=== PATIENT | female | born 1960 | race Caucasian/White ===

== ENCOUNTER 2021-11-26 11:50 | Outpatient (REF) | payer MEDICARE, SELFPAY ==
[2021-11-26 14:13] LABS: MANUAL DIFF FLAG NO
[2021-11-26 14:17] LABS: Basophils Absolute Auto 0.1 X10*3/uL (0.0-0.2); Basophils Percent Auto 0.9 % (0-2); Eosinophils Absolute Auto 0.2 X10*3/uL (0.0-0.4); Hematocrit 42.3 % (37.0-47.0); Hemoglobin 14.3 g/dl (12.0-16.0); Imm Gran Abs Auto 0.03 X10*3/uL (0.00-0.03); Imm Gran Pct Auto 0.3 % (0.0-0.4); Lymphocytes Absolute Auto 3.9 X10*3/uL (1.2-4.9); Lymphocytes Percent Auto 41.9 % (20-40); Mean Corpuscular HGB Conc 33.8 g/dl (31.0-35.0); Mean Corpuscular Hemoglobin 31.7 pg (27.0-33.0); Mean Corpuscular Volume 93.8 fL (80.0-98.0); Mean Platelet Volume 10.5 fL (9.4-12.3); Monocytes Absolute Auto 0.5 X10*3/uL (0.1-1.2); Monocytes Percent Auto 5.1 % (2-11); Neutrophils Absolute Auto 4.7 x10*3/uL (2.0-8.3); Neutrophils Percent Auto 49.8 % (45-73); Platelet Count 262 X10*3/uL (160-400); Red Blood Count 4.51 X10*6/uL (4.20-5.50); Red Cell Distribution Width 13.1 % (11.0-16.0); White Blood Count 9.4 X10*3/uL (4.8-10.8)
[2021-11-26 14:29] LABS: Alanine Aminotransferase 10 U/L (0-31); Albumin Level 4.3 g/dL (3.5-5.0); Alkaline Phosphatase 81 U/L (39-117); Anion Gap 13 (12-20); Aspartate Amino Transferase 16 U/L (5-31); Bilirubin Total 0.4 mg/dL (0.0-1.0); Blood Urea Nitrogen 10 mg/dL (9-16); Calcium 9.8 mg/dL (8.4-10.2); Carbon Dioxide 27 mmol/L (22-29); Chloride 104 mmol/L (96-108); Cholesterol 198 mg/dL; Estimated Glomerular Filt Rate > 60; Glucose Fasting 87 mg/dL (60-99); HDL Cholesterol 52 mg/dL; LDL Cholesterol Calculated 132 mg/dl; Potassium 4.8 mmol/L (3.3-5.1); Sodium 139 mmol/L (135-145); Total Protein 7.2 g/dL (6.5-8.0); Triglycerides 73 mg/dL
[2021-11-26 14:49] LABS: TSH reflex Free T4 0.39 uIU/mL (0.32-4.0)
[2021-11-26 14:58] LABS: Appearance Urine CLEAR; Color Urine YELLOW; Glucose Urine UA NEG (NEG); Leukocyte Esterase Urine NEG (NEG); Nitrite Urine NEG (NEG); PH 7.5 (5.0-8.0); Specific Gravity - Urine <= 1.005 (1.005-1.025); Urine Blood NEG (NEG); Urine Ketones NEG (NEG); Urine Protein NEG (NEG-TRACE)
== END 2021-11-26 11:51 | disposition home or self-care (01) ==
LOC: HO.WFDLDS 11:50
PROVIDERS: Hospitalist; Visit Provider Family Medicine
DX: Z00.00 Encounter for general adult medical examination without abnormal findings (principal)
CPT/HCPCS: 36415; 80053; 80061; 81003; 84443; 85025; 85027

== ENCOUNTER → 2022-02-01 09:44 | Outpatient (REF) | payer MEDICARE, MEDICAID, SELFPAY ==
--- NOTE | 2022-02-01 09:48 | CA_ITS ---
Transthoracic Echocardiogram Patient (Last, First, Middle): Naomy Cervantes, Gender: Female Date of : 1960 Age: 61 Procedure Date: 02/01/2022 Procedure Type: Transthoracic Echocardiogram Location: OP Height: 165.1 cm Weight: 57.61 kg BSA: 1.63 m2 Heart Rate: bpm BP: 130 / 82 mmHg Wood Scrap Handler: TO Referring MD: Ramesh Ventura MD Symptoms: R01.1 - Cardiac murmur, unspecified Study Quality: Fair Conclusions: - Normal left ventricular size and systolic function. There is mildly increased left ventricular wall thickness. The visually estimated ejection fraction is between 60-65%. - Normal right ventricular cavity size and systolic function. - The left atrium is moderately dilated. - There is mild dilatation of the ascending aorta measuring 3.60 cm. Findings Left Ventricle Normal left ventricular size and systolic function. There is mildly increased left ventricular wall thickness. The visually estimated ejection fraction is between 60-65%. There is no evidence of regional wall motion abnormalities. Abnormal diastolic function is noted. Spectral Doppler is indicative of an impaired relaxation filling pattern. E/E prime ratio is between 8 and 15 consistent with indeterminate filling pressures. Right Ventricle Normal right ventricular cavity size and systolic function. Atria The left atrium is moderately dilated. Aortic Valve There is a normal trileaflet aortic valve. There is mild calcification of the aortic valve. There is no aortic valve stenosis. There is no aortic valve regurgitation. Mitral Valve The mitral valve appears normal. There is trace mitral valve regurgitation. There is no mitral valve stenosis. Pulmonic Valve Normal pulmonic valve structure and function. There is no pulmonic valve regurgitation. Tricuspid Valve Normal tricuspid valve structure and function. There is no tricuspid valve regurgitation. Tricuspid regurgitation envelope is inadequate for calculation of right ventricular systolic pressure. Normal right atrial pressure. Great Vessels There is mild dilatation of the ascending aorta measuring 3.60 cm. The visualized portions of the pulmonary artery and branches are normal. Venous The inferior vena cava is normal in size and collapses greater than 50% with inspiration. Pericardium/Pleural There is no evidence of pericardial effusion. Prior Study Comparison No prior study available for comparison. Measurements 2D Linear Measurements IVSd: 1.10 0.6-0.9/0.6-1.0 cm LVIDd: 4.89 3.9-5.3/4.2-5.9 cm LVIDd Index: 3.00 2.4-3.2/2.2-3.1 cm/m2 LVIDs: 3.47 2.0-3.6 cm LVPWd: 0.97 0.7-1.1 cm LA Diam: 3.90 2.7-3.8/3.0-4.0 cm LAIDs Index: 2.39 1.5-2.3 cm/m2 LV Mass: 228.58 67-162/88-224 g LV Mass Index: 140.23 43-95/49-115 g/m2 LVOT Diam: 2.10 3.0+(-)1.3 cm 2D Systolic Function EF 4C: 54.50 >55% EF 2C: 57.00 >55% EF BiP: 55.70 >55% Mitral Valve MV Pk E: 0.65 MV PK A: 0.80 MV Decel Time: 229.00 E/A: 0.80 E'Lateral: 6.74 E'Medial: 6.20 E/E' Med: 10.40 E/E' Lat: 9.60 PHT: 67.00 MVA PHT: 3.28 Decel Barry: 2.83 Aortic Valve AoV Pk Tiago: 1.68 AoV Mn Tiago: 1.07 AoV VTI: 0.35 AoV Pk Grad: 11.00 Aov Mn Grad: 5.00 ERVIN Cont.VTI: 2.15 LVOT LVOT Pk Tiago: 0.99 LVOT Mn Tiago: 0.60 LVOT VTI: 0.22 LVOT Pk Grad: 4.00 LVOT Mn Grad: 2.00 LVOT Diam: 2.10 LVOT Area: 3.46 Diastolic Function MV Pk E: 0.65 MV Pk A: 0.80 E/A: 0.80 E'Medial: 6.20 E/E' Med: 10.40 E' Laterial: 6.74 E/E' Lat: 9.60 Right Ventricle TAPSE (mm): 20.70 TVS' Tiago: 12.10 Tricuspid Valve RA Press: 3.00 Great Vessels Aorta Sinus of Valsalva: 3.51 2.0-3.5 cm Ao Asc: 3.60 2.1-3.4 cm Updated in Other Vendor System with Status of Final Carlitos Torres MD electronically signed on 02/04/2022 11:05:21 PM with status of Final
== END ==
LOC: HO.CARD 09:44
PROVIDERS: PCP Family Medicine; Visit Provider Family Medicine
DX: R01.1 Cardiac murmur, unspecified (principal)
CPT/HCPCS: 93306

== ENCOUNTER 2022-07-29 10:59 | Outpatient (REF) | payer MEDICARE, MEDICAID, SELFPAY ==
--- NOTE | ~2022-07-29 | XR_ITS ---
EXAMINATION: XR LUMBOSACRAL SPINE CLINICAL INFORMATION: Sciatica COMPARISON: None TECHNIQUE: Three views of the lumbosacral spine. FINDINGS: No acute fracture or traumatic malalignment. Vertebral body heights maintained. Mild loss of disc space height at L2-L3 and L4-L5. Facet arthropathy throughout the lumbar spine. Mild bilateral sacroiliac arthrosis. A darcy pin projects over the right pelvis, presumably external to the patient. Clinical correlation recommended. XR/XR lumbar spine 2-3V IMPRESSION: No acute findings. Lumbar spondylosis as described.
--- NOTE | ~2022-07-29 | XR_ITS ---
EXAMINATION: XR HIP, LEFT CLINICAL INFORMATION: Sciatica COMPARISON: None TECHNIQUE: Two views of the left hip. FINDINGS: Crescentic sclerosis within the superior femoral head reflective of avascular necrosis. Femoral head remains spherical without evidence of subchondral bone plate collapse. Mild hip joint space narrowing. Soft tissues unremarkable. XR/XR hip LT min 2V IMPRESSION: Left femoral head avascular necrosis, without collapse of the subchondral bone plate at this time.
--- NOTE | ~2022-07-29 | XR_ITS ---
EXAMINATION: XR WRIST, RIGHT CLINICAL INFORMATION: Pain COMPARISON: None TECHNIQUE: PA, lateral, and oblique views of the right wrist. FINDINGS: No acute fracture or dislocation. Mild radiocarpal joint space narrowing. Joint spaces otherwise maintained. Small marginal ossified is along the first CMC joint. No erosive changes. Soft tissues unremarkable. XR/XR wrist RT 2V IMPRESSION: * No acute findings. * Mild degenerative changes as described.
[2022-07-29 11:48] LABS: MANUAL DIFF FLAG NO
[2022-07-29 12:04] LABS: Basophils Absolute Auto 0.1 X10*3/uL (0.0-0.2); Basophils Percent Auto 0.7 % (0-2); Eosinophils Absolute Auto 0.2 X10*3/uL (0.0-0.4); Eosinophils Percent Auto 1.5 % (0-4); Hematocrit 42.5 % (37.0-47.0); Imm Gran Abs Auto 0.06 X10*3/uL (0.00-0.03); Imm Gran Pct Auto 0.5 % (0.0-0.4); Lymphocytes Absolute Auto 4.2 X10*3/uL (1.2-4.9); Lymphocytes Percent Auto 37.2 % (20-40); Mean Corpuscular HGB Conc 32.9 g/dl (31.0-35.0); Mean Corpuscular Hemoglobin 31.2 pg (27.0-33.0); Mean Corpuscular Volume 94.7 fL (80.0-98.0); Mean Platelet Volume 9.8 fL (9.4-12.3); Monocytes Absolute Auto 0.5 X10*3/uL (0.1-1.2); Monocytes Percent Auto 4.3 % (2-11); Neutrophils Absolute Auto 6.3 x10*3/uL (2.0-8.3); Neutrophils Percent Auto 55.8 % (45-73); Platelet Count 310 X10*3/uL (160-400); Red Blood Count 4.49 X10*6/uL (4.20-5.50); Red Cell Distribution Width 13.2 % (11.0-16.0); White Blood Count 11.3 X10*3/uL (4.8-10.8)
[2022-07-29 12:38] LABS: Appearance Urine Clear; Color Urine Yellow; Glucose Urine UA Negative (Negative); Leukocyte Esterase Urine Small (1+) (Negative); Nitrite Urine Negative (Negative); UMIC TRIGGER UA YES; Urine Blood Negative (Negative); Urine Ketones Negative (Negative); Urine Protein Negative (Neg-Trace)
[2022-07-29 12:58] LABS: Bacteria Urine None Seen (None Seen); Hyaline Casts Urine 0-2 /LPF (0-2); RBC Urine 0-2 /HPF (0-2); WBC Urine 0-5 /HPF (0-5)
[2022-07-29 13:03] LABS: Creatinine Urine 70.98 mg/dL; Microalbum/Creatinine Ratio Ur 42.2 ug/mg cr
[2022-07-29 13:08] LABS: TSH reflex Free T4 0.59 uIU/mL (0.32-4.0)
[2022-07-29 13:38] LABS: Anion Gap 15 (12-20); Blood Urea Nitrogen 17 mg/dL (9-16); Carbon Dioxide 24 mmol/L (22-29); Chloride 108 mmol/L (96-108); Potassium 4.9 mmol/L (3.3-5.1); Sodium 142 mmol/L (135-145)
[2022-07-29 13:39] LABS: Alanine Aminotransferase 13 U/L (0-31); Albumin Level 4.3 g/dL (3.5-5.0); Alkaline Phosphatase 65 U/L (39-117); Aspartate Amino Transferase 18 U/L (5-31); Bilirubin Total 0.4 mg/dL (0.0-1.0); Calcium 9.9 mg/dL (8.4-10.2); Cholesterol 195 mg/dL; Estimated Glomerular Filt Rate > 60; Glucose Fasting 85 mg/dL (60-99); HDL Cholesterol 45 mg/dL; LDL Cholesterol Calculated 129 mg/dl; Total Protein 7.1 g/dL (6.5-8.0); Triglycerides 109 mg/dL
== END 2022-07-29 11:00 | disposition home or self-care (01) ==
LOC: HO.XRAY 10:59
PROVIDERS: PCP Family Medicine; Referring Provider Family Medicine; Visit Provider Family Medicine
DX: Z00.00 Encounter for general adult medical examination without abnormal findings (principal); I77.810 Thoracic aortic ectasia; I10 Essential (primary) hypertension; M54.32 Sciatica, left side; M25.531 Pain in right wrist
CPT/HCPCS: 36415; 72100; 73100; 73502; 80053; 80061; 81001; 82043; 84443; 85025; 99202

== ENCOUNTER → 2022-08-19 10:39 | Outpatient (BNVA) | payer MEDICARE, MEDICAID, SELFPAY | PROVIDERS: PCP Family Medicine; Visit Provider Orthopaedic Surgery | DX: M87.052 Idiopathic aseptic necrosis of left femur (principal); M54.16 Radiculopathy, lumbar region | CPT/HCPCS: 99202 ==

== ENCOUNTER 2022-09-04 09:02 | Outpatient (REF) | payer MEDICARE, MEDICAID, SELFPAY ==
--- NOTE | ~2022-09-04 | US_ITS ---
EXAMINATION: US RETROPERITONEAL LIMITED (AORTA) CLINICAL INFORMATION: Abdominal aortic aneurysm, without rupture, unspecified. COMPARISON: None available. TECHNIQUE: Choe-scale, color Doppler and spectral Doppler evaluation of the abdominal aorta. FINDINGS: Scattered atherosclerotic disease. The measurements of the aorta in maximum AP and transverse dimensions respectively are as follows: Proximal: 2.8 x 2.7 cm. Mid: 2.3 x 2.1 cm. Distal: 1.9 x 2.1 cm. PSV: 95 cm/s. The measurements of the common iliac arteries in maximum AP and TRV dimensions are as follows: Right Common Iliac Artery: 1.2 x 1.1 cm. Left Common Iliac Artery: 0.9 x 1.0 cm. US/US abdominal aortic aneurysm IMPRESSION: Normal caliber abdominal aorta by sonographic evaluation.
== END 2022-09-04 09:03 | disposition home or self-care (01) ==
LOC: HO.US 09:02
PROVIDERS: PCP Family Medicine; Visit Provider Internal Medicine
DX: I71.40 Abdominal aortic aneurysm, without rupture, unspecified (principal)
CPT/HCPCS: 76706

== ENCOUNTER → 2022-10-14 10:54 | Outpatient (BNVA) | payer MEDICARE, MEDICAID, SELFPAY | PROVIDERS: PCP Family Medicine; Visit Provider Nurse Practitioner Family | DX: M87.052 Idiopathic aseptic necrosis of left femur (principal); M54.32 Sciatica, left side; M47.27 Other spondylosis with radiculopathy, lumbosacral region; M53.3 Sacrococcygeal disorders, not elsewhere classified; F17.200 Nicotine dependence, unspecified, uncomplicated; Z71.6 Tobacco abuse counseling | CPT/HCPCS: 99202 ==

== ENCOUNTER 2022-10-29 09:00 | Outpatient (REF) | payer MEDICARE, MEDICAID, SELFPAY ==
--- NOTE | ~2022-10-29 | MM_ITS ---
EXAMINATION: MM SCREENING DIGITAL BREAST TOMOSYNTHESIS, BILATERAL CLINICAL INFORMATION: Screening. Asymptomatic. The lifetime risk of breast cancer based on the Tyrer-Cuzick Model is 13%. COMPARISON: Outside mammography: 07/14/2020, 04/21/2020 ([facility], [place], [place]). TECHNIQUE: Digital breast tomosynthesis is performed in both the craniocaudal and mediolateral oblique views along with computer-aided detection (CAD). Synthesized 2D images are generated from the tomosynthesis. FINDINGS: The breasts are heterogeneously dense, which may obscure small masses (ACR BI-RADS breast composition Category c). Breast tissue composition borders on average fibroglandular. There is fibronodular parenchymal pattern central and anterior breasts similar to prior outside exam. No architectural abnormality. There is biopsy clip marker posterior lower inner quadrant right breast. There are scattered bilateral coarse and some punctate and vascular calcifications again seen. The axilla and skin contours are unremarkable. No significant changes. MM/MM tomosynthesis screening BI IMPRESSION: No mammographic evidence of malignancy. ASSESSMENT: BI-RADS 2: Benign RECOMMENDATION: Routine annual mammography screening. This patient's information was entered into a reminder system with a target due date for their next mammogram.
== END 2022-10-29 09:01 | disposition home or self-care (01) ==
LOC: HO.MAMMO 09:00
PROVIDERS: PCP Family Medicine; Visit Provider Family Medicine
DX: Z12.31 Encounter for screening mammogram for malignant neoplasm of breast (principal)
CPT/HCPCS: 77063; 77067

== ENCOUNTER 2022-11-27 18:51 | Outpatient (REF) | payer MEDICARE, MEDICAID, SELFPAY ==
--- NOTE | ~2022-11-27 | MR_ITS ---
EXAMINATION: MR LUMBAR SPINE WITHOUT CONTRAST CLINICAL INFORMATION: Radiculopathy COMPARISON: Lumbar spine radiographs 07/29/2022 TECHNIQUE: MRI of the lumbar spine was obtained using routine sequences without contrast. FINDINGS: Normal lumbar lordosis is preserved. Trace retrolisthesis at L4-L5. Vertebral body heights are maintained. Somewhat heterogeneous marrow signal without suspicious osseous lesion. Multilevel disc desiccation with up to moderate disc height loss at L4-L5, where there is degenerative endplate irregularity/Schmorl's node formation and mixed type I and to a lesser extent type II Modic endplate change. Multilevel anterior osteophytic spurring is seen.There are multilevel degenerative changes with level by level detail as follows: L1-L2: Trace annular disc bulge with superimposed broad-based left paracentral/subarticular disc protrusion and mild bilateral facet arthrosis with ligamentum flavum thickening. No spinal canal stenosis noting slight asymmetric left subarticular zone narrowing. No neural foraminal stenosis. L2-L3: Shallow annular disc bulge and mild bilateral facet arthrosis and ligamentum flavum thickening and minor subchondral cystic change/marrow edema on the right. Mild spinal canal narrowing. Suggestion of soft tissue within the proximal aspect of the right neural foramen (image 7, series 6), favored to reflect sequestered disc material, but without mass effect along the traversing or exiting nerve roots. Mild to moderate right and minimal left neural foraminal encroachment. L3-L4: Trace annular disc bulge with superimposed left greater than right foraminal disc protrusions and likely associated annular fissures. Mild bilateral facet arthrosis and ligamentum flavum thickening. Mild spinal canal narrowing and mild left greater than right neural foraminal stenosis with encroachment upon the exiting left L3 nerve root. L4-L5: Annular disc bulge with superimposed broad-based paracentral disc protrusion/inferiorly migrated disc extrusion with associated annular fissure and mild to moderate bilateral facet arthrosis with ligamentum flavum thickening. Mild to moderate spinal canal stenosis and severe bilateral subarticular zone narrowing with mass effect upon the traversing bilateral L5 nerve roots. Mild to moderate left and mild right neural foraminal stenosis with mass effect along the extraforaminal L4 nerve roots. L5-S1: Annular disc bulge with shallow central disc protrusion and right central annular fissure. Moderate bilateral facet arthrosis. No spinal canal stenosis. Mild right without left neural foraminal stenosis with mass effect along the extraforaminal right L5 nerve root. The conus medullaris terminates at the level of L2. The distal spinal cord is normal in appearance. . No epidural fluid collection, hematoma, or mass. There is mild fatty infiltration of the paraspinal musculature. Right renal cysts for which no further imaging follow-up is advised. The abdominal aorta is of normal contour and caliber. Incidental avascular necrosis of the superior weightbearing surface of the bilateral femoral heads (image 15, series 1) with corresponding serpiginous sclerotic margins on the left seen retrospectively on prior lumbar spine radiographs. MR/MR lumbar spine wo con IMPRESSION: 1. Multilevel lumbar spondylosis, worst at L4-L5 where a broad-based paracentral disc protrusion/inferiorly migrated disc extrusion with associated annular fissure contributes to mild to moderate spinal canal stenosis, severe bilateral subarticular zone narrowing with mass effect upon the traversing bilateral L5 nerve roots, mild to moderate left and mild right neural foraminal stenosis with mass effect along the extraforaminal L4 nerve roots. Additional level by level as above. 2. Avascular necrosis of the superior weightbearing surface of the bilateral femoral heads with corresponding serpiginous sclerotic margins on the left seen retrospectively on prior lumbar spine radiographs, which would be better evaluated on dedicated MRI of the hips.
== END 2022-11-27 18:52 | disposition home or self-care (01) ==
LOC: HO.MRI 18:51
PROVIDERS: PCP Family Medicine; Visit Provider Nurse Practitioner Family
DX: M47.817 Spondylosis without myelopathy or radiculopathy, lumbosacral region (principal); M54.32 Sciatica, left side; M87.052 Idiopathic aseptic necrosis of left femur; M54.16 Radiculopathy, lumbar region
CPT/HCPCS: 72148

== ENCOUNTER → 2022-12-05 15:25 | Outpatient (BNVA) | payer MEDICARE, MEDICAID, SELFPAY | PROVIDERS: PCP Family Medicine; Visit Provider Nurse Practitioner Family | DX: M48.061 Spinal stenosis, lumbar region without neurogenic claudication (principal); M47.817 Spondylosis without myelopathy or radiculopathy, lumbosacral region; M54.16 Radiculopathy, lumbar region; M87.052 Idiopathic aseptic necrosis of left femur; M47.812 Spondylosis without myelopathy or radiculopathy, cervical region; M62.838 Other muscle spasm; M53.3 Sacrococcygeal disorders, not elsewhere classified | CPT/HCPCS: 99212 ==

== ENCOUNTER 2023-01-08 13:20 | Outpatient (AMB) | payer MEDICARE, MEDICAID, SELFPAY ==
--- NOTE | 2023-01-08 13:41 | HO.SPINEOV ---
Intake Intake Visit Reasons: radiculopathy Intake Note: Ms. Cervantes is here today c/o low back pain. [place] [facility] [place] Forensic Economist Required: No Allergies No Known Allergies Allergy (Verified 12/12/22 08:40) Assessment & Plan Assessment & Plan (1) Lumbar disc herniation: Code(s): M51.26 - Other intervertebral disc displacement, lumbar region (2) Lumbar disc herniation with radiculopathy: Code(s): M51.16 - Intervertebral disc disorders with radiculopathy, lumbar region Plan Dear Colleague, Thank you for referring Naomy to our office today. She is a 62-year-old female with longstanding low back pain and radicular symptoms in an L5 dermatome distribution down her left leg. She also endorses some mild radicular symptoms in L5 distribution that come and go down her right leg. She states the pain in her left leg is much more significant and is the main cause of her discomfort and pain. She states that her pain has become worse the last few months but has been persistent for the last several years. She reports no inciting incident that she is aware of. She has tried [id number] medications, physical therapy, cortisone injections, and pain management, with minimal relief. PMH: Avascular necrosis of left femoral head, hypertension. Social hx: Smokes 1 pack per day, uses marijuana. No other substance use. Medications: Baclofen, diclofenac, fluticasone, lisinopril, nicotine patch, tramadol. Allergies: NKDA Physical exam: The patient presents as A&OX4, she is in no acute distress. She has grade 4/5 strength in her EHLs. Rest of lower extremities are grade 5/5. Sensation is decreased on lateral left leg, in a L5 distribution. (+) L sided straight leg raise. (-) Babinski Imaging review: 11/27/22 MRI: The patient appears to have a L4-L5 disc herniation, causing spinal nerve compression, greater on the left side than the right. Impression: The patient is a 62-year-old female with longstanding low back pain and radicular symptoms greater on the left than the right. Her radicular symptoms are an L5 distribution. She has tried conservative management with minimal symptom relief. Her imaging was reviewed with Dr. Cooley, who recommended a left-sided L4-5 microdiskectomy. The patient was agreeable to this plan, and scheduled a microdiskectomy with our office for March 30. Thank you for allowing us to care for your patient. The total time spent with this visit with this patient was 45 minutes reviewing history, physical exam, MRI imaging review, and implementation of treatment plan or further diagnostic testing Da Cooley MD,PhD [facility] Coding Level of Care Code New Pt Level 4 (73101) Diagnoses Lumbar disc herniation M51.26 Lumbar disc herniation with radiculopathy M51.16 Time Spent (min) 45
== END 2023-01-08 14:30 | disposition home or self-care (01) ==
PROVIDERS: PCP Family Medicine; Referring Provider Nurse Practitioner Family; Visit Provider Physician Assistant
DX: M51.26 Other intervertebral disc displacement, lumbar region (principal); M51.16 Intervertebral disc disorders with radiculopathy, lumbar region
CPT/HCPCS: 99204

== ENCOUNTER → 2023-01-08 13:20 | Outpatient (BNVA) | payer MEDICARE, MEDICAID, SELFPAY | PROVIDERS: PCP Family Medicine; Visit Provider Physician Assistant | DX: M51.26 Other intervertebral disc displacement, lumbar region (principal); M51.16 Intervertebral disc disorders with radiculopathy, lumbar region | CPT/HCPCS: 99202 ==

== ENCOUNTER 2023-02-25 08:26 | Outpatient (AMB) | payer MEDICARE, MEDICAID, SELFPAY ==
--- NOTE | 2023-02-25 08:32 | A.OFFVIS_ITS ---
Intake Vital Signs 02/25/23 08:34 Height 5 ft 6 in Weight 127 lb BMI 20.5 BP 116/66 Intake Visit Reasons: New patient Annual/DO NOT RS Intake Note: bumps on vagina area Vp Director Of Finance Required: No Information Interpreted: non-clinical & clinical Mirror Framer: Mirror Framer Present (Laura ESPINO) Accompanied by: Self / Same As Patient Allergies No Known Allergies Allergy (Verified 02/25/23 08:36) Post menopausal: Yes HPI HPI Comments History of Present Illness Details Presenting for annual exam. No complaints except for bumps on her labia. Last Pap/HPV was ? few years ago Last Mammogram was in 11/05 was BI-RADS 2 Last Colonoscopy was 8 years ago according the patient, no records available, the patient states that she will be due in 2 years for another screening colonoscopy PFSH Medical History High blood pressure Surgical History History of ankle surgery History of eye surgery Family History Mother Breast cancer Sister Breast cancer Father Diabetes Other Substance use disorder Social History Housing: Apartment Alcohol intake: never Patient Tobacco Use Status: Current everyday Tobacco user Tobacco use type: Cigarette Cigarette Packs Per Day: 1 e-Cigarette/Vaping Use: Never Used Second Hand Smoke Exposure: Yes Substance Use Type: Marijuana service: No Current occupational status: disabled 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 Current occupational exposures/hazards: No Sexually active: No Sexual orientation: Straight/Heterosexual Gender identity: Female Cognitive needs: No Hearing needs: No Vision needs: No Female Reproductive History Menstrual Menopause type: natural Total pregnancies: 4 Full term: 3 Number of Living Children: 3 Ab induced: 1 Date of Mammogram: 10/29/22 Review of Systems Const All systems reviewed & are unremarkable except as noted in HPI and below Card Reports as per HPI Resp Reports as per HPI GI Reports as per HPI and Reports no additional complaints Reports as per HPI Physical Exam Vital Signs: Last Vital Signs BP 116/66 02/25/23 08:34 BMI result Body Mass Index 20.5 Const General: cooperative, healthy appearing and comfortable Chest Chest palpation & inspection: normal inspection of the chest and normal palpation of entire chest wall Breast/axilla inspection: normal inspection of the breasts and normal inspection of the axillae Breast/axilla palpation: normal palpation of the breasts, normal palpation of the axillae and no axillary lymphadenopathy Resp Effort & Inspection: normal respiratory effort Auscultation: clear to auscultation bilaterally Percussion: percussion normal Cardio Palpation: normal PMI Rate: regular rate Rhythm: regular rhythm Heart sounds: no murmurs and no rubs Peripheral pulses: Peripheral pulses 2+ throughout GI Inspection: Yes normal to inspection Palpation (GI): Soft to palpation, nontender, no guarding, not rigid and No hepatosplenomegaly present Percussion: Yes normal to percussion Auscultation: normal bowel sounds Rectal Exam - Female: deferred General: Yes bladder normal to palpation External Female Exam: lesion (Left labia minora 2 lesions, left perirectal lesion) Speculum Exam - Vagina: normal appearance of the vagina, normal palpation, normal vaginal discharge and not erythematous Speculum Exam - Cervix: normal appearance of the cervix and normal palpation Bimanual exam- vagina & uterus: normal bimanual exam, normal palpation, uterine size normal, bladder normal to palpation, consistency normal and normal palpation Bimanual Exam- Adnexa, other: normal adnexae, no masses and no tenderness Assessment & Plan Assessment & Plan (1) Well woman exam: Code(s): Z01.419 - Encounter for gynecological examination (general) (routine) without ab normal findings Plan: Co testing done. Counseled the patient about the recommended dietary allowance of 1200 mg of Calcium & 600 IU of vitamin D. Instructions given to the patient to schedule next screening Mammogram in 11/06 . The patient was instructed to perform monthly self-breast exams and schedule annual exam in a year; all questions answered and the patient verbalized understanding. (2) Vulvar lesion: Comment: Left labia minora 2 lesions, left perirectal lesion Code(s): N90.89 - Other specified noninflammatory disorders of vulva and perineum Plan: Discussed with the patient the finding on pelvic exam showing Left labia minora 2 lesions, left perirectal lesion, recommended biopsies. Instructions given the patient to schedule an appointment for excision/biopsy of labial lesions. All questions answered, the patient verbalized understand Coding Level of Care Code New Pt Prev Care 40-64y(24804) Diagnoses Well woman exam Z01.419 Vulvar lesion N90.89
[2023-02-25 08:34] VITALS: BP 116/66; BMI 20.5
== END 2023-02-25 09:00 | disposition home or self-care (01) ==
PROVIDERS: Visit Provider Obstetrics & Gynecology
DX: Z01.419 Encounter for gynecological examination (general) (routine) without abnormal findings (principal); N90.89 Other specified noninflammatory disorders of vulva and perineum
CPT/HCPCS: 99386

== ENCOUNTER 2023-02-25 08:26 | Outpatient (REF) | payer MEDICARE, MEDICAID, SELFPAY ==
[2023-03-01 03:34] LABS: HPV mRNA E6/E7 rflx Not Detected (Not Detected)
== END 2023-02-25 08:27 | disposition home or self-care (01) ==
LOC: HO.LNP 08:26
PROVIDERS: Visit Provider Obstetrics & Gynecology
DX: Z01.419 Encounter for gynecological examination (general) (routine) without abnormal findings (principal); N90.89 Other specified noninflammatory disorders of vulva and perineum
CPT/HCPCS: 87624; 88142

== ENCOUNTER 2023-04-22 15:28 | Outpatient (AMB) | payer MEDICARE, MEDICAID, SELFPAY ==
--- NOTE | 2023-04-22 15:35 | A.OFFPC_ITS ---
Vital Signs 04/22/23 15:36 Height 5 ft 6 in Weight 138 lb BMI 22.3 BP 110/64 Blood Pressure Location Lt brachial Position Sitting Respiration 12 Pulse 75 Pulse Source Pulse Oximeter Temp 98.9 F Temp Source Oral Pulse Oximetry (%) 98 Oxygen Delivery Method Room Air Intake Visit Reasons: Spinal surgery-05/20 Intake Note: Patient is here for preop clearance for spinal surgery on 05/20/23. Patient reports she has an appointment on Friday04/28/23 for her EKG. Road Traffic Controller Required: No Accompanied by: Self / Same As Patient Allergies No Known Allergies Allergy (Verified 04/22/23 16:02) Medication List - Last Reconciled 04/22/23 by Carlie Cool CNP lisinopril 20 mg PO DAILY 90 days Tobacco use date assessed: 04/22/23 HPI HPI Comments History of Present Illness Details 62-year-old female presents for a preop exam. She is scheduled to have spinal surgery with [facility] on 05/20/2023. She has EKG schedule on 04/18/2023. She reports chronic generalized back pain with left sciatica which has been ongoing for several months. She notes that no pain regimen is effective. She had blood work done in February 2023 which were unrevealing. She has history of slightly elevated WBC which is equivocal. [facility] Medical History EtOH dependence Heart murmur High blood pressure Surgical History Hx of bilateral cataract extraction Hx of tonsillectomy History of ankle surgery History of eye surgery Family History Mother Breast cancer Sister Breast cancer Father Diabetes Other Substance use disorder Social History Housing: Apartment Are you a primary tree care foreman to a significant other at home: No Do you presently have visiting nurse or other home services: No Alcohol intake: never Patient Tobacco Use Status: Current everyday Tobacco user Tobacco use type: Cigarette Cigarette Packs Per Day: 1.0 Cigarettes Per Day: 20.0 Years Smoked: 10 e-Cigarette/Vaping Use: Never Used Second Hand Smoke Exposure: Yes Substance Use Type: Marijuana service: No Current occupational status: disabled 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 Royal George, Niki Huff, Donald Geller and colleagues, with an educational jeison from [employer]. Review of Systems Const Details: Const Denies chills, Denies fatigue, Denies fever(s), Denies headache(s) and Denies weakness ENT Denies dizziness and Denies headache(s) Card Denies chest pain, Denies lightheadedness, Denies dyspnea and Denies other (Palpitations) Resp Denies cough, Denies dyspnea, Denies wheezing and Denies other ( shortness of breath) GI Denies abdominal pain, Denies melena, Denies hematochezia, Denies change in bowel habits, Denies dyspepsia and Denies nausea Denies hematuria and Denies dysuria Musc Reports as per HPI Skin/Breast Denies rash, Denies unusual bruising and Denies wounds Neuro Denies abnormal gait, Denies dizziness, Denies headache(s), Denies memory loss, Denies numbness, Denies Sensory deficit (Neuro), Denies tingling and Denies weakness Psych Denies anxiety, Denies depression, Denies memory loss Endo Denies cold intolerance, Denies fatigue, Denies heat intolerance, Denies polydipsia and Denies polyuria Aller/Immun Denies wheezing Physical exam (Primary Care) Vital Signs: Last Vital Signs Temp 98.9 F 04/22/23 15:36 Pulse 75 04/22/23 15:36 Resp 12 04/22/23 15:36 BP 110/64 04/22/23 15:36 Pulse Ox 98 04/22/23 15:36 Oxygen Delivery Method Room Air 04/22/23 15:36 BMI result Body Mass Index 22.3 Tobacco/Smoking Status: Tobacco use Status Tobacco use date assessed 04/22/23 04/22/23 15:48 Patient Tobacco Use Status Current everyday Tobacco 04/22/23 15:36 Tobacco use type Cigarette 04/22/23 15:36 e-Cigarette/Vaping Use Never Used 04/22/23 15:36 Thrive Assessment: Date of Thrive Assessment Date Thrive assessed 07/24/22 04/22/23 15:36 Const Other: General: no acute distress and well developed Nutritional Appearance: well nourished Orientation/consciousness: patient oriented x3 HENMT Head: Yes normocephalic and Yes atraumatic Eyes General: appearance normal, both eyes and all related structures Pupils: Equal, round and reactive pupils present EOM: EOMs intact bilaterally Resp Effort & Inspection: normal respiratory effort Auscultation: clear to auscultation bilaterally Cardio Rate: regular rate Rhythm: regular rhythm Heart sounds: S1 normal heart sound present, S2 normal heart sound present, no gallops, no murmurs and no rubs GI Palpation (GI): No Abdominal aortic bruit present, Soft to palpation, nontender, No hepatosplenomegaly present and No Rebound tenderness present Auscultation: normal bowel sounds General: Yes no CVA tenderness Back/Spine/Pelvis Back: no CVA tenderness Cervical Spine: cervical ROM normal and Cervical spine tenderness Thoracic/Lumbar Spine: thoraco-lumbar ROM normal, No pain with thoraco-lumbar ROM, thoracic spinal tenderness and lumbar spinal tenderness Extrem General: Yes normal to inspection, No edema and No calf tenderness Skin General: warm and dry. Normal skin color. Normal skin turgor Neuro General: patient oriented x3, gait normal and no focal neuro deficit Cranial nerves: Yes Equal, round and reactive pupils present Cognition (Neuro): normal cognition Gait exam (Neuro): Normal gait present Sensory Exam: No Sensory deficit (Neuro) Psych Appearance: grossly normal Affect: normal affect Attitude: cooperative Thought process: Normal thought process present Assessment and Plan Assessment & Plan (1) Preop examination: Code(s): Z01.818 - Encounter for other preprocedural examination Plan: Cervical, thoracic, and lumbar spine tenderness to palpation. Physical exam is otherwise unremarkable Recent labs her unrevealing She appears medically stable at this time and has no contraindications for spinal surgery Advised to get EKG done as scheduled Follow-up with Neuro Spine and scheduled Follow-up with PCP as planned Verbalized understanding and agreed with treatment plan. Coding Level of Care Code Est Pt Level 2 (69102) Diagnoses Preop examination Z01.818
[2023-04-22 15:36] VITALS: BP 110/64; PULSE 75; RESP 12; TEMP 37.2; O2SAT 98; BMI 22.3
== END 2023-04-22 16:25 | disposition home or self-care (01) ==
PROVIDERS: PCP Family Medicine; Visit Provider Nurse Practitioner Family
DX: Z01.818 Encounter for other preprocedural examination (principal)
CPT/HCPCS: 99212

== ENCOUNTER 2023-04-28 08:50 | Outpatient (AMB) | payer MEDICARE, MEDICAID, SELFPAY ==
[2023-04-28 08:50] VITALS: BP 114/62; PULSE 73; BMI 20.6
--- NOTE | 2023-04-28 08:50 | MHC.OFFVIS ---
Intake Vital Signs 04/28/23 08:50 Height 5 ft 6 in Weight 127 lb 13.89 oz BMI 20.6 BP 114/62 Blood Pressure Location Lt brachial Position Sitting Pulse 73 Intake Visit Reasons: pre-op Allergies No Known Allergies Allergy (Verified 04/28/23 08:56) Medication List - Last Reconciled 04/28/23 by Danyell Pang NP-C lisinopril 20 mg PO DAILY 90 days PFSH Medical History EtOH dependence Heart murmur High blood pressure Surgical History Hx of bilateral cataract extraction Hx of tonsillectomy History of ankle surgery History of eye surgery Family History Mother Breast cancer Sister Breast cancer Father Diabetes Other Substance use disorder Social History Housing: Apartment Are you a primary career based intervention coordinator to a significant other at home: No Do you presently have visiting nurse or other home services: No Alcohol intake: never Patient Tobacco Use Status: Current everyday Tobacco user Tobacco use type: Cigarette Cigarette Packs Per Day: 1.0 Cigarettes Per Day: 20.0 Years Smoked: 10 e-Cigarette/Vaping Use: Never Used Second Hand Smoke Exposure: Yes Substance Use Type: Marijuana service: No Current occupational status: disabled Current occupation: [employer] Current occupational exposures/hazards: No Sexual orientation: Straight/Heterosexual Gender identity: Female Cognitive needs: No Hearing needs: No Vision needs: No Review of Systems Const All systems reviewed & are unremarkable except as noted in HPI and below ENT Denies dizziness Card Denies chest pain, Denies chest pain at rest, Denies chest pain with activity, Denies rapid heart rate, Denies pedal edema, Denies edema, Denies leg edema, Denies lightheadedness, Denies palpitations, Denies dyspnea, Denies dyspnea on exertion and Denies orthopnea Resp Denies cough, Denies dyspnea and Denies dyspnea on exertion GI Denies hematochezia and Denies change in stool character Musc Details: back discomfort/ hip discomfort Denies abnormal gait, Denies limited range of motion, Denies muscle cramps, Denies muscle weakness, Denies numbness, Denies radiating pain into limb, Denies stiffness and Denies tingling Neuro Denies abnormal gait, Denies dizziness, Denies numbness and Denies tingling Endo Denies palpitations Physical Exam Vital Signs: Last Vital Signs Pulse 73 04/28/23 08:50 BP 114/62 04/28/23 08:50 BMI result Body Mass Index 20.6 Const General: cooperative, healthy appearing, comfortable and no acute distress Orientation/consciousness: patient oriented x3 Neck Neck: Yes normal visual inspection Resp Effort & Inspection: normal respiratory effort Auscultation: clear to auscultation bilaterally, no crackles, no rales, no rhonchi and no wheezes Cardio Jugular venous distension: no JVD Rate: regular rate Rhythm: regular rhythm Heart sounds: S1 normal heart sound present, S2 normal heart sound present, no murmurs and no rubs GI Inspection: Yes normal to inspection Skin General skin exam: no rashes or lesions noted Neuro General: patient oriented x3 Extrem General: Yes normal to inspection, No no pedal edema and No calf tenderness Psych Appearance: grossly normal Mental Status: mental status grossly normal Speech and movement: Normal speech and movement present Office Procedures EKG Details: Today, read by me, sinus rhythm with PAC, left axis deviation, nonspecific T-wave abnormality, no significant change from prior, rate 73, QTC 405 milliseconds [id number], Complete Assessment & Plan Assessment & Plan (1) Ascending aorta dilatation: Code(s): I77.810 - Thoracic aortic ectasia Plan: History of dilated ascending aorta, mild. Last echocardiogram 02/01/2022 EF 60-65%, left atrium moderately dilated, mildly dilated ascending aorta 3.6 cm. Ultrasound of abdominal aorta done on 09/04/2022 showing normal caliber. Patient needs good blood pressure control. Currently on lisinopril and blood pressure in normal range. She continues to smoke. Benefits of complete smoking cessation reviewed with her. Continue activity as tolerated. Plan for repeat echo 2 years from last, due 01/2024. Cardiology follow-up 1 year, sooner if need (2) Hypertension: Code(s): I10 - Essential (primary) hypertension Qualifiers: Hypertension type: primary hypertension Qualified Code(s): I10 - Essential (primary) hypertension Plan: Well controlled at this time. No med changes made (3) Preop cardiovascular exam: Code(s): Z01.810 - Encounter for preprocedural cardiovascular examination Plan: Preop for back surgery with Dr. Cooley at [facility] under general anesthesia. Patient is low cardiac risk for this procedure. Continue lisinopril. Call/consult Cardiology if needed Orders: Orders CA echo transthoracic complete 10 Months I77.810 - Thoracic aortic ectasia Coding Level of Care Code Est Pt Level 3 (41998) Diagnoses Ascending aorta dilatation I77.810 Primary hypertension I10 Hypertension type: primary hypertension Preop cardiovascular exam Z01.810 CPT Codes EKG - CPT: [id number], Complete ([id number]) Time Spent (min) 24
== END 2023-04-28 09:09 | disposition home or self-care (01) ==
PROVIDERS: PCP Family Medicine; Visit Provider Nurse Practitioner Family
DX: I77.810 Thoracic aortic ectasia (principal); I10 Essential (primary) hypertension; Z01.810 Encounter for preprocedural cardiovascular examination
CPT/HCPCS: 93010; 99213

== ENCOUNTER → 2023-04-28 08:50 | Outpatient (BNVA) | payer MEDICARE, MEDICAID, SELFPAY | PROVIDERS: PCP Family Medicine; Visit Provider Nurse Practitioner Family | DX: Z01.810 Encounter for preprocedural cardiovascular examination (principal); I77.810 Thoracic aortic ectasia; I10 Essential (primary) hypertension | CPT/HCPCS: 93005; 99212 ==

== ENCOUNTER 2023-05-20 06:03 | Day surgery (SDC) | payer MEDICARE, OTHER, SELFPAY ==
--- NOTE | 2023-03-05 | ECG_ITS ---
Test Reason : preop Blood Pressure : / mmHG Vent. Rate : 063 BPM Atrial Rate : 063 BPM P-R Int : 160 ms QRS Dur : 080 ms QT Int : 362 ms P-R-T Axes : 074 -46 -46 degrees QTc Int : 370 ms Normal sinus rhythm Possible Left atrial enlargement Left axis deviation T wave abnormality, consider inferior ischemia Abnormal ECG No previous ECGs available Referred By: Mariajose Vilchis Electronically Signed By:TAMARA JAMA
[2023-03-05 13:12] VITALS: BP 169/81; PULSE 78; RESP 18; O2SAT 99; BMI 21.5
--- NOTE | 2023-03-05 13:22 | P.CONAN_ITS ---
HPI - Anesthesia Eval Consult details Narrative: Rescheduled to 05/15/23 62yo F for Left L4-5 Micro Lumbar discectomy BP up at PAT. Restarted lisinopril today after not taking for a little while . Instructed/educated on taking meds as rx'd. Pt verbalized understanding Smoker Hx ETOH abuse. None x 3 years No recent illness No CP/SOB with > 4 mets Slight EKG changes noted. Reviewed with Dr Correa and ok to proceed. [facility] Active Problems Active Problems: All Active Problems (Updated 03/05/23 @ 13:20 by Pia Menezes, RN) Vulvar lesion (Acute) Well woman exam (Acute) Lumbar disc herniation with radiculopathy (Acute) Lumbar disc herniation (Acute) Muscle spasm (Acute) Cervical spondylosis (Acute) Lumbar spinal stenosis (Acute) Tobacco dependence with current use (Acute) Sacroiliac joint pain (Acute) Lumbar and sacral spondyloarthritis (Acute) Microalbuminuria (Acute) Screening for cervical cancer (Acute) Breast cancer screening by mammogram (Acute) Screening for colon cancer (Acute) Adult general medical exam (Acute) Lumbar radiculopathy (Acute) Avascular necrosis of left femoral head (Acute) Ascending aorta dilatation (Acute) Right wrist pain (Acute) Sciatica, left side (Acute) Aortic dilatation (Acute) Cardiac murmur (Acute) Preop cardiovascular exam (Acute) Hypertension (Acute) Discomfort of left ear (Acute) Back pain (Acute) Daytime sleepiness (Acute) Smoker (Acute) Faint heart murmur (Acute) Neoplasm of uncertain behavior of skin (Acute) Rash (Acute) Weight loss (Acute) Anxiety (Acute) High blood pressure (Acute) Past Medical History Medical History (Updated 03/06/23 @ 06:39 by Pia Menezes RN) EtOH dependence Heart murmur High blood pressure Family History Family History Mother Breast cancer Sister Breast cancer Father Diabetes Other Substance use disorder Family history of problems with anesthesia: No Surgical History Surgical History (Updated 03/05/23 @ 13:20 by Pia Menezes RN) Hx of bilateral cataract extraction Hx of tonsillectomy History of ankle surgery History of eye surgery History of Problems with Anesthesia: No Social History Social History Housing: Apartment Are you a primary pharmacy customer care specialist to a significant other at home: No Do you presently have visiting nurse or other home services: No Alcohol intake: never Patient Tobacco Use Status: Current everyday Tobacco user Tobacco use type: Cigarette Cigarette Packs Per Day: 1.0 Cigarettes Per Day: 20.0 Years Smoked: 10 Smoked in Last 30 Days: Yes e-Cigarette/Vaping Use: Never Used Second Hand Smoke Exposure: Yes Use of substances other than those prescribed or required for medical reasons: Yes Substance Use Type: Marijuana Substance Use Frequency: Daily Have you been hit, kicked, punched, or otherwise hurt by someone within the past year? 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 Current occupational exposures/hazards: No Sexual orientation: Straight/Heterosexual Gender identity: Female Cognitive needs: No Hearing needs: No Vision needs: No Meds Allergies Allergy/AdvReac Type Severity Reaction Status Date / Time No Known Allergies Allergy Verified 02/25/23 08:36 Exam Exam Date and Time: March 05, 2023 1322 Height,Weight and Vital Signs: Height 5 ft 6 in Weight 60.328 kg Last Vital Signs Pulse 78 03/05/23 13:12 Resp 18 03/05/23 13:12 BP 169/81 H 03/05/23 13:12 Pulse Ox 99 03/05/23 13:12 O2 Del Method Room Air 03/05/23 13:12 Narrative Narrative: ECHO 01/2022 Conclusions: - Normal left ventricular size and systolic function. There is mildly increased left ventricular wall thickness. The visually estimated ejection fraction is between 60-65%. - Normal right ventricular cavity size and systolic function. - The left atrium is moderately dilated. - There is mild dilatation of the ascending aorta measuring 3.60 cm. Airway Mallampati Class: II TM Dist: >3cm Neck ROM: Full Loose/Missing/Broken Teeth: No (caps and crowns throughout) Heart: RRR +M Lungs: CTAB Assessment and Plan Assessment Anesthesia Assessment: Anesthesia Plan Discussed, Smoking Cess. Discussed and PAT Visit Final Anesthetic Review Family History of Problems with Anesthesia: No History of Problems with Anesthesia: No
[2023-03-05 14:36] LABS: Hematocrit 38.2 % (37.0-47.0); Hemoglobin 12.7 g/dl (12.0-16.0); Mean Corpuscular HGB Conc 33.2 g/dl (31.0-35.0); Mean Corpuscular Hemoglobin 31.7 pg (27.0-33.0); Mean Corpuscular Volume 95.3 fL (80.0-98.0); Platelet Count 259 X10*3/uL (160-400); Red Blood Count 4.01 X10*6/uL (4.20-5.50); Red Cell Distribution Width 13.6 % (11.0-16.0); White Blood Count 11.3 X10*3/uL (4.8-10.8)
[2023-03-05 15:01] LABS: Anion Gap 11 (12-20); Blood Urea Nitrogen 7 mg/dL (9-16); Calcium 9.6 mg/dL (8.4-10.2); Carbon Dioxide 27 mmol/L (22-29); Chloride 111 mmol/L (96-108); Creatinine Clr Calc Pharmacy 70.9; Estimated Glomerular Filt Rate > 60; Glucose Random 84 mg/dL (60-115); Potassium 3.9 mmol/L (3.3-5.1); Sodium 145 mmol/L (135-145)
[2023-04-28 14:18] VITALS: BMI 20.5
--- NOTE | 2023-05-19 09:14 | HO.ANESPROP2 ---
HPI - Anesthesia Eval Consult details Narrative: 62yo F for Left L4-5 Micro Lumbar discectomy BP up at PAT. Restarted lisinopril today after not taking for a little while . Instructed/educated on taking meds as rx'd. Pt verbalized understanding Smoker Hx ETOH abuse. None x 3 years No recent illness No CP/SOB with > 4 mets Slight EKG changes noted. Reviewed with Dr Correa and ok to proceed. PMFSH Active Problems Active Problems: All Active Problems (Updated 04/28/23 @ 09:13 by Danyell Pang, COUNSELLING PSYCHOLOGIST-C) Preop examination (Acute) Vulvar lesion (Acute) Well woman exam (Acute) Lumbar disc herniation with radiculopathy (Acute) Lumbar disc herniation (Acute) Muscle spasm (Acute) Cervical spondylosis (Acute) Lumbar spinal stenosis (Acute) Tobacco dependence with current use (Acute) Sacroiliac joint pain (Acute) Lumbar and sacral spondyloarthritis (Acute) Microalbuminuria (Acute) Screening for cervical cancer (Acute) Breast cancer screening by mammogram (Acute) Screening for colon cancer (Acute) Adult general medical exam (Acute) Lumbar radiculopathy (Acute) Avascular necrosis of left femoral head (Acute) Ascending aorta dilatation (Acute) Right wrist pain (Acute) Sciatica, left side (Acute) Aortic dilatation (Acute) Cardiac murmur (Acute) Preop cardiovascular exam (Acute) Hypertension (Acute) Discomfort of left ear (Acute) Back pain (Acute) Daytime sleepiness (Acute) Smoker (Acute) Faint heart murmur (Acute) Neoplasm of uncertain behavior of skin (Acute) Rash (Acute) Weight loss (Acute) Anxiety (Acute) High blood pressure (Acute) Past Medical History Medical History EtOH dependence Heart murmur High blood pressure Family History Family History Mother Breast cancer Sister Breast cancer Father Diabetes Other Substance use disorder Family history of problems with anesthesia: No Surgical History Surgical History Hx of bilateral cataract extraction Hx of tonsillectomy History of ankle surgery History of eye surgery History of Problems with Anesthesia: No Social History Social History Household Members Other:: adult son Housing: Apartment Are you a primary primary care physician to a significant other at home: No Do you presently have visiting nurse or other home services: No Alcohol intake: never Comment: all counts correct Patient Tobacco Use Status: Current everyday Tobacco user Tobacco use type: Cigarette Cigarette Packs Per Day: 1.0 Cigarettes Per Day: 14 Years Smoked: 10 e-Cigarette/Vaping Use: Never Used Second Hand Smoke Exposure: Yes Substance Use Type: Marijuana service: No Current occupational status: disabled 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 Current occupational exposures/hazards: No Sexual orientation: Straight/Heterosexual Gender identity: Female Cognitive needs: No Hearing needs: No Vision needs: No Meds Allergies Allergy/AdvReac Type Severity Reaction Status Date / Time No Known Allergies Allergy Verified 04/28/23 08:56 Exam Height,Weight and Vital Signs: Height 5 ft 6 in Weight 57.606 kg Last Vital Signs Pulse 78 03/05/23 13:12 Resp 18 03/05/23 13:12 BP 169/81 H 03/05/23 13:12 Pulse Ox 99 03/05/23 13:12 O2 Del Method Room Air 03/05/23 13:12 Pertinent Lab Results Pertinent Lab Results: Laboratory Tests 03/05/23 13:41 WBC 11.3 H RBC 4.01 L Hgb 12.7 Hct 38.2 MCV 95.3 MCH 31.7 MCHC 33.2 RDW 13.6 Plt Count 259 MPV 11.0 Absolute Nucleated RBC 0.000 Nucleated RBC % (auto) 0.0 Sodium 145 Potassium 3.9 D Chloride 111 H Carbon Dioxide 27 Anion Gap 11 L BUN 7 L Creatinine 0.76 Estim Creat Clear Calc 70.9 Estimated GFR > 60 Random Glucose 84 Calcium 9.6 Narrative Narrative: EKG 02/2023 Vent. Rate : 063 BPM Atrial Rate : 063 BPM P-R Int : 160 ms QRS Dur : 080 ms QT Int : 362 ms P-R-T Axes : 074 -46 -46 degrees QTc Int : 370 ms Normal sinus rhythm Possible Left atrial enlargement Left axis deviation T wave abnormality, consider inferior ischemia Abnormal ECG No previous ECGs availab Assessment and Plan Assessment Anesthesia Assessment: Chart Reviewed Final Anesthetic Review Family History of Problems with Anesthesia: No History of Problems with Anesthesia: No
[2023-05-20] VITALS (10 sets, daily range): BP systolic 112–143; BP diastolic 53–65; PULSE 61–78; RESP 17–20; TEMP 36.3–36.6; O2SAT 96–100
--- NOTE | ~2023-05-20 | FL_ITS ---
EXAMINATION: XR FLUOROSCOPY WITH IMAGES CLINICAL INFORMATION: L4-L5 microlumbar discectomy. COMPARISON: None available. TECHNIQUE: Fluoroscopy Supervised By: Dr. Ramos Cooley. Fluoroscopy Time: Less than 0.1 minute. Cumulative Dose: 1.17 mGy. DAP: 0.242 Gycm2. Images: 1. FINDINGS: Images demonstrate surgical instrument and probe posterior to the L4-5 disc space FL/FL guidance in OR IMPRESSION: Fluoroscopy guidance for L4-5 microlumbar discectomy.
[2023-05-20] MEDS: Gabapentin 300 MG CAPSULE PO (06:41)
[2023-05-20] MEDS: methocarbamoL 750 MG TABLET PO (06:42)
--- NOTE | 2023-05-20 06:51 | HO.ANESPROP2 ---
[facility] Active Problems Active Problems: All Active Problems (Updated 04/28/23 @ 09:13 by Danyell Pang NP-C) Preop examination (Acute) Vulvar lesion (Acute) Well woman exam (Acute) Lumbar disc herniation with radiculopathy (Acute) Lumbar disc herniation (Acute) Muscle spasm (Acute) Cervical spondylosis (Acute) Lumbar spinal stenosis (Acute) Tobacco dependence with current use (Acute) Sacroiliac joint pain (Acute) Lumbar and sacral spondyloarthritis (Acute) Microalbuminuria (Acute) Screening for cervical cancer (Acute) Breast cancer screening by mammogram (Acute) Screening for colon cancer (Acute) Adult general medical exam (Acute) Lumbar radiculopathy (Acute) Avascular necrosis of left femoral head (Acute) Ascending aorta dilatation (Acute) Right wrist pain (Acute) Sciatica, left side (Acute) Aortic dilatation (Acute) Cardiac murmur (Acute) Preop cardiovascular exam (Acute) Hypertension (Acute) Discomfort of left ear (Acute) Back pain (Acute) Daytime sleepiness (Acute) Smoker (Acute) Faint heart murmur (Acute) Neoplasm of uncertain behavior of skin (Acute) Rash (Acute) Weight loss (Acute) Anxiety (Acute) High blood pressure (Acute) Past Medical History Medical History EtOH dependence Heart murmur High blood pressure Functional capacity: independent ambulation Patient : No Family History Family History Mother Breast cancer Sister Breast cancer Father Diabetes Other Substance use disorder Family history of problems with anesthesia: No Surgical History Surgical History Hx of bilateral cataract extraction Hx of tonsillectomy History of ankle surgery History of eye surgery History of Problems with Anesthesia: No Social History Social History Household Members Other:: adult son Housing: Apartment Are you a primary rehab care assistant to a significant other at home: No Do you presently have visiting nurse or other home services: No Alcohol intake: never Patient Tobacco Use Status: Current everyday Tobacco user Tobacco use type: Cigarette Cigarette Packs Per Day: 1.0 Cigarettes Per Day: 14 Years Smoked: 10 e-Cigarette/Vaping Use: Never Used Second Hand Smoke Exposure: Yes Substance Use Type: Marijuana service: No Current occupational status: disabled 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 Current occupational exposures/hazards: No Sexual orientation: Straight/Heterosexual Gender identity: Female Cognitive needs: No Hearing needs: No Vision needs: No Meds Allergies Allergy/AdvReac Type Severity Reaction Status Date / Time No Known Allergies Allergy Verified 04/28/23 08:56 Active Medications: Current Medications Albuterol Sulfate (Albuterol Sulfate (0.083%) 2.5 Mg/3 Ml Vial.Neb) 2.5 mg INHALE ONCE PRN PRN Reason: Shortness of Breath/Wheezing Lactated Ringer's (Lr) 1,000 mls @ 100 mls/hr IVCONT .Q10H CARLOS Exam Height,Weight and Vital Signs: Height 5 ft 6 in Weight 57.606 kg Last Vital Signs Temp 97.9 F 05/20/23 06:45 Pulse 65 05/20/23 06:45 Resp 18 05/20/23 06:45 BP 143/64 H 05/20/23 06:45 Pulse Ox 99 05/20/23 06:45 O2 Del Method Room Air 05/20/23 06:45 Pertinent Lab Results Pertinent Lab Results: Laboratory Tests 03/05/23 13:41 WBC 11.3 H RBC 4.01 L Hgb 12.7 Hct 38.2 MCV 95.3 MCH 31.7 MCHC 33.2 RDW 13.6 Plt Count 259 MPV 11.0 Absolute Nucleated RBC 0.000 Nucleated RBC % (auto) 0.0 Sodium 145 Potassium 3.9 D Chloride 111 H Carbon Dioxide 27 Anion Gap 11 L BUN 7 L Creatinine 0.76 Estim Creat Clear Calc 70.9 Estimated GFR > 60 Random Glucose 84 Calcium 9.6 Airway Mallampati Class: II TM Dist: >3cm Neck ROM: Full Heart: RRR Lungs: CTA Assessment and Plan Assessment Anesthesia Assessment: Anesthesia Plan Discussed and Smoking Cess. Discussed Final Anesthetic Review Family History of Problems with Anesthesia: No History of Problems with Anesthesia: No NPO: Yes ASA Class: II Final Preanesthetic Review: Meds/Allgs Chart Reviewed, Consent Obtained/Reviewed and Anes Risks/Benef Reviewed Patient Risk: Intermediate Procedure Risk: Intermediate Anesthetic Plan Anesthetic Plan: GA Disposition: Standard PACU
--- NOTE | 2023-05-20 07:22 | MHC.SHP ---
Pre-Procedural Eval Section A Date of Service: 05/20/23 The patient is an INPATIENT: No Changes since office visit: No Cold of Flu in the past 2 weeks, No New Medical Problems, No Changes in Medication and No Patient answered all questions The History & Physical has been completed within 30 days and I have reviewed it.: No Section B Chief Complaint: Other intervertebral disc displacement, lumbar reg Allergies: Allergies Allergy/AdvReac Type Severity Reaction Status Date / Time No Known Allergies Allergy Verified 04/28/23 08:56 Review of Systems Sugical H&P ROS: Negative: Constitution, Cardiovascular, Respiratory, Neurological, Psychiatric, Hem-Onc, Allergic/Immunologic, Gastrointestinal, Genitourinary, Musculoskeletal, Integumentary, Endocrine and Eyes/Ears/Nose/Throat Exam Surgical H&P Exam: Not Evaluated: HEENT, Not Evaluated: Heart, Not Evaluated: Lungs, Not Evaluated: Extremities, Not Evaluated: Abdomen, Not Evaluated: Skin and Not Evaluated: Neurological Plan Diagnosis/Plan: Unchanged I have reviewed the history and physical and performed a pertinent physical examination on my patient. No changes have occurred unless specified. left L4-5 lumbar microdiskectomy Time Spent With Patient Time: Total time managing care of this patient today __11__ minutes.
--- NOTE | 2023-05-20 08:40 | P.OP_ITS ---
Operative Note Operative Note Date of Service: 05/20/23 Narrative: Preoperative Diagnosis: L4-5 lateral recess stenosis with compression of the left L5 nerve root Operation: left L4-5 Laminotomy, Partial facetectomy and foraminotomy with use of microscope Consent Informed Consent was obtained for this operation. I have explained the nature, purpose and benefits of the operation. I have discussed the risks and benefit of the operation including possible complications or adverse events with patient/family. Alternative(s) were discussed with the patient with their relative benefits and risks as well as the consequences of not accepting the operation were included in obtaining consent. Surgeon: LORETO ALANIS MD, PHD Procedure Assisted By: Patricio Hughes Description of Procedure this 62-year-old female suffer from mostly left lumbar radiculopathy. an MRI shows L4-5 lateral recess stenosis compressing the left L5 nerve root and an L4- 5 disc bulge.The patient was offered a decompression. The procedure complications were explained. The patient was consented. The patient was brought to the operating room and endotracheally intubated. The patient was turned in prone position on the Enrico frame. Prep and drape was done followed by timeout. The Physician histology assistant provided access. A mid lumbar incision was made followed by release of the paravertebral muscle bilaterally to expose the left L4-5 lamina and facet joints. An intraoperative x-ray was obtained to confirm the correct level. The x-ray demonstrated a grade 1 L4-5 spondylolisthesis. The microscope was brought in. I took over the procedure. The high-speed drill was used to do a left L4-5 laminotomy until flavum ligament was reached. A #2 Kerrison was used to expand the laminotomy near flush to the pedicles and to include a partial facetectomy. The flavum ligament was opened and resected with a #3 Kerrison to decompress the underlying thecal sac. The flavum ligament was removed to decompress the lateral recess and the exiting L5 nerve root. A long nerve hook could be easily passed along the medial side of the pedicle as a sign of adequate decompression. We decided not to do a microdiskectomy as this would further increase instability of the L4-5 segment. This patient is at high risk for an additional fusion surgery in the future. The microscope was removed. Hemostasis was done. The physician histology assistant close the Incision in 2 layers. Steri-Strips were used to approximate incision. An OpSite with Tegaderm was used to cover the incision. All sponge needle counts were correct. Patient was extubated and transported in stable is to recovery room. Anesthesia: General Estimated Blood Loss (ml): 10 mL Complications: None Duration of Surgery: Under 60 Minutes Postoperative Plan: Discharge to home
--- NOTE | 2023-05-20 08:45 | PM.DS ---
DS: Providers Provider Date of Service: 05/20/23 Date of discharge: 05/20/23 Primary care physician: Ramesh Ventura MD Admitting clinician: Ramos Cooley DS: Diagnosis Discharge Diagnosis (1) Lumbar spinal stenosis: Status: Acute DS: Summary Time Attestation Discharge coordination time: Less than 30 minutes Quality: Safe Use of Opioids Does Pt have an Active Cancer Diagnosis on the Problem List?: No Quality: Stroke Does the patient have a stroke diagnosis?: No Physical Exam Vital Signs: Vital Signs: Last Vital Signs Temp 97.9 F 05/20/23 06:45 Pulse 65 05/20/23 06:45 Resp 18 05/20/23 06:45 BP 143/64 H 05/20/23 06:45 Pulse Ox 99 05/20/23 06:45 O2 Del Method Room Air 05/20/23 06:45 BMI result Body Mass Index 20.5 Discharge Plan Discharge Patient Disposition: Home, Self-Care Referrals: Ramesh Ventura MD [Primary Care Provider] - 1 Week Discharge Medications: New docusate sodium [Colace] 100 mg capsule 100 mg PO BID Qty: 20 0RF oxycodone 5 mg tablet 5 mg PO Q4H PRN (Reason: pain) Qty: 30 0RF Rx Instructions: Partial Fill upon patient request. Continued lisinopril 20 mg tablet 20 mg PO DAILY 90 Days Qty: 90 3RF Discharge Orders: Discharge Order (Routine); Ordered 05/20/23 Ordered By: Patricio Davis Diet: Advance to usual diet Activity on Discharge: As tolerated Activity Restrictions/Additional Instructions: After your spinal surgery we ask you to observe the following restrictions/guidelines: Activity: It is normal to feel some discomfort as you increase your activity, but that will improve with time. We ask you avoid heavy lifting or acitivities that cause pain. As a general rule, 8lbs is a safe limit for lifting right after surgery. Walk as much as you feel comfortable but not to exhaustion. You will feel extra tired the first few days after surgery. Stay well hydrated. It is OK to walk up and down stairs You may return to driving when you are off narcotics (such as vicodin, oxycodone, dilaudid, etc), and you are back to normal functional capacity. If you have any concerns please check with office before driving. Return to work is specific to each patient and each surgery, so please speak with your doctor/PA at first follow up. Please bring paperwork such as FMLA at that time if you need it filled out. Medications: For optimum pain control, it is best to start with a combination of 500 mg of Tylenol every 4 hours with 600 mg of Motrin every 8 hours, and use narcotics as needed in between for breakthrough pain. We will give you a short supply of narcotics after surgery (usually one weeks worth). If you need more please call the office but do not use more than prescribed. You will need to give our office 48 hours notice if you need narcotics refilled and we do not fill narcotics on weekends or evenings. If you are on a narcotic, it is a good idea to take a stool softener such as colace or senna to avoid constipation If you take blood thinner such as aspirin, Plavix, Coumadin, Effient, Eliquis etc for conditions such as Afib, DVT, Pulmonary embolus, coronary disease, stents etc please speak with your surgeon about specific details as to when you can resume these medications. You can resume NSAIDs on post op day 1 (eg: Motrin, Naproxen, etc). Follow up: Please call the office, , after surgery to arrange a 3 week follow up for wound check. Wound Care: You may remove your dressing on the first day after surgery. You may leave open to air. Please do not remove the steri strips underneath. they will fall off on their own in one week. IT IS NORMAL FOR THE WOUND TO OOZE OR BE BLOODY FOR A FEW DAYS AFTER SURGERY. IF THIS HAPPENS JUST PLACE NEW DRESSING OVER IT TO AVOID STAINING CLOTHES. You may shower on post op day # 1 We ask that you do not let the water soak the wound. If it does get wet, just towel dry lightly. Please do not scrub your incision or place any type of chemical/ointment on the wound. No tub baths, pools or jacuzzis for one month. If you have any leaking or redness from your wound, or fevers, please call office
[2023-05-20] MEDS: fentaNYL citrate/PF 100 MCG/2 ML VIAL 25 MCG IVPUSH ×2 (09:00→09:07)
[2023-05-20] MEDS: HYDROmorphone HCl 0.5 MG/0.5 ML SYRINGE 0.25 MG IVPUSH (09:16)
[2023-05-20] MEDS: oxyCODONE HCl Immed Release 5 MG TABLET PO (09:16)
--- NOTE | 2023-05-20 09:58 | HO.POSTANES ---
Post Anesthesia Evaluation Post Anesthesia Evaluation Date of Service: 05/20/23 Vital Signs: Vital Signs Temp Pulse Resp BP Pulse Ox O2 Del Method O2 Flow Rate 05/20/23 09:43 97.5 F 63 18 112/54 L 96 Room Air 05/20/23 09:25 61 17 127/54 L 100 Room Air 05/20/23 09:16 20 05/20/23 09:15 68 20 130/61 100 Room Air 05/20/23 09:10 69 17 120/60 100 Room Air 05/20/23 09:07 17 05/20/23 09:05 71 18 121/65 100 Room Air 05/20/23 09:00 71 18 124/53 L 99 Room Air 05/20/23 09:00 18 05/20/23 08:55 97.3 F 78 20 133/64 100 Simple Mask 6 05/20/23 06:45 97.9 F 65 18 143/64 H 99 Room Air Anesthesia: General Endotracheal-GETA Mental Status: Awake Pain Control: Satisfactory Nausea/Vomiting: None Hydration: Adequate Anesthesia-Related Issues: No Anes. Related Issues
== END 2023-05-20 10:31 | disposition home or self-care (01) ==
PROVIDERS: Nurse Practitioner; PCP Family Medicine; Visit Provider Neurological Surgery
PROC: (CPT 63047; principal; 2023-05-20 07:30)
DX: M48.061 Spinal stenosis, lumbar region without neurogenic claudication (principal); M51.26 Other intervertebral disc displacement, lumbar region; M51.16 Intervertebral disc disorders with radiculopathy, lumbar region; M87.852 Other osteonecrosis, left femur; I10 Essential (primary) hypertension; F17.210 Nicotine dependence, cigarettes, uncomplicated; F12.90 Cannabis use, unspecified, uncomplicated; Z79.899 Other long term (current) drug therapy
CPT/HCPCS: 63047; 36415; 80048; 85027; 93005; J0131; J0690; J1100; J1170; J1885; J2250; J2405; J2704; J3010

== ENCOUNTER → 2023-05-20 06:03 | Outpatient (BNV) | payer MEDICARE, MEDICAID, SELFPAY | PROVIDERS: PCP Family Medicine; Visit Provider Neurological Surgery | DX: M48.061 Spinal stenosis, lumbar region without neurogenic claudication (principal) | CPT/HCPCS: 63047; 99499 ==

== ENCOUNTER 2023-06-10 10:26 | Outpatient (AMB) | payer MEDICARE, MEDICAID, SELFPAY ==
--- NOTE | 2023-06-10 11:00 | A.SPINEOV_ITS ---
Intake Intake Visit Reasons: 1st post op Allergies No Known Allergies Allergy (Verified 04/28/23 08:56) Assessment & Plan Assessment & Plan (1) S/P lumbar laminectomy: Code(s): Z98.890 - Other specified postprocedural states Plan Procedure: left L4-5 Laminotomy, Partial facetectomy and foraminotomy Naomy comes in today for her 1st postoperative visit. She reports she is satisfied with the surgery but does continue to have some low back tenderness with intermittent tenderness in her lateral thighs. The patient reports she is up walking around and completing the majority of her ADLs, including cleaning, cooking, and laundry. She reported that she has completed her first prescription of oxycodone and did not request a refill until her appointment because she thought she needed to wait to see us in person. She was provided with a refill for a little less than half of her original post operative quantity, and informed that will be her final refill. She did begin discussion regarding posterior neck pain with some pains in her shoulders. She is concerned that she may have pathology in this area, and was previously encouraged by her primary care provider to obtain x-rays of her neck she does have some difficulty getting to our office if she lives in [place] and does not have a vehicle. Therefore she relies on rides to get here. She was informed that we will see her back in 6 weeks for a new consult/new complaint and can also discuss her continued healing progress from her most recent operation. No neurological deficits. Patient is able to ambulate well, rises from a seated position without difficulty. Incision sites are closed, well healing, with no signs of drainage. We will follow-up with the patient in 6 weeks to evaluate her for cervicalgia. She was advised to remain out of work for the full 6 weeks postoperatively until July 01 2023. Da Cooley MD,PhD [facility] Medications: Changed From oxycodone Partial Fill upon patient request. 5 mg PO Q4H PRN 30 tabs 0RF pain To oxycodone Partial Fill upon patient request. 5 mg PO Q8H PRN 14 tabs 0RF pain Coding Level of Care Code Global (18267) Diagnoses S/P lumbar laminectomy Z98.890
== END 2023-06-10 11:06 | disposition home or self-care (01) ==
PROVIDERS: PCP Family Medicine; Visit Provider Physician Assistant
DX: Z98.890 Other specified postprocedural states (principal)
CPT/HCPCS: 99024

== ENCOUNTER → 2023-06-10 10:26 | Outpatient (BNVA) | payer MEDICARE, MEDICAID, SELFPAY | PROVIDERS: PCP Family Medicine; Visit Provider Physician Assistant | DX: Z48.89 Encounter for other specified surgical aftercare (principal); Z98.890 Other specified postprocedural states | CPT/HCPCS: 99212 ==

== ENCOUNTER 2023-06-12 11:42 | Outpatient (AMB) | payer MEDICARE, MEDICAID, SELFPAY ==
--- NOTE | 2023-06-12 11:46 | MHC.PC.OV ---
Vital Signs 06/12/23 11:47 Height 5 ft 6 in Weight 126 lb 2 oz BMI 20.4 BP 114/66 Blood Pressure Location Rt brachial Position Sitting Respiration 13 Pulse 77 Pulse Source Pulse Oximeter Temp 97.5 F Temp Source Temporal Artery Scan Pulse Oximetry (%) 99 Oxygen Delivery Method Room Air Intake Visit Reasons: Post-op Follow Up From Spinal Surgery Intake Note: Patient states that she hasnt had much of a appetite for a while. Hand Packer/Packager Required: No Accompanied by: Self / Same As Patient Allergies No Known Allergies Allergy (Verified 06/12/23 12:26) Medication List - Last Reconciled 06/12/23 by Carlie Cool CNP lisinopril 20 mg PO DAILY 90 days oxycodone 5 mg PO Q8H PRN Tobacco use date assessed: 04/22/23 Dental Screening Dental Screen Date: 06/12/23 Did you have a dental visit in the last 12 months?: Yes Did you have a dental problem in the last 6 months where you did not have access to dental care?: No Was dental information given to patient?: Patient has dentist HPI HPI Comments History of Present Illness Details 62-year-old female presents for a follow-up visit She s/p L4-L5 laminectomy. She had the procedure done on 05/20/2023. She had a follow-up visit with Neuro Spine 2 days ago She reports soreness to her hips and back, and occasional numbness to her lower extremities, which is expected according to Neuro Spine. She notes she has not been required to take oxycodone 3 times daily, she takes the medication for severe pain. She has a follow-up appointment with Neuro Spine in early July [facility] Medical History EtOH dependence Heart murmur High blood pressure Surgical History History of lumbar laminectomy Hx of bilateral cataract extraction Hx of tonsillectomy History of ankle surgery History of eye surgery Family History Mother Breast cancer Sister Breast cancer Father Diabetes Other Substance use disorder Social History Household Members Other:: adult son Housing: Apartment Are you a primary healthcare administration internship to a significant other at home: No Do you presently have visiting nurse or other home services: No Alcohol intake: never Comment: all counts correct Patient Tobacco Use Status: Current everyday Tobacco user Tobacco use type: Cigarette Cigarette Packs Per Day: 0.7 Cigarettes Per Day: 8 Years Smoked: 10 e-Cigarette/Vaping Use: Never Used Second Hand Smoke Exposure: Yes Substance Use Type: Marijuana service: No Current occupational status: disabled 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 Royal George, Niki Huff, Donald Geller and colleagues, with an educational jeison from [employer] Review of Systems Const Details: Const Denies chills, Denies fatigue, Denies fever(s), Denies headache(s) and Denies weakness ENT Denies dizziness and Denies headache(s) Card Denies chest pain, Denies lightheadedness, Denies dyspnea and Denies other (Palpitations) Resp Denies cough, Denies dyspnea, Denies wheezing and Denies other ( shortness of breath) GI Denies abdominal pain, Denies melena, Denies hematochezia, Denies change in bowel habits, Denies dyspepsia and Denies nausea Denies hematuria and Denies dysuria Musc Reports as per HPI Skin/Breast Denies rash, Denies unusual bruising and Denies wounds Neuro Denies abnormal gait, Denies dizziness, Denies headache(s), Denies memory loss, Denies numbness, Denies Sensory deficit (Neuro), Denies tingling and Denies weakness Psych Denies anxiety, Denies depression, Denies memory loss Endo Denies cold intolerance, Denies fatigue, Denies heat intolerance, Denies polydipsia and Denies polyuria Aller/Immun Denies wheezing Physical exam (Primary Care) Vital Signs: Last Vital Signs Temp 97.5 F 06/12/23 11:47 Pulse 77 06/12/23 11:47 Resp 13 06/12/23 11:47 BP 114/66 06/12/23 11:47 Pulse Ox 99 06/12/23 11:47 Oxygen Delivery Method Room Air 06/12/23 11:47 BMI result Body Mass Index 20.4 Tobacco/Smoking Status: Tobacco use Status Tobacco use date assessed 04/22/23 06/12/23 11:56 Patient Tobacco Use Status Current everyday Tobacco 06/12/23 11:56 Tobacco use type Cigarette 06/12/23 11:56 e-Cigarette/Vaping Use Never Used 06/12/23 11:56 Thrive Assessment: Date of Thrive Assessment Date Thrive assessed 07/24/22 06/12/23 11:56 Const Other: General: no acute distress and well developed Nutritional Appearance: well nourished Orientation/consciousness: patient oriented x3 HENMT Head: Yes normocephalic and Yes atraumatic Eyes General: appearance normal, both eyes and all related structures Pupils: Equal, round and reactive pupils present EOM: EOMs intact bilaterally Resp Effort & Inspection: normal respiratory effort Auscultation: clear to auscultation bilaterally Cardio Rate: regular rate Rhythm: regular rhythm Heart sounds: S1 normal heart sound present, S2 normal heart sound present, no gallops, no murmurs and no rubs GI Palpation (GI): No Abdominal aortic bruit present, Soft to palpation, nontender, No hepatosplenomegaly present and No Rebound tenderness present Auscultation: normal bowel sounds General: Yes no CVA tenderness Back/Spine/Pelvis Back: no CVA tenderness Cervical Spine: cervical ROM normal and No Cervical spine tenderness Thoracic/Lumbar Spine: thoraco-lumbar ROM normal, No pain with thoraco-lumbar ROM, No thoracic spinal tenderness and No lumbar spinal tenderness Extrem General: Yes normal to inspection, No edema and No calf tenderness Skin General: warm and dry. Normal skin color. Normal skin turgor Neuro General: patient oriented x3, gait normal and no focal neuro deficit Cranial nerves: Yes Equal, round and reactive pupils present Cognition (Neuro): normal cognition Gait exam (Neuro): Normal gait present Sensory Exam: No Sensory deficit (Neuro) Psych Appearance: grossly normal Affect: normal affect Attitude: cooperative Thought process: Normal thought process present Assessment and Plan Assessment & Plan (1) S/P lumbar laminectomy: Code(s): Z98.890 - Other specified postprocedural states Plan: Reports soreness to her hips and back, and occasional numbness to her lower extremities Continue current treatment regimen Follow-up with neuro spine as planned Follow-up with PCP in August for an extended physical exam Return sooner with symptoms or concerns Verbalized understanding and agreed with treatment plan Coding Level of Care Code Est Pt Level 3 (23854) Diagnoses S/P lumbar laminectomy Z98.890
[2023-06-12 11:47] VITALS: BP 114/66; PULSE 77; RESP 13; TEMP 36.4; O2SAT 99; BMI 20.4
== END 2023-06-12 12:39 | disposition home or self-care (01) ==
PROVIDERS: PCP Family Medicine; Visit Provider Nurse Practitioner Family
DX: Z98.890 Other specified postprocedural states (principal)
CPT/HCPCS: 99213

== ENCOUNTER 2023-07-23 09:03 | Outpatient (AMB) | payer MEDICARE, MEDICAID, SELFPAY ==
--- NOTE | 2023-07-23 09:16 | A.SPINEOV_ITS ---
Intake Intake Visit Reasons: neck pain Intake Note: Ms. Cervantes is here today c/o neck pain. Lead Ramp Service Man Required: No Allergies No Known Allergies Allergy (Verified 06/12/23 12:26) Assessment & Plan Assessment & Plan (1) S/P lumbar laminectomy: Code(s): Z98.890 - Other specified postprocedural states Plan Procedure: left L4-5 Laminotomy, Partial facetectomy and foraminotomy Naomy is a pleasant 62-year-old female who comes in today for continued follow- up postoperatively. She reports that she has some continued cramping like pain in her posterior buttocks into her posterior thighs. 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 She is still performing all of her ADLs well and does not feel she has any strength deficits. In regards to her neck pain, she reports no radicular symptoms down her arms, and states that is not as bad as it previously was when we had discussed it. She has not sure she would like to pursue any interventions regarding her neck at this time. No neurological deficits. Patient is able to ambulate well, rises from a seated position without difficulty. Posterior incision sites is closed, well healed, with no signs of drainage. We will follow-up with the patient again in 8 weeks to ensure that her posterior thigh / buttocks symptoms are resolving. She was provided with a short supply of methocarbamol to take before bed to help alleviate some of her spasming. She was advised that this medication can be sedating and she will not be able to drive or operate machinery while taking this medication. Da Cooley MD,PhD [facility] Medications: New methocarbamol 750 mg PO BEDTIME 14 tabs 0RF muscle spasms Coding Level of Care Code Global (13095) Diagnoses S/P lumbar laminectomy Z98.890
== END 2023-07-23 09:33 | disposition home or self-care (01) ==
PROVIDERS: PCP Family Medicine; Visit Provider Physician Assistant
DX: Z98.890 Other specified postprocedural states (principal)
CPT/HCPCS: 99024

== ENCOUNTER → 2023-07-23 09:03 | Outpatient (BNVA) | payer MEDICARE, MEDICAID, SELFPAY | PROVIDERS: PCP Family Medicine; Visit Provider Physician Assistant | DX: Z98.890 Other specified postprocedural states (principal) | CPT/HCPCS: 99212 ==

== ENCOUNTER 2023-08-18 12:32 | Outpatient (REF) | payer MEDICARE, SELFPAY | END 2023-08-18 12:33 | disposition home or self-care (01) | LOC: HO.LNP 12:32 | PROVIDERS: PCP Family Medicine; Visit Provider Obstetrics & Gynecology | DX: N90.89 Other specified noninflammatory disorders of vulva and perineum (principal) | CPT/HCPCS: 56605; 56606; 88305; 88312 ==

== ENCOUNTER 2023-08-18 12:32 | Outpatient (AMB) | payer MEDICARE, SELFPAY ==
--- NOTE | 2023-08-18 12:34 | A.OFFVIS_ITS ---
Intake Vital Signs 08/18/23 12:35 Height 5 ft 6 in Weight 126 lb BMI 20.3 BP 116/68 Intake Visit Reasons: Vulvar Biopsy Benefits Processor Required: No Information Interpreted: non-clinical & clinical Geospatial Specialist: Geospatial Specialist Present Accompanied by: Self / Same As Patient Allergies No Known Allergies Allergy (Verified 08/18/23 12:36) Is last menstrual period known: Yes (10 years ago) Post menopausal: Yes Patient : No Do you need a note to return to daycare/school/sports/work: No HPI HPI Comments History of Present Illness Details Presenting for vulvar biopsies PFSH Medical History EtOH dependence Heart murmur High blood pressure Surgical History History of lumbar laminectomy Hx of bilateral cataract extraction Hx of tonsillectomy History of ankle surgery History of eye surgery Family History Mother Breast cancer Sister Breast cancer Father Diabetes Other Substance use disorder Social History Household Members Other:: adult son Housing: Apartment Are you a primary career based intervention coordinator to a significant other at home: No Do you presently have visiting nurse or other home services: No Alcohol intake: never Comment: all counts correct Patient Tobacco Use Status: Current everyday Tobacco user Tobacco use type: Cigarette Cigarette Packs Per Day: 0.7 Cigarettes Per Day: 8 Years Smoked: 10 e-Cigarette/Vaping Use: Never Used Second Hand Smoke Exposure: Yes Substance Use Type: Marijuana Patient : No service: No Current occupational status: disabled 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 Current occupational exposures/hazards: No Sexual orientation: Straight/Heterosexual Gender identity: Female Cognitive needs: No Hearing needs: No Vision needs: No Physical Exam Vital Signs: Last Vital Signs BP 116/68 08/18/23 12:35 BMI result Body Mass Index 20.3 Office Procedures [address] INSTRUCTOR Biopsy Before the procedure was started d/w patient the procedure, alternatives ( do nothing, medical rx), & all the risks associated with the procedure ( bleeding , infection, vulvar scarring, painful intercourse, injury to vessels, possible need for transfusion with all its risks) then patient signed the consent. Preop dx: Labia minora lesions and perirectal lesion Op: Left vulvar lesion excision Post op: Same Anesthesia: Lidocaine 1% 5 cc used Procedure: Using betadine the area was scrubbed and draped in the usual manner. 3 cc of lidocaine was used for anesthesia at the left vulvar lesion area ; using scissors and pickup the perirectal r lesion was excised, Vicryl was used to approximate the edges. Then attention was turned to the left multiple labia minor lesions and biopsy was taken from 1 of them using a pickup and punch biopsy forceps preop Pressure was used for hemostasis. The patient tolerated the procedure well. Discharge Instructions: The patient was instructed to schedule an appointment in 2 weeks for follow-up and to call if temp>100.4, area of the biopsy redness or pain, nausea/vomiting. This note was generated with a voice recognition program. Some errors may have been overlooked during the review of this note. Sometimes these errors may affect the content or meaning of a given sentence. 20868-Udzwji of Vulva/Perineum 92579-Inxazf of Vulva/Perineum, additional site Procedure code (CPT) selection complete Assessment & Plan Assessment & Plan (1) Vulvar lesion: Comment: Left labia minora 2 lesions, left perirectal lesion Code(s): N90.89 - Other specified noninflammatory disorders of vulva and perineum Plan: Vulvar biopsies taken, see procedure note Orders: Orders AMB DRIVER EDUCATION [address] INSTRUCTOR Biopsy Today N90.89 - Other specified noninflammatory disorders of vulva and perineum Coding Level of Care Code Procedure Only Diagnoses Vulvar lesion N90.89 CPT Codes [address] INSTRUCTOR Biopsy - CPT: 40552-Odpazt of Vulva/Perineum ([id number]) DRIVER [address]UC[address] INSTRUCTOR Biopsy - CPT: 40126-Vxsldr of Vulva/Perineum, additional site ([id number])
[2023-08-18 12:35] VITALS: BP 116/68; BMI 20.3
== END 2023-08-18 13:00 | disposition home or self-care (01) ==
LOC: HO.HWS 12:33
PROVIDERS: PCP Family Medicine; Visit Provider Obstetrics & Gynecology
DX: N90.89 Other specified noninflammatory disorders of vulva and perineum (principal)
CPT/HCPCS: 56605; 56606

== ENCOUNTER 2023-09-18 14:01 | Outpatient (AMB) | payer MEDICARE, SELFPAY ==
--- NOTE | 2023-09-18 14:54 | A.SPINEOV_ITS ---
Intake Intake Visit Reasons: 8 wk follow up Intake Note: Ms. 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 Her left leg pain is gone. She still gets a little trouble in her hip and occasionally some stiffness in the back of her buttocks but otherwise she is doing well. She is back to work, she has no restrictions and can carry on with life is usual from surgical standpoint. She understands that she does have a degenerative disc in her back at L4-5 and should act up or give her any further problems, we would be happy to see her back down the road. We discussed activity guidelines, restrictions and expectations after lumbar decompression. Total amount of time spent in this visit was 20 minutes in discussion of symptoms, lumbar imaging results and subsequent plan of care Patricio Cooley MD,PhD [facility] Coding Level of Care Code Est Pt Level 3 (34772) Diagnoses S/P lumbar laminectomy Z98.890
== END 2023-09-18 16:02 | disposition home or self-care (01) ==
PROVIDERS: PCP Family Medicine; Visit Provider Physician Assistant
DX: Z98.890 Other specified postprocedural states (principal)
CPT/HCPCS: 99213

== ENCOUNTER → 2023-09-18 14:01 | Outpatient (BNVA) | payer MEDICARE, SELFPAY | PROVIDERS: PCP Family Medicine; Visit Provider Physician Assistant | DX: Z98.890 Other specified postprocedural states (principal) | CPT/HCPCS: 99212 ==

== ENCOUNTER 2023-12-02 08:11 | Outpatient (AMB) | payer MEDICARE, SELFPAY ==
--- NOTE | 2023-12-02 08:15 | MHC.OFFVIS ---
Vital Signs 12/02/23 08:16 Height 5 ft 6 in Weight 130 lb BMI 21.0 BP 122/78 Blood Pressure Location Lt brachial Position Sitting Intake Visit Reasons: biopsy results Allergies No Known Allergies Allergy (Verified 12/02/23 08:17) HPI Comments Details: Presenting post vulvar biopsy, doing well with no complaints. The pathology showed the following: A. Vulva, left labia minora, biopsy: Early evolving condyloma acuminatum. B. Vulva, left perirectal, biopsy: Condyloma acuminatum [facility] Medical History EtOH dependence Heart murmur High blood pressure Surgical History History of lumbar laminectomy Hx of bilateral cataract extraction Hx of tonsillectomy History of ankle surgery History of eye surgery Family History Mother Breast cancer Sister Breast cancer Father Diabetes Other Substance use disorder Social History Household Members Other:: adult son Housing: Apartment Are you a primary rn care transition to a significant other at home: No Do you presently have visiting nurse or other home services: No Alcohol intake: never Comment: all counts correct Patient Tobacco Use Status: Current everyday Tobacco user Tobacco use type: Cigarette Cigarette Packs Per Day: 0.7 Cigarettes Per Day: 8 Years Smoked: 10 e-Cigarette/Vaping Use: Never Used Second Hand Smoke Exposure: Yes Substance Use Type: Marijuana service: No Current occupational status: disabled 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 Current occupational exposures/hazards: No Sexual orientation: Straight/Heterosexual Gender identity: Female Cognitive needs: No Hearing needs: No Vision needs: No Review of Systems Const All systems reviewed & are unremarkable except as noted in HPI and below Reports as per HPI and Reports no additional complaints GI Reports no additional complaints Reports no additional complaints Physical Exam Vital Signs: Last Vital Signs BP 122/78 12/02/23 08:16 BMI result Body Mass Index 21.0 Assessment & Plan Assessment & Plan (1) Condyloma acuminata: Code(s): A63.0 - Anogenital (venereal) warts Category: Medical Plan: Discussed with the patient the pathology results when condyloma acuminata with no evidence of JIM, since both lesions were completely excised, instructions given the patient to call in case of recurrence of the lesion, hard areas or nonhealing ulcer. All questions answered, the patient verbalized understanding Coding Level of Care Code Est Pt Level 3 (82754) Diagnoses Condyloma acuminata A63.0
[2023-12-02 08:16] VITALS: BP 122/78; BMI 21.0
== END 2023-12-02 08:26 | disposition home or self-care (01) ==
PROVIDERS: PCP Family Medicine; Visit Provider Obstetrics & Gynecology
DX: A63.0 Anogenital (venereal) warts (principal)
CPT/HCPCS: 99213

== ENCOUNTER → 2023-12-02 08:11 | Outpatient (BNVA) | payer MEDICARE, SELFPAY | PROVIDERS: PCP Family Medicine; Visit Provider Obstetrics & Gynecology | DX: A63.0 Anogenital (venereal) warts (principal); Z98.890 Other specified postprocedural states | CPT/HCPCS: 99212 ==

== ENCOUNTER → 2023-12-30 13:04 | Outpatient (REF) | payer MEDICARE, SELFPAY ==
--- NOTE | 2023-12-30 13:07 | CA_ITS ---
Transthoracic Echocardiogram Patient (Last, First, Middle): Naomy Cervantes, Gender: Female Date of : 1960 Age: 63 Procedure Date: 12/30/2023 Procedure Type: Transthoracic Echocardiogram Location: OP Height: 167.64 cm Weight: 58.51 kg BSA: 1.66 m2 Heart Rate: 69 bpm BP: 130 / 76 mmHg Entry Level Electrical Engineer: SHIRA Referring MD: Danyell Pang SECURITY DISPATCHER-C Side Laster Staple: Robert Shaffer MD Symptoms: I77.810 - Thoracic aortic ectasia Study Quality: Adequate ECG Rhythm: Sinus Conclusions: - 1. Normal LV ejection fraction of 60 65% with impaired relaxation filling pattern 2. At least mildly dilated left atrium 3. Calcific mitral and aortic valve changes noted with trace aortic regurgitation early mild aortic stenosis 4. Upper limits of normal ascending aortic size 5. No gross pericardial effusion Findings Left Ventricle Normal left ventricular size, thickness, and systolic function. The visually estimated ejection fraction is between 60-65%. Spectral Doppler is indicative of an impaired relaxation filling pattern. E/E prime ratio is between 8 and 15 consistent with indeterminate filling pressures. Right Ventricle Normal right ventricular cavity size and systolic function. Atria The left atrium is mildly dilated. There is no evidence of interatrial shunt. The right atrium is normal in size. Aortic Valve There is mild calcification of the aortic valve. The peak aortic velocity is 1.75 m/s with a calculated peak gradient of 12 mmHg. The mean gradient is 6 mmHg. There is trace (trivial) aortic valve regurgitation. Mitral Valve There is mild anterior and posterior mitral leaflet thickening. There is mild mitral annular calcification. There is trace mitral valve regurgitation. There is no mitral valve stenosis. calcific changes noted in the chordal structures as well Pulmonic Valve The pulmonic valve is likely normal. There is trace pulmonic valve regurgitation. Tricuspid Valve Likely normal tricuspid valve structure and function. Tricuspid regurgitation envelope is inadequate for calculation of right ventricular systolic pressure. Normal right atrial pressure. Great Vessels The pulmonary artery was not well visualized. There is mild dilatation of the ascending aorta measuring 3.60 cm. Small plaque is seen in the sino tubular ridge. Venous The inferior vena cava is normal in size and collapses greater than 50% with inspiration. Pericardium/Pleural There is no evidence of pericardial effusion. Prior Study Comparison No significant change compared to prior study dated: 02/01/2022. Measurements 2D Linear Measurements IVSd: 0.95 0.6-0.9/0.6-1.0 cm LVIDd: 5.06 3.9-5.3/4.2-5.9 cm LVIDd Index: 3.05 2.4-3.2/2.2-3.1 cm/m2 LVIDs: 3.09 2.0-3.6 cm LVPWd: 0.82 0.7-1.1 cm LA Diam: 3.50 2.7-3.8/3.0-4.0 cm LAIDs Index: 2.11 1.5-2.3 cm/m2 LV Mass: 195.17 67-162/88-224 g LV Mass Index: 117.57 43-95/49-115 g/m2 LVOT Diam: 2.20 3.0+(-)1.3 cm 2D Systolic Function EF 4C: 66.40 >55% EF 2C: 65.90 >55% EF BiP: 66.10 >55% Mitral Valve MV Pk E: 0.55 MV PK A: 0.78 MV Decel Time: 304.00 E/A: 0.70 E'Lateral: 4.46 E'Medial: 4.24 E/E' Med: 13.00 E/E' Lat: 12.40 PHT: 89.00 MVA PHT: 2.47 Decel Tyrrell: 1.82 Aortic Valve AoV Pk Tiago: 1.75 AoV Mn Tiago: 1.08 AoV VTI: 0.38 AoV Pk Grad: 12.00 Aov Mn Grad: 6.00 ERVIN Cont.VTI: 2.33 LVOT LVOT Pk Tiago: 1.10 LVOT Mn Tiago: 0.63 LVOT VTI: 0.23 LVOT Pk Grad: 5.00 LVOT Mn Grad: 2.00 LVOT Diam: 2.20 LVOT Area: 3.80 Diastolic Function MV Pk E: 0.55 MV Pk A: 0.78 E/A: 0.70 E'Medial: 4.24 E/E' Med: 13.00 E' Laterial: 4.46 E/E' Lat: 12.40 Right Ventricle TAPSE (mm): 23.00 TVS' Tiago: 15.30 Tricuspid Valve RA Press: 3.00 Great Vessels Aorta Sinus of Valsalva: 3.00 2.0-3.[address] Ridge: 2.17 1.7-3.4 cm Ao Asc: 3.60 2.1-3.4 cm Updated in Other Vendor System with Status of Final Robert Shaffer MD electronically signed on 12/30/2023 4:36:34 PM with status of Final
== END ==
LOC: HO.CARD 13:04
PROVIDERS: PCP Family Medicine; Visit Provider Nurse Practitioner Family
DX: I77.810 Thoracic aortic ectasia (principal)
CPT/HCPCS: 93306

== ENCOUNTER → 2023-12-30 13:07 | Outpatient (BNV) | payer MEDICARE, SELFPAY | PROVIDERS: PCP Family Medicine; Visit Provider Internal Medicine Cardiovascular Disease | DX: I35.2 Nonrheumatic aortic (valve) stenosis with insufficiency (principal); I34.81 Nonrheumatic mitral (valve) annulus calcification | CPT/HCPCS: 93306 ==

== ENCOUNTER → 2024-02-05 10:30 | Outpatient (BNV) | payer MEDICARE, SELFPAY | PROVIDERS: PCP Family Medicine; Visit Provider Internal Medicine | DX: Z12.31 Encounter for screening mammogram for malignant neoplasm of breast (principal) | CPT/HCPCS: 77063; 77067 ==

== ENCOUNTER 2024-02-05 10:37 | Outpatient (REF) | payer MEDICARE, SELFPAY ==
--- NOTE | ~2024-02-05 | MM_ITS ---
EXAMINATION: MM SCREENING DIGITAL BREAST TOMOSYNTHESIS, BILATERAL CLINICAL INFORMATION: Screening. Asymptomatic. COMPARISON: Mammography: Comparison is made with available prior examinations. TECHNIQUE: Digital breast tomosynthesis is performed in both the craniocaudal and mediolateral oblique views along with computer-aided detection (CAD). Synthesized 2D images are generated from the tomosynthesis. FINDINGS: The breasts are heterogeneously dense, which may obscure small masses (ACR BI-RADS breast composition Category c). Right marker clip. There are no significant masses, abnormal calcifications, or other abnormalities. MM/MM tomosynthesis screening BI IMPRESSION: No mammographic evidence of malignancy. ASSESSMENT: BI-RADS BI-RADS 2 - Benign Findings RECOMMENDATION: Routine annual mammography screening. 1 year F/U This examination should not preclude the clinical evaluation of a suspicious palpable abnormality. This patient's information was entered into a reminder system with a target due date for their next mammogram. Electronically signed by: Ivy Gould DO 03/04/2024 06:56 PM EDT
== END 2024-02-05 10:38 | disposition home or self-care (01) ==
LOC: HO.MAMMO 10:37
PROVIDERS: PCP Family Medicine; Visit Provider Family Medicine
DX: Z12.31 Encounter for screening mammogram for malignant neoplasm of breast (principal)
CPT/HCPCS: 77063; 77067

== ENCOUNTER 2024-02-10 14:44 | Outpatient (AMB) | payer MEDICARE, SELFPAY ==
[2024-02-10 14:46] VITALS: BP 96/60; PULSE 70; RESP 16; TEMP 36.1; O2SAT 100; BMI 21.7
--- NOTE | 2024-02-10 14:46 | A.OFFPC_ITS ---
Vital Signs 02/10/24 14:46 02/10/24 14:53 Height 5 ft 4 in Weight 126 lb 6 oz BMI 21.7 BP 96/60 124/58 L Blood Pressure Location Rt brachial Rt brachial Position Sitting Sitting Respiration 16 Pulse 70 Pulse Source Pulse Oximeter Temp 96.9 F Temp Source Tympanic Pulse Oximetry (%) 100 Oxygen Delivery Method Room Air Intake Visit Reasons: screening reschd from 01/20 Intake Note: follow up on HTN Allergies No Known Allergies Allergy (Verified 02/10/24 14:49) Tobacco use date assessed: 04/22/23 Dental Screening Dental Screen Date: 06/12/23 HPI screening reschd from 01/20 HPI Details 63 y/o female presents to f/u hypertensi on, chronic conditions. Hx of mild aortic diltation. Recent echocardiogram had no change. Followed by Dr. Espana for s/p lumbar laminectomy. Blood pressure today 124/58, 70p. She is on lisinopril 20mg daily. She notes mammogram last week. Has complaints of ongoing low back pain. HPI Comments History of Present Illness Details Documentation assistance for Ramesh Ventura MD, was provided by Dillon Sharma, Visitor Information Assistant on 02/10/2024 at 2:57 PM EST. I, Dr. Ventura, have read, observed, and verified documentation. [facility] Medical History EtOH dependence Heart murmur High blood pressure Surgical History History of lumbar laminectomy Hx of bilateral cataract extraction Hx of tonsillectomy History of ankle surgery History of eye surgery Family History Mother Breast cancer Sister Breast cancer Father Diabetes Other Substance use disorder Social History Household Members Other:: adult son Housing: Apartment Are you a primary child care lead teacher to a significant other at home: No Do you presently have visiting nurse or other home services: No Alcohol intake: never Comment: all counts correct Patient Tobacco Use Status: Current everyday Tobacco user Tobacco use type: Cigarette Cigarette Packs Per Day: 0.7 Cigarettes Per Day: 8 Years Smoked: 10 e-Cigarette/Vaping Use: Never Used Second Hand Smoke Exposure: Yes Substance Use Type: Marijuana service: No Current occupational status: disabled 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 Royal George, Niki Huff, Donald Geller and colleagues, with an educational jeison from [employer]. Review of Systems Const Denies chills, Denies fatigue, Denies fever(s), Denies headache(s) and Denies weakness ENT Denies dizziness and Denies headache(s) Card Denies dyspnea Resp Denies cough, Denies dyspnea, Denies wheezing and Denies other (shortness of breath) Musc Denies numbness and Denies tingling Neuro Denies dizziness, Denies headache(s), Denies numbness, Denies tingling and Denies weakness Psych Denies anxiety and Denies depression Endo Denies fatigue Aller/Immun Denies wheezing Physical exam (Primary Care) Vital Signs: Last Vital Signs Temp 96.9 F 02/10/24 14:46 Pulse 70 02/10/24 14:46 Resp 16 02/10/24 14:46 BP 124/58 L 02/10/24 14:53 Pulse Ox 100 02/10/24 14:46 Oxygen Delivery Method Room Air 02/10/24 14:46 BMI result Body Mass Index 21.7 Tobacco/Smoking Status: Tobacco use Status Tobacco use date assessed 04/22/23 02/10/24 14:50 Patient Tobacco Use Status Current everyday Tobacco 02/10/24 14:50 Tobacco use type Cigarette 02/10/24 14:50 e-Cigarette/Vaping Use Never Used 02/10/24 14:50 Thrive Assessment: Date of Thrive Assessment Date Thrive assessed 07/24/22 02/10/24 14:50 Const General: well developed; No acute distress Nutritional Appearance: well nourished Orientation/consciousness: patient oriented x3 HENMT Head: Yes normocephalic and Yes atraumatic Eyes General: appearance normal, both eyes and all related structures Pupils: Equal, round and reactive pupils present EOM: EOMs intact bilaterally Resp Effort & Inspection: normal respiratory effort Auscultation: clear to auscultation bilaterally Cardio Rate: regular rate Rhythm: regular rhythm Heart sounds: S1 normal heart sound present, S2 normal heart sound present, no gallops, Murmur heart sound present (mild) and no rubs Neuro General: patient oriented x3 and gait normal Cranial nerves: Yes Equal, round and reactive pupils present Psych Affect: normal affect Assessment and Plan Assessment & Plan (1) High blood pressure: Code(s): I10 - Essential (primary) hypertension Plan: Blood?pressure?is?controlled.??Goal?is?less?than?130/80s;?patient?has?mild/borde rline?aortic?dilatation Continue?lisinopril?as?prescribed (2) Aortic dilatation: Code(s): I77.819 - Aortic ectasia, unspecified site Plan: Patient?is?followed?every?2?years?for ascending?aorta?dilatation No?change?on?echocardiogram?from?December. Cardiology?note?from?April?encouraged?follow-up?annually. Follow-up?with?Cardiology?in?April (3) S/P lumbar laminectomy: Code(s): Z98.890 - Other specified postprocedural states Plan: Patient?had?significant?improvement?after?L4-5?laminectomy She?does?note?however?some?left?low?back?and?lateral?hip?pain?which?radiates?magnolia n?lateral?thigh This?worsens?with?long?walks - patient?walks?sometimes?over?3?mi?in?a?day Encouraged?her?to?scale?this?back?a?little?bit - walk?less?than?causes?discomfort May?be?overuse?disorder?and?some?tendinitis?or?low?back?muscle?strain Patient?is?concerned?about?hip?arthritis?but?has?no?ruben in?pain?or?pain?in?hip?joint?region Start?physical?therapy If?not?improving?would?refer?her?back?to?Dr.?Pennings grubbs (4) Breast cancer screening by mammogram: Code(s): Z12.31 - Encounter for screening mammogram for malignant neoplasm of breast Plan: Recent?mammogram?but?report?is?not?available?yet.??We?can?follow- up?on?this?at?subsequent?visit (5) Back pain: Code(s): M54.9 - Dorsalgia, unspecified Plan: As?above (6) Discomfort of left ear: Code(s): H92.02 - Otalgia, left ear Plan: Patient?has?had?longstanding?ear?discomfort?since?last?year Nasal?steroid?has?not?improve?this Exam?shows?mild?cerumen?but?no?other?abnormalities?in?left?ear Mild?serous?fluid?in?right?ear?but?she?has?no?complaints?there Referred?to?ENT Orders: Orders Complete Blood Count Auto Diff Today H92.02 - Otalgia, left ear, Z00.00 - Encounter for general adult medical examination without abnormal findings Microalbumin, Random (w Creat) Today H92.02 - Otalgia, left ear, I10 - Essential (primary) hypertension UA and rflx microscopic Today H92.02 - Otalgia, left ear, Z00.00 - Encounter for general adult medical examination without abnormal findings PT Evaluation and Treatment Today M25.552 - Pain in left hip, M54.50 - Low back pain, unspecified Comprehensive [place]. Panel Fast Today H92.02 - Otalgia, left ear, Z00.00 - Encounter for general adult medical examination without abnormal findings Lipid Panel Today H92.02 - Otalgia, left ear, Z00.00 - Encounter for general adult medical examination without abnormal findings TSH reflex Free T4 Today H92.02 - Otalgia, left ear, Z00.00 - Encounter for general adult medical examination without abnormal findings Referrals Ear/Nose/Throat Referral H92.02 - Otalgia, left ear Coding Level of Care Code Est Pt Level 4 (92140) Diagnoses High blood pressure I10 Aortic dilatation I77.819 S/P lumbar laminectomy Z98.890 Breast cancer screening by mammogram Z12.31 Back pain M54.9 Discomfort of left ear H92.02
[2024-02-10 14:53] VITALS: BP 124/58
== END 2024-02-10 15:10 | disposition home or self-care (01) ==
PROVIDERS: PCP Family Medicine; Visit Provider Family Medicine
DX: I10 Essential (primary) hypertension (principal); I77.819 Aortic ectasia, unspecified site; Z98.890 Other specified postprocedural states; Z12.31 Encounter for screening mammogram for malignant neoplasm of breast; M54.9 Dorsalgia, unspecified; H92.02 Otalgia, left ear
CPT/HCPCS: 99214

== ENCOUNTER 2024-04-22 10:00 | Outpatient (RCR) | payer MEDICARE, SELFPAY ==
[2024-04-01 09:02] VITALS: BP 140/70; PULSE 67; O2SAT 97
--- NOTE | 2024-04-05 11:50 | MHC.PT.EP ---
[facility] [place] [facility] [place] [facility] [place] [facility] [address] Soila Styles 140 [facility] [phone] F: [phone] F: [phone] F: [phone] F: [phone] Physical Therapy Plan of Care Date of Evaluation: 04/01/24 Date of Surgery: Diagnosis: M25.552 Pain in left hip, M54.50 low back pain unspecified, Left low back pain and left lateral hip pain which worsens with long walks signed by Dr. 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 Ventura 02/11/24 Assessment: Pt is a RHD 63 y/o female, referred to PT for treatment of M25.552 Pain in left hip, M54.50 low back pain unspecified, Left low back pain and left lateral hip pain which worsens with long walks signed by Dr. 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 Pt expressing onset of L LE sx which began ~November 2023 no specific injury noted. Pt exhibits (+) SLR with weakness of core/hips. Pt expressing intolerance for walking (currently does not have a vehicle and walking is primary mode of transportation. Pt expressing radiating sx along calf/lateral foot near constant in nature which have been bothering her for several months. Pt trialed in prone position with no some reduction in severity of sx expressed. Pt poor tolerance for sitting and prolonged walking with surge of sx radiating down her leg. Pt has not had any formal PT and does not participate in any exercise (aside from walking). Pt would benefit from a formal lumbar/hip stabilization program to address impairments/implement HEP/ and restore functional mobility to maximize gains. Frequency and Duration: The patient will be seen 1x-2/week x 4-6 weeks Short Term Goals: 1. Centralize L LE sx to the height of the knee. 2. Initiate self care program. 3. Pt will demonstrate strength hip abd 4+/5. 4. Pt will demonstrate strength hip ext 4+/5. Frozen Yogurt Maker Goals: 1. I HEP. 2. Pt will strengthen hip abd 5/5 B. 3. Pt will ambulate >30 minutes with sx <2/10 in L/S. 4. Pt will demonstrate good carryover of body mechanics/self care. 5. Pt will demonstrate positive centralization. Treatment Plan: Modalities to reduce pain, spasms and effusion. Manual therapy to restore motion and function. Therapeutic exercise to improve strength and flexibility. Neuromuscular re-education for posture and balance. Therapeutic activities to return to functional activities of daily living. Electronically signed by: Carin Packer,PT, DPT Please sign and return to therapist. Thank you for your referral.
== END 2024-07-13 08:23 | disposition home or self-care (01) ==
LOC: HO.PTWFD 10:00
PROVIDERS: PCP Family Medicine; Visit Provider Family Medicine
DX: M25.552 Pain in left hip (principal); M54.50 Low back pain, unspecified
CPT/HCPCS: 97110; 97162

== ENCOUNTER 2024-05-20 09:49 | Outpatient (AMB) | payer MEDICARE, SELFPAY ==
[2024-05-20 09:54] VITALS: BP 140/68; PULSE 74; BMI 21.6
--- NOTE | 2024-05-20 09:54 | MHC.OFFVIS ---
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 In the past, she was seen for mild ascending aortic dilatation. Patient herself has no cardiac issues whatsoever. No history of any coronary disease or myocardial infarction or cardiomyopathy or any other cardiac issues. She takes lisinopril for hypertension. Chronic smoker. She does not have a car and hence she walks everywhere and she states that she has got absolutely no complaints. Never has had angina. In fact she is walking today in cold weather and in snow and feels fine. [facility] Medical History EtOH dependence Heart murmur High blood pressure Surgical History History of lumbar laminectomy Hx of bilateral cataract extraction Hx of tonsillectomy History of ankle surgery History of eye surgery Family History Mother Breast cancer Sister Breast cancer Father Diabetes Other Substance use disorder Social History Household Members Other:: adult son Housing: Apartment Are you a primary mall plant caretaker to a significant other at home: No Do you presently have visiting nurse or other home services: No Alcohol intake: never Comment: all counts correct Patient Tobacco Use Status: Current everyday Tobacco user Tobacco use type: Cigarette Cigarette Packs Per Day: 0.7 Cigarettes Per Day: 8 Years Smoked: 10 e-Cigarette/Vaping Use: Never Used Second Hand Smoke Exposure: Yes Substance Use Type: Marijuana service: No Current occupational status: disabled 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 Current occupational exposures/hazards: No Sexual orientation: Straight/Heterosexual Gender identity: Female Cognitive needs: No Hearing needs: No Vision needs: No Review of Systems Const Denies chills, Denies fatigue, Denies fever(s), Denies weight gain and Denies weight loss ENT Denies dizziness Card Denies chest pain, Denies leg edema, Denies lightheadedness, Denies palpitations, Denies dyspnea on exertion, Denies orthopnea and Denies other Resp Denies cough and Denies dyspnea on exertion GI Denies hematochezia and Denies change in stool character Musc Denies abnormal gait, Denies muscle weakness, Denies numbness, Denies radiating pain into limb and Denies tingling Neuro Denies abnormal gait, Denies dizziness, Denies numbness and Denies tingling Endo Denies fatigue and Denies palpitations Physical Exam Vital Signs: Last Vital Signs Pulse 74 05/20/24 09:54 BP 140/68 H 05/20/24 09:54 BMI result Body Mass Index 21.6 Const General: comfortable and no acute distress Orientation/consciousness: patient oriented x3 HEENT Other: Unremarkable Head: Yes normal to inspection Neck Neck: Yes normal visual inspection Chest Chest palpation & inspection: normal inspection of the chest Resp Auscultation: clear to auscultation bilaterally Cardio Palpation: normal PMI Heart sounds: S1 normal heart sound present, S2 normal heart sound present, no gallops, Murmur heart sound present systolic II/ and at the right sternal border and no rubs GI Palpation (GI): Soft to palpation Back/Spine/Pelvis Other: unremarkable Skin General skin exam: no rashes or lesions noted Neuro General: patient oriented x3 Extrem General: Yes normal to inspection Psych Mental Status: mental status grossly normal Office Procedures EKG Details: EKG with underlying sinus rhythm at 74/Min; leftward axis; nonspecific ST-T changes; normal [place] and corrected QT. PVC. [id number], Complete Assessment & Plan Assessment & Plan (1) Aortic valve calcification: Code(s): I35.9 - Nonrheumatic aortic valve disorder, unspecified Category: Medical (2) Mitral valve annular calcification: Code(s): I34.81 - Nonrheumatic mitral (valve) annulus calcification Category: Medical (3) Smoker: Code(s): F17.200 - Nicotine dependence, unspecified, uncomplicated Category: Social Hx (4) Hypertension: Code(s): I10 - Essential (primary) hypertension Category: Medical Qualifiers: Hypertension type: primary hypertension Qualified Code(s): I10 - Essential (primary) hypertension Plan In the most recent echocardiogram, LVEF 60-65%. Calcific mitral/aortic valve changes but no significant valvular dysfunction. Upper normal ascending aortic size at 3.6 cm. Overall, long-term smoker, hypertensive, early calcific valvular findings as above. As she is completely asymptomatic from cardiac, mainly risk factor modification. Advised to stop smoking and she states she will try. Blood pressure management. We can follow up in 2 years or so with repeat echocardiogram. In the interim, she will call with concerns. Coding Level of Care Code Est Pt Level 3 (75652) Diagnoses Aortic valve calcification I35.9 Mitral valve annular calcification I34.81 Smoker F17.200 Primary hypertension I10 Hypertension type: primary hypertension CPT Codes EKG - CPT: [id number], Complete ([id number])
== END 2024-05-20 10:15 | disposition home or self-care (01) ==
PROVIDERS: PCP Family Medicine; Visit Provider Internal Medicine
DX: I35.9 Nonrheumatic aortic valve disorder, unspecified (principal); I34.81 Nonrheumatic mitral (valve) annulus calcification; F17.200 Nicotine dependence, unspecified, uncomplicated; I10 Essential (primary) hypertension
CPT/HCPCS: 93010; 99213

== ENCOUNTER → 2024-05-20 09:49 | Outpatient (BNVA) | payer MEDICARE, SELFPAY | PROVIDERS: PCP Family Medicine; Visit Provider Internal Medicine | DX: I49.3 Ventricular premature depolarization (principal); I35.9 Nonrheumatic aortic valve disorder, unspecified; I34.81 Nonrheumatic mitral (valve) annulus calcification; I10 Essential (primary) hypertension; F17.210 Nicotine dependence, cigarettes, uncomplicated | CPT/HCPCS: 93005; 99212 ==

== ENCOUNTER 2024-06-29 10:44 | Outpatient (AMB) | payer MEDICARE, SELFPAY ==
--- NOTE | 2024-06-29 11:21 | AM.OFFWIN_ITS ---
Intake Vital Signs 06/29/24 11:24 Height 5 ft 4 in Weight 128 lb 8 oz BMI 22.1 BP 124/70 Blood Pressure Location Lt brachial Position Sitting Respiration 13 Pulse 74 Pulse Source Pulse Oximeter Pulse Oximetry (%) 98 Oxygen Delivery Method Room Air Intake Visit Reasons: hip and leg pain Intake Note: Patient complaining of left leg and hip px x 6 months Patient Tobacco Use Status: Current everyday Tobacco user Allergies No Known Allergies Allergy (Verified 06/29/24 11:32) Medication List - Last Reconciled 06/29/24 by Cintia Costa [facility] lisinopril 20 mg PO DAILY 90 days Do you need a note to return to daycare/school/sports/work: No HPI HPI Comments History of Present Illness Details History of Present Illness The patient is a 63-year-old female presenting with chronic left hip pain. The pain has persisted for six months and has been progressively worsening. She reports no recent injuries to the area. The patient describes the pain as severe enough to interfere with daily activities, such as dressing and personal hygiene, and is considering ceasing work due to the discomfort. The pain extends from the hip down the left leg, impacting the thigh and foot. The patient already underwent a procedure for sciatica last year, which resolved the condition, but did not involve any direct treatment for the left hip itself. The last radiographic assessment of her hip in 2022 revealed avascular necrosis w/o complication, but there has been no new imaging since. She has not been attending physical therapy or seeing pain management currently. Exam Awake alert oriented LLE neurovasc intact. She has general wasting of mucles. FROM L hip. Pain in left lower back with SLR bilat. With palp has pain over anteriomedial aspect of L hip and over greater trochanter. Results Ortho note and xray from 2022 reviewed Plan - Order a new X-ray of the left hip for further evaluation and assessment of current bone status. She is not able to get xray today; will go some time this week. - prescription of an anti-inflammatory m edication for pain management, instructing the patient to take it once daily with food to avoid gastrointestinal disturbance. - Provide advice on using topical lidoca ine patches as needed for additional pain relief. She has some at home. - Once the X-ray results are obtainedradhaine the necessity of referral back to orthopedic specialists for further management based on the findings. - Consider broader management of pain, including potential re-introduction to physical therapy, depending on findings and patient's pain relief status. - Educate patient on scheduling when pos sible to facilitate access to diagnostics and follow-up care. - Consideration for low back as cause of her pain if xray stable/unchanged from previous. At that time, can refer back [place] [facility] Patient was informed and verbally consented to the use of an ambient scribe for clinic note documentation during this visit. Total time spent caring for the patient today was 30 minutes. This includes time spent before the visit reviewing the chart, time spent during the visit, and time spent after the visit on documentation PFSH Medical History EtOH dependence Heart murmur High blood pressure Surgical History History of lumbar laminectomy Hx of bilateral cataract extraction Hx of tonsillectomy History of ankle surgery History of eye surgery Family History Mother Breast cancer Sister Breast cancer Father Diabetes Other Substance use disorder Social History Household Members Other:: adult son Housing: Apartment Are you a primary medicare specialist to a significant other at home: No Do you presently have visiting nurse or other home services: No Alcohol intake: never Comment: all counts correct Patient Tobacco Use Status: Current everyday Tobacco user Tobacco use type: Cigarette Cigarette Packs Per Day: 0.7 Cigarettes Per Day: 8 Years Smoked: 10 e-Cigarette/Vaping Use: Never Used Second Hand Smoke Exposure: Yes Substance Use Type: Marijuana service: No Current occupational status: disabled 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 Current occupational exposures/hazards: No Sexual orientation: Straight/Heterosexual Gender identity: Female Cognitive needs: No Hearing needs: No Vision needs: No Physical Exam Vital Signs: Last Vital Signs Pulse 74 06/29/24 11:24 Resp 13 06/29/24 11:24 BP 124/70 06/29/24 11:24 Pulse Ox 98 06/29/24 11:24 Oxygen Delivery Method Room Air 06/29/24 11:24 BMI result Body Mass Index 22.1 Assessment & Plan Assessment & Plan (1) Lateral pain of left hip: Code(s): M25.552 - Pain in left hip (2) Avascular necrosis of bone of left hip: Comment: noted on xray 2022 Code(s): M87.052 - Idiopathic aseptic necrosis of left femur (3) Chronic radicular pain of lower back: Comment: affecting LLE Code(s): M54.16 - Radiculopathy, lumbar region; G89.29 - Other chronic pain Plan . Orders: Orders XR hip LT min 2V Today M25.552 - Pain in left hip, M87.052 - Idiopathic aseptic necrosis of left femur Medications: New meloxicam 15 mg PO DAILY 30 tabs 0RF Coding Level of Care Code Est Pt Level 4 (10181) Diagnoses Lateral pain of left hip M25.552 Avascular necrosis of bone of left hip M87.052 Chronic radicular pain of lower back M54.16; G89.29
[2024-06-29 11:24] VITALS: BP 124/70; PULSE 74; RESP 13; O2SAT 98; BMI 22.1
== END 2024-06-29 11:40 | disposition home or self-care (01) ==
LOC: HO.HMCWIW 10:44
PROVIDERS: PCP Family Medicine; Visit Provider Nurse Practitioner Family
DX: M25.552 Pain in left hip (principal); M87.052 Idiopathic aseptic necrosis of left femur; M54.16 Radiculopathy, lumbar region; G89.29 Other chronic pain

== ENCOUNTER → 2024-06-29 10:44 | Outpatient (BNVA) | payer MEDICARE, SELFPAY | PROVIDERS: PCP Family Medicine; Visit Provider Nurse Practitioner Family | DX: M25.552 Pain in left hip (principal); M87.052 Idiopathic aseptic necrosis of left femur; M54.16 Radiculopathy, lumbar region; G89.29 Other chronic pain | CPT/HCPCS: 99212 ==

== ENCOUNTER 2024-07-20 09:58 | Outpatient (REF) | payer MEDICARE, SELFPAY ==
--- NOTE | ~2024-07-20 | XR_ITS ---
EXAMINATION: XR HIP, LEFT CLINICAL INFORMATION: M87.052 - Idiopathic aseptic necrosis of left femur COMPARISON: 07/29/2022. TECHNIQUE: Two views of the left hip. FINDINGS: No fracture, dislocation, or malalignment. Geographic sclerosis of the subchondral left femoral head again noted consistent with AVN. There is no evidence of subchondral collapse or articular surface irregularity. Finding appears stable from prior. Mild degenerative arthritis left hip joint. Remainder the bony structures are intact. Degenerative changes of the left SI joint and lower lumbar spine. No discrete soft tissue abnormality. XR/XR hip LT min 2V IMPRESSION: 1. Stable AVN left femoral head without subchondral collapse. 2. Stable mild degenerative arthrosis left hip joint. Electronically signed by: Elijah Ramsay MD 07/20/2024 11:34 AM DMITRY OZUNA
== END 2024-07-20 09:59 | disposition home or self-care (01) ==
LOC: HO.XRAY 09:58
PROVIDERS: PCP Family Medicine; Visit Provider Nurse Practitioner Family
DX: M25.552 Pain in left hip (principal); M87.052 Idiopathic aseptic necrosis of left femur
CPT/HCPCS: 73502

== ENCOUNTER 2024-07-20 10:00 | Outpatient (REF) | payer MEDICARE, SELFPAY | END 2024-07-20 10:01 | disposition home or self-care (01) | LOC: HO.MAMMO 10:00 | PROVIDERS: Visit Provider Family Medicine | DX: Z13.89 Encounter for screening for other disorder (principal) ==

== ENCOUNTER → 2024-07-20 10:03 | Outpatient (BNV) | payer MEDICARE, SELFPAY | PROVIDERS: PCP Family Medicine; Visit Provider Radiology Diagnostic Radiology | DX: M87.052 Idiopathic aseptic necrosis of left femur (principal) | CPT/HCPCS: 73502 ==

== ENCOUNTER 2024-08-26 10:00 | Outpatient (AMB) | payer MEDICARE, SELFPAY ==
--- NOTE | 2024-08-26 10:02 | A.OFFVIS_ITS ---
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 She has a history of left L4-L5 decompression surgery performed in 2022 for sciatica, which successfully alleviated her sciatic and back pain. However, post-surgery, she developed a pinched nerve in her left leg, leading to unresolved left leg pain with numbness and tingling, despite undergoing physical therapy in March- April 2024 with no improvement. 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 Denies previous hip injections or Orthopedic evaluation. Her left hip pain is not constant but occurs intermittently, initiated around the start of winter. Pain radiates to the groin and is exacerbated by certain movements such as squatting and internal or external rotation of the hip. We will proceed with left hip MRI and an EMG of the left lower extremity for further evaluation of current symptoms. The patient will also be advised to consult with Dr. Belcher for an orthopedic evaluation considering her condition of avascular necrosis and hip arthritis. Denies any fever or chills, abdominal pain, weakness, bladder or bowel dysfunction or saddle anesthesia. - Onset and Timing: Pain in the left hip began around the start of winter, with constant lower back pain and intermittent groin discomfort. - Quality and character: Pain in the left hip exacerbated by movements like squatting, getting up from a sitting position, internal and external rotation, and climbing stairs. There is also left buttock pain, left-side lower back pain, and radiating pain down the left leg. - Treatments tried and effect: - L4-L5 decompression surgery performed two years ago alleviated sciatica and back pain but resulted in a pinched nerve causing pain down the left leg. - Physical therapy before the holidays (March-April 2024) did not result in any pain relief. - Current medications include Meloxicam, which the patient reports as ineffective, and Tylenol Arthritis. - Use of a vibrating heating pad for pain relief at home. - Aggravating factors: Movement including getting up from sitting, bending, putting on shoes or socks, and climbing stairs increases pain. Prolonged sitting. - Alleviating factors: Use of a vibrating heating pad has been beneficial for the patient. - Affect: Reports frustration with pain; expressed that pain affects daily activities such as getting dressed, sitting, standing, and walking. - Analgesia: Currently taking Meloxicam and Tylenol Arthritis with limited relief. Previous use of gabapentin, unable to specify the time of use. - Adverse Effects: Reports no side effects from Meloxicam, including no gastrointestinal discomfort. No current report of adverse effects from other medications now. - Activities of Daily Living: Pain affects activities like sitting, standing, dressing, using the toilet, and daily walking. - Aberrant Drug Related Behaviors: No evidence of medication misuse or abuse; does not use alcohol but uses marijuana from a dispensary for pain and sleep. PRIOR: Patient presents today to discuss results of recent lumbar spine MRI. She continues to endorse significant overall back pain that has been coming on as frequent shooting and stabbing pain that radiates down to her legs posteriorly and laterally is numbness and tingling as well as weakness which is worse on the left. She also reports left hip pain with mild left groin pain with weightbearing. Patient reports significant pain with walking or prolonged standing, bending or flexing forward. She also reports unable to get adequate sleep due to pain. Patient has been taking NSAIDs around the clock but notices it affects her stomach at times. She also reports neck pain with left sided periscapular stiffness and bilateral trapezius muscle tenderness. Denies any recent cough, cold, infection, fever or other significant changes in medical history since last office visit. Patient denies any bladder or bowel incontinence or saddle anesthesia. PRIOR: Patient is a pleasant 62 years old female with a history of avascular necrosis of left femoral head, presents today for initial evaluation for chronic back pain with radiation to her both legs. Patient denies any recent trauma, injury or falls. She states being seen by an Orthopedic clinic while living in [place] and has received hip injection and physical therapy without pain relief in 2019. Her back pain is axial and also radiates to her left hip, lower back and into her bilateral lower legs laterally and posteriorly, worse on the left. Reports left leg weakness with numbness and tingling. She also has significant pain and tenderness in the projection of the left sacroiliac joint. Pain increases with walking, weight bearing, and changing positions. Patient has been taking diclofenac potassium 50 mg TID prn and admits taking this more than prescribed in a day due to severe pain. Reports she is aware of [facility] renal complications with NSAIDs. Patient reports she currently does not have a car and has been walking to work 3 times a week and also babysits her grandkids. Patient reports increase in pain by nighttime and pain has been progressively worse since last summer. Denies any fever, weight loss, abdominal pain, bladder or bowel incontinence or saddle anesthesia. Location Chronic low back pain with radiation to legs Duration Chronic, worsening for past 8 months Characteristics of symptom or complaint Pulsing, throbbing, shooting, stabbing, sharp, aching, sore, heavy Aggravating or associated factors Walking, weight bearing, changing positions, prolonged standing or sitting Relieving factors Rest, heat therapy, NSAIDs, activity modification Treatment PT and left hip injection in 2019 -no pain relief, no function improvement FORMERLY [facility], [facility] Medical History EtOH dependence Heart murmur High blood pressure Surgical History History of lumbar laminectomy Hx of bilateral cataract extraction Hx of tonsillectomy History of ankle surgery History of eye surgery Family History Mother Breast cancer Sister Breast cancer Father Diabetes Other Substance use disorder Social History Household Members Other:: adult son Housing: Apartment Are you a primary health and social care teacher to a significant other at home: No Do you presently have visiting nurse or other home services: No Alcohol intake: never Comment: all counts correct Patient Tobacco Use Status: Current everyday Tobacco user Tobacco use type: Cigarette Cigarette Packs Per Day: 0.7 Cigarettes Per Day: 8 Years Smoked: 10 e-Cigarette/Vaping Use: Never Used Second Hand Smoke Exposure: Yes Substance Use Type: Marijuana service: No Current occupational status: disabled 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 Denies numbness or tingling on the right side. - Musculoskeletal: Reports left hip pain and discomfort in the groin area, intermittent in nature. Constant lower back pain and left buttock pain. Difficulty with internal/external rotation, squatting, using the toilet, and climbing stairs. All systems reviewed & are unremarkable except as noted in HPI and below Physical Exam Vital Signs: Last Vital Signs Pulse 75 08/26/24 10:06 BP 181/81 H 08/26/24 10:06 Pulse Ox 96 08/26/24 10:06 Oxygen Delivery Method Room Air 08/26/24 10:06 BMI result Body Mass Index 22.0 General: Appears afebrile. Alert and oriented. Mood and affect appropriate. Follows and participates in conversation appropriately. Respiratory effort is unlabored. No cough. Able to transition from sit to stand unassisted. Antalgic gait with limping. Difficulty getting up from sitting to standing, experiences pain. Back/Spine/Pelvis Other: Limited lumbar ROM due to pain. Lumbar flexion is intact and reproduces mild symptoms, lumbar extension reproduces moderate pain. Demonstrates 5/5 right and 4/5 left due to pain strength of quadriceps bilaterally as well as flexion/dorsiflexion of bilateral feet against resistance. 2+ pedal pulses bilaterally. Straight leg rise with dorsiflexion negative bilaterally. +1 patellar and achilles reflexes bilaterally. Facet loading test positive bilaterally. Kennedy sign, Quan?s reproduces left buttock, back, lateral hip and groin pain, [place], Pelvic compression and Stinchfield tests are positive on the left. Moderate groin pain with left I/E hip rotations. Valsalva maneuver negative. Cervical Spine: cervical muscular tenderness, pain with cervical ROM and No Cervical spine tenderness Thoracic/Lumbar Spine: thoracic and lumbar spine normal to inspection, Lasegue's sign positive (Worse on the left L4-L5 and L5-S1 distribution) bilateral and localized, pain with thoraco-lumbar ROM, paraspinal muscle tenderness, thoraco- lumbar ROM limited, No thoracic spinal tenderness and lumbar spinal tenderness Pelvis: buttock tenderness Sacroiliac joints: bilaterally tender to palpation Results Reviewed Results Reviewed: XR HIP, LEFT 07/20/24 CLINICAL INFORMATION: M87.052 - Idiopathic aseptic necrosis of left femur COMPARISON: 07/29/2022. TECHNIQUE: Two views of the left hip. FINDINGS: No fracture, dislocation, or malalignment. Geographic sclerosis of the subchondral left femoral head again noted consistent with AVN. There is no evidence of subchondral collapse or articular surface irregularity. Finding appears stable from prior. Mild degenerative arthritis left hip joint. Remainder the bony structures are intact. Degenerative changes of the left SI joint and lower lumbar spine. No discrete soft tissue abnormality. IMPRESSION: 1. Stable AVN left femoral head without subchondral collapse. 2. Stable mild degenerative arthrosis left hip joint. Assessment & Plan Assessment & Plan (1) Avascular necrosis of bone of left hip: Comment: noted on xray 2022 Code(s): M87.052 - Idiopathic aseptic necrosis of left femur Category: Medical (2) Left hip pain: Code(s): M25.552 - Pain in left hip Category: Medical (3) Sciatica, left side: Code(s): M54.32 - Sciatica, left side Category: Medical (4) S/P lumbar laminectomy: Code(s): Z98.890 - Other specified postprocedural states Category: Surgical (5) Numbness and tingling of left lower extremity: Code(s): R20.0 - Anesthesia of skin; R20.2 - Paresthesia of skin Category: Medical (6) Left hip pain: Code(s): M25.552 - Pain in left hip Category: Medical (7) Lumbar radiculopathy: Code(s): M54.16 - Radiculopathy, lumbar region Category: Medical Plan For the management of the patient's left hip pain due to mild degenerative arthritis and stable avascular necrosis, a left hip MRI has been ordered to provide more detail on the current condition of the joint. The patient was advised against immediate cortisone injections until after an Orthopedic consultation due to the risk of accelerating joint deterioration associated with avascular necrosis. Scheduled a left hip MRI to further evaluate current symptoms. The patient has agreed to make an appointment with Orthopedics before receiving any intervention in the hip. The patient's ongoing use of Meloxicam will be continued with guidance to take it with food and water, as no adverse effects were noted. To address the continuing numbness and tingling, especially as they mirror pre- surgery sensations, an EMG study on the left lower extremity is planned, followed by a potential repeat lumbar MRI if the EMG indicates lumbar radiculopathy. Regarding pain management, gabapentin will be initiated at a dose of 300 mg once daily at bedtime for a few days, with a gradual increase to three times daily, provided it's well tolerated. This approach aims to alleviate lower leg symptoms. All questions and concerns have been answered and patient agreed with the plan. Follow up for MRI/EMG results and sooner as needed. Patient was informed and verbally consented to the use of an ambient scribe for clinic note documentation during this visit. Orders: Orders NE nerve conduction velocity Today M54.32 - Sciatica, left side, R20.0 - Anesthesia of skin, R20.2 - Paresthesia of skin, Z98.890 - Other specified postprocedural states NE electromyogram (EMG) Today M54.32 - Sciatica, left side, R20.0 - Anesthesia of skin, R20.2 - Paresthesia of skin, Z98.890 - Other specified postprocedural states MR hip LT wo con Today M25.552 - Pain in left hip, M87.052 - Idiopathic aseptic necrosis of left femur Medications: New gabapentin 300 mg PO TID 90 caps 0RF pain 30 days M25.552 - Pain in left hip, M54.16 - Radiculopathy, lumbar region, M54.32 - Sciatica, left side, R20.0 - Anesthesia of skin, R20.2 - Paresthesia of skin, Z98.890 - Other specified postprocedural states Patient Instructions: I discussed with the patient her current diagnoses, including left hip pain attributed to mild degenerative arthritis and 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 We discussed surgical history, including past L4-L5 decompression surgery which relieved sciatica and back pain but led to persisting symptoms of numbness and tingling in the left leg. The patient was informed that while the previous surgery resolved back pain and alleviated sciatic pain, the left leg numbness and tingling could be related to recurrence of nerve involvement and an EMG will be ordered to assess this further. I discussed the risks of applying a cortisone injection to the left hip, as it may exacerbate the avascular necrosis and accelerate the need for hip replacement. The patient was advised to consult with Orthopedics regarding possible surgical management options for the left hip, given the identified avascular necrosis. - Continue taking meloxicam as prescribed with food and water to minimize gastrointestinal side effects. - Start gabapentin 300 mg by taking one capsule at bedtime for 3-5 days, then increase to twice a day for 3-5 days, and then three times daily if well tolerated. - Avoid activities that cause severe hip pain, such as walking long distances or cycling. - Schedule an appointment with Dr. Belcher, the orthopedic doctor, for an evaluation of your left hip condition. - Use the vibrating heating pad as needed for pain relief. - Report any side effects or unusual symptoms from taking gabapentin, including rashes or swelling of the lower extremities. - Attend the forthcoming appointment for a left hip MRI and EMG of the left lower extremity as scheduled. Coding Level of Care Code Est Pt Level 4 (79471) Complex EM visit Add On G2211 Diagnoses Avascular necrosis of bone of left hip M87.052 Left hip pain M25.552 Sciatica, left side M54.32 S/P lumbar laminectomy Z98.890 Numbness and tingling of left lower extremity R20.0; R20.2 Lumbar radiculopathy M54.16
[2024-08-26 10:06] VITALS: BP 181/81; PULSE 75; O2SAT 96; BMI 22.0
--- OUTSIDE RECORDS SUMMARY | 2024-08-26 12:22 | XMS_ITS | Patient Health Record ---
Author Organization [facility] Billing Info Address [address] [place] [address] [place] [address] Care Team Providers Care Management Engineer Name Role Phone JENNIFER ALVARES Primary Care Provider CHARLETTE Bass [phone] Reason For Referral No Information Medications Medication SIG (Take, Route, Frequency, Duration) Notes Start Date End Date Status Protonix 20 MG 1 tablet Orally Daily 03/16/2020 Active Propranolol HCl 10 MG 1 tablet Orally On ce a day 08/24/2020 Active Clotrimazole-Betamethaso ne 1-0.05 % 1 application Externally Twice a day for 15 day(s) 04/06/2020 Active Plenvu 140 GM as directed in ml Or ally day prior to procedure for 1 day 04/06/2020 Not-Taking Social History Tobacco Use: Social History Observation Description Date Details (start date - stop date) Current Smoker NA - NA Tobacco Status: Question Answer Notes Patient is a current every day smoker Problems Problem Type SNOMED Code ICD Code Onset Dates Problem Status W/U Status Risk Notes Problem 641501888 Chronic superfic ial gastritis without bleeding (K29.30) Active confirmed Problem 4272836542046030 Alcoholic hepat itis with ascites (K70.11) Active confirmed Problem 277978185 Encounter for screening colonoscopy (Z12.11) Active confirmed Problem 645870288 Elevated LFTs (R79.89) Active confirmed Problem 85002627 ETOH abuse (F10.10) Active confirmed Problem 409135387440126 Total bilirubin, elevated (R17) Active confirmed Problem 249086850 Anemia, unspecif ied type (D64.9) Active confirmed Problem 818000257 Gastroesophageal reflux disease, esophagitis presence not specified (K21.9) Active confirmed Problem 665588541 Leukocytosis, unspecified type (D72.829) Active confirmed Problem 70068101 Hypotension, unspecified hypotension type (I95.9) Active confirmed Problem 67297719 Esophageal varic es determined by endoscopy (I85.00) Active confirmed Problem 05976319 Diarrhea, unspecified type (R19.7) Active confirmed Problem 3057522875699396 Ascites due to alcoholic hepatitis (K70.11) Active confirmed Plan Of Treatment Pending Test Test Name Order Date Anti Mitochondrial (16257) 03/09/2020 COLONOSCOPY, SCREENING, INDIVIDUAL W/ HI GH RISK (G0105) 04/06/2020 ALPHA FETOPROTEIN TUMOR MARKER (CNFL-AFP TM) 03/09/2020 COMPREHENSIVE METABOLIC PANEL(Q-36694) 1 COMPREHENSIVE METABOLIC PANEL(Q-51483) 0 08/24/2020 HEPATIC FUNCTION PANEL (Q-38873) 021 CBC (H/H, RBC, INDICES, WBC, PLT) (Q-175 9) 08/24/2020 CBC (H/H, RBC, INDICES, WBC, PLT) (Q-175 9) 03/09/2020 LIVER FIBROSIS PANEL (HEPASCORE (R)) (Q- 22339) 03/09/2020 ALPHA FETOPROTEIN, TUMOR MARKER (Q-237) 03/09/2020 ALPHA FETOPROTEIN, TUMOR MARKER (Q-237) 08/24/2020 ALPHA FETOPROTEIN, TUMOR MARKER (Q-237) 07/11/2020 ALPHA FETOPROTEIN, TUMOR MARKER (Q-237) 03/30/2020 ABELINO SCREEN, IFA, W/REFL TITER AND PATTER N (Q-249) 03/09/2020 COMPREHENSIVE METABOLIC PANEL (REFL) CUS ANKIT ([id number]) 03/09/2020 CBC (INCLUDES DIFF/PLT)(Q-6399) 03/30/20 20 CBC (INCLUDES DIFF/PLT)(Q-6399) 07/11/19 21 HEPATITIS PANEL (Q-6462) 07/11/2020 HEPATITIS PANEL (Q-6462) 03/30/2020 HEPATITIS PANEL (Q-6462) 03/09/2020 US- PARACENTESIS W IMAGE INCL (70496)(PW EH-PARAWIU) 03/09/2020 PT/INR (COLH-PTINR) 03/09/2020 APTT (47720) 03/09/2020 EGD BIOPSY SINGLE/MULTIPLE (43425) 04/06 ANTI SMOOTH MUSCLE AB(CH-SMOOAB) 03/09 Insurance Providers Payer Name Payer Address Payer Phone Subscriber Number Group Number Insured Name Patient Relationship to Insured Coverage Start Date Coverage End Date MEDICARE [place] PART B [address] [facility] [place] [id number] Naomy Cervantes Self - patient is the insured [facility] MEDICARE [facility] [address] [place], [place] [id number] Naomy Cervantes Self - patient is the insured Medical (General) History Medical History History ICD Code High blood pressure Surgical History Surgery Date(Month/Year) ankle surgery Hospitalization History Reason Date(Month/Year) childbirth
== END 2024-08-26 10:27 | disposition home or self-care (01) ==
PROVIDERS: PCP Family Medicine; Referring Provider Nurse Practitioner Family; Visit Provider Nurse Practitioner Family
DX: M87.052 Idiopathic aseptic necrosis of left femur (principal); M25.552 Pain in left hip; M54.32 Sciatica, left side; Z98.890 Other specified postprocedural states; R20.0 Anesthesia of skin; R20.2 Paresthesia of skin; M54.16 Radiculopathy, lumbar region
CPT/HCPCS: 99214; G2211

== ENCOUNTER 2024-08-26 11:07 | Outpatient (REF) | payer MEDICARE, SELFPAY ==
[2024-08-26 14:11] LABS: Appearance Urine Cloudy; Color Urine Dark Yellow; Glucose Urine UA Negative (Negative); Leukocyte Esterase Urine Moderate (2+) (Negative); Nitrite Urine Negative (Negative); Specific Gravity - Urine 1.025 (1.005-1.025); UMIC TRIGGER UA YES; Urine Blood Negative (Negative); Urine Ketones Trace mg/dL (Negative); Urine Protein Trace mg/dL (Neg-Trace)
[2024-08-26 14:24] LABS: Creatinine Urine 180.52 mg/dL; Microalbum/Creatinine Ratio Ur 14.4 ug/mg cr (<30)
[2024-08-26 14:26] LABS: Bacteria Urine 4+ (None Seen); Hyaline Casts Urine 0-2 /LPF (0-2); RBC Urine 0-2 /HPF (0-2); Squamous Epithelial Cell Urine >20 /HPF (0-2); WBC Urine 0-5 /HPF (0-5)
[2024-08-26 14:27] LABS: MANUAL DIFF FLAG NO
[2024-08-26 14:29] LABS: Basophils Absolute Auto 0.1 X10*3/uL (0.0-0.2); Eosinophils Absolute Auto 0.2 X10*3/uL (0.0-0.4); Eosinophils Percent Auto 2.1 % (0-4); Hematocrit 38.3 % (37.0-47.0); Hemoglobin 12.6 g/dl (12.0-16.0); Imm Gran Abs Auto 0.03 X10*3/uL (0.00-0.03); Imm Gran Pct Auto 0.3 % (0.0-0.4); Lymphocytes Absolute Auto 3.1 X10*3/uL (1.2-4.9); Lymphocytes Percent Auto 33.5 % (20-40); Mean Corpuscular HGB Conc 32.9 g/dl (31.0-35.0); Mean Corpuscular Hemoglobin 31.7 pg (27.0-33.0); Mean Corpuscular Volume 96.5 fL (80.0-98.0); Mean Platelet Volume 10.9 fL (9.4-12.3); Monocytes Absolute Auto 0.5 X10*3/uL (0.1-1.2); Neutrophils Absolute Auto 5.4 x10*3/uL (2.0-8.3); Neutrophils Percent Auto 58.1 % (45-73); Platelet Count 258 X10*3/uL (160-400); Red Blood Count 3.97 X10*6/uL (4.20-5.50); Red Cell Distribution Width 13.6 % (11.0-16.0); White Blood Count 9.3 X10*3/uL (4.8-10.8)
[2024-08-26 15:08] LABS: Alanine Aminotransferase 35 U/L (0-31); Albumin Level 4.1 g/dL (3.5-5.0); Alkaline Phosphatase 69 U/L (39-117); Anion Gap 10 (12-20); Aspartate Amino Transferase 43 U/L (5-31); Bilirubin Total 0.3 mg/dL (0.0-1.0); Blood Urea Nitrogen 12 mg/dL (9-16); Calcium 9.4 mg/dL (8.4-10.2); Carbon Dioxide 27 mmol/L (22-29); Chloride 109 mmol/L (96-108); Cholesterol 187 mg/dL (<200); Estimated Glomerular Filt Rate > 60; Glucose Fasting 80 mg/dL (60-99); HDL Cholesterol 49 mg/dL (>40); LDL Cholesterol Calculated 122 mg/dL (<100); Potassium 4.2 mmol/L (3.3-5.1); Sodium 142 mmol/L (135-145); TSH reflex Free T4 0.43 uIU/mL (0.32-4.0); Total Protein 7.1 g/dL (6.5-8.0); Triglycerides 84 mg/dL (<150)
== END 2024-08-26 11:08 | disposition home or self-care (01) ==
LOC: HO.WFDLDS 11:07
PROVIDERS: Visit Provider Family Medicine
DX: Z00.00 Encounter for general adult medical examination without abnormal findings (principal); I10 Essential (primary) hypertension; H92.02 Otalgia, left ear
CPT/HCPCS: 36415; 80053; 80061; 81001; 82043; 82570; 84443; 85025; 99212

== ENCOUNTER 2024-08-31 08:45 | Outpatient (AMB) | payer MEDICARE, SELFPAY ==
--- NOTE | 2024-08-31 09:13 | MHC.PC.OV ---
Vital Signs 08/31/24 09:21 Height 5 ft 4 in Weight 127 lb 4 oz BMI 21.8 BP 130/60 Blood Pressure Location Rt brachial Position Sitting Respiration 10 L Pulse 67 Pulse Source Pulse Oximeter Temp 98.2 F Temp Source Oral Pulse Oximetry (%) 96 Oxygen Delivery Method Room Air Intake Visit Reasons: CPE with f/u labs and health maint. 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 HPI Details 64 y/o female presents for a CPE with f/u labs and health maintenance. Labs drawn 08/26/24. Reviewed labs with pt. Elevated liver enzymes - AST 43, ALT 35. Triglycerides 84. TC 187. LDL 122. HDL 49. Follows up with Roberto Chavez for pap smears. She notes colonoscopy was around 5 years ago. She notes she is due. Bacteria in urine. Denies any urinary symptoms. Reports ongoing issues with hip pain. Follows up with pain management. HPI Comments History of Present Illness Details Documentation assistance for Ramesh Ventura MD, was provided by Dillon Sharma,? Residential Instructor on 08/31/2024 at 9:40 AM DMITRY. I, Dr. Ventura, have read, observed, and verified documentation. ?? PFSH Medical History EtOH dependence Heart murmur High blood pressure Surgical History History of lumbar laminectomy Hx of bilateral cataract extraction Hx of tonsillectomy History of ankle surgery History of eye surgery Family History Mother Breast cancer Sister Breast cancer Father Diabetes Other Substance use disorder Social History Household Members Other:: adult son Housing: Apartment Are you a primary insurance healthcare representative to a significant other at home: No Do you presently have visiting nurse or other home services: No Alcohol intake: never Comment: all counts correct Patient Tobacco Use Status: Current everyday Tobacco user Tobacco use type: Cigarette Cigarette Packs Per Day: 0.7 Cigarettes Per Day: 8 Years Smoked: 10 e-Cigarette/Vaping Use: Never Used Second Hand Smoke Exposure: Yes Substance Use Type: Marijuana service: No Current occupational status: disabled Current occupation: [employer] Current occupational exposures/hazards: No Sexual orientation: Straight/Heterosexual Gender identity: Female Cognitive needs: No Hearing needs: No Vision needs: No Questionnaire PHQ-9 Over the last 2 weeks, how often have you been bothered by any of the following problems? 1. Little interest or pleasure in doing things: not at all 2. Feeling down, depressed, or hopeless: not at all 3. Trouble falling or staying asleep, or sleeping too much: not at all 4. Feeling tired or having little energy: several days 5. Poor appetite or overeating: nearly every day 6. Feeling bad about yourself - or that you are a failure or have let yourself or your family down: not at all 7. Trouble concentrating on things, such as reading the newspaper or watching television: not at all 8. Moving or speaking so slowly that other people could have noticed. Or the opposite - being so fidgety or restless that you have been moving around a lot more than usual: not at all 9. Thoughts that you would be better off or of hurting yourself in some way: not at all Total score: 4 Depression Screening Interpretation: Negative Depression Screening Done: Yes 36279 - PHQ-9 Billing: Yes Source: Developed by Drs. Royal George, Niki Huff, Donald Geller and colleagues, with an educational jeison from [employer]. Thrive Questionnaire Date Thrive assessed: 08/31/24 I am a: Patient What is your living situation today?: I have a steady place to live Within the past 12 months, did the food you bought not last and you didn't have the money to get more?: Never true Within the past 12 months, did you worry whether your food would run out before you got money to buy more?: Never true Do you have trouble paying for medicines?: No Do you have trouble getting transportation to medical appointments?: No Do you have trouble paying your heating and electricity bill?: Yes Do you have trouble taking care of your child, family member or friend?: No Do you have trouble with day-to-day activities such as bathing, preparing meals, shopping, managing finances, etc.?: No Are you currently unemployed and looking for a job?: No Are you interested in more education?: No Please select the resources that you would like help with: None Currently or been in a relationship where the following occur: No concerns reported THRIVE Score: 1 AUDIT C Alcohol Use Questionnaire (AUDIT-C) 1. How often do you have a drink containing alcohol?: Never 3. How often do you have six or more drinks on one occasion?: Never Total Score: 0 Score Reviewed/Action Taken: Yes ALECIA-7 AMB Questionnaire ALECIA-7 Date ALECIA - 7 assessed: 08/31/24 Feeling nervous, anxious, or on edge: 0 = Not at all Not being able to stop or control worryin = Not at all Worrying too much about different things: 0 = Not at all Trouble relaxin = Several days Being so restless that it is hard to sit still: 0 = Not at all Becoming easily annoyed or irritable: 0 = Not at all Feeling afraid as if something awful might happen: 0 = Not at all Total ALECIA-7 score (0-4 normal; 5-9 mild; 10-14 moderate; 15-21 severe): 1 Source: Developed by Drs. Royal George, Niki Huff, Donald Geller and colleagues, with an educational jeison from [employer]. ALECIA-7 Assessment Billing ALECIA-7 Assessment Tool: ALECIA-7 Assessment 47099 Review of Systems Const Denies chills, Denies fatigue, Denies fever(s), Denies headache(s) and Denies weakness Eyes Denies change in vision ENT Denies dizziness, Denies headache(s), Denies hearing loss, Denies nasal congestion, Denies sinus pain, Denies sinus pressure and Denies sore throat Card Denies chest pain, Denies lightheadedness, Denies dyspnea and Denies other (palpitations) Resp Denies cough, Denies dyspnea and Denies wheezing GI Denies abdominal pain, Denies melena, Denies hematochezia, Denies change in bowel habits, Denies dyspepsia and Denies nausea Denies hematuria and Denies dysuria Musc Denies abnormal gait, Denies myalgias, Denies arthralgias, Denies numbness and Denies tingling Skin/Breast Denies rash, Denies unusual bruising and Denies wounds Neuro Denies abnormal gait, Denies dizziness, Denies headache(s), Denies memory loss, Denies numbness, Denies Sensory deficit (Neuro), Denies tingling and Denies weakness Psych Denies anxiety, Denies depression and Denies memory loss Endo Denies cold intolerance, Denies fatigue, Denies heat intolerance, Denies polydipsia and Denies polyuria Brandon/Lymph Denies easy bleeding and Denies easy bruising Aller/Immun Denies wheezing Physical exam (Primary Care) Vital Signs: Last Vital Signs Temp 98.2 F 08/31/24 09:21 Pulse 67 08/31/24 09:21 Resp 10 L 08/31/24 09:21 BP 130/60 08/31/24 09:21 Pulse Ox 96 08/31/24 09:21 Oxygen Delivery Method Room Air 08/31/24 09:21 BMI result Body Mass Index 21.8 Tobacco/Smoking Status: Tobacco use Status Tobacco use date assessed 08/31/24 08/31/24 09:25 Patient Tobacco Use Status Current everyday Tobacco 08/31/24 09:15 Tobacco use type Cigarette 08/31/24 09:15 e-Cigarette/Vaping Use Never Used 08/31/24 09:15 PHQ-9: PHQ-9 Score PHQ-9: Total score 4 08/31/24 09:25 Depression Screening Interpretation: Negative Thrive Assessment: Date of Thrive Assessment Date Thrive assessed 08/31/24 08/31/24 09:25 Currently or been in a relationship where the following occur: No concerns reported Const General: no acute distress, well developed, alert and awake Nutritional Appearance: well nourished Orientation/consciousness: patient oriented x3 HENMT Head: Yes normocephalic and Yes atraumatic Ears: hearing grossly normal bilaterally and TM's normal bilaterally General nose exam: Normal external nose present and Normal nares present Mouth: Normal oral and palatal mucosa present and moist mucous membranes Teeth and gingiva: dentition normal Throat: Yes posterior oropharynx normal Eyes General: appearance normal, both eyes and all related structures Pupils: Equal, round and reactive pupils present and Pupil accommodation reflex normal EOM: EOMs intact bilaterally Neck Neck: Yes normal visual inspection, Yes no lymphadenopathy and Yes trachea midline Thyroid: Thyroid normal Carotids: no bruits Lymphatic: no lymphadenopathy noted Chest Chest palpation & inspection: normal inspection of the chest Resp Effort & Inspection: normal respiratory effort Auscultation: clear to auscultation bilaterally Cardio Rate: regular rate Rhythm: regular rhythm Heart sounds: S1 normal heart sound present, S2 normal heart sound present, no gallops, no murmurs and no rubs Bruits: no abdominal aortic bruits and no carotid bruits GI Palpation (GI): No Abdominal aortic bruit present, Soft to palpation, nontender, No hepatosplenomegaly present and No Rebound tenderness present Auscultation: normal bowel sounds General: Yes no CVA tenderness Back/Spine/Pelvis Back: no CVA tenderness Cervical Spine: cervical ROM normal and No Cervical spine tenderness Thoracic/Lumbar Spine: thoraco-lumbar ROM normal, No pain with thoraco-lumbar ROM, No thoracic spinal tenderness and No lumbar spinal tenderness Skin Lesions: no lesions Rashes: no rashes Trauma: no lacerations or abrasions Wounds: no wounds Nails: normal Neuro General: patient oriented x3 Cranial nerves: Yes Equal, round and reactive pupils present Cognition (Neuro): normal cognition Gait exam (Neuro): Normal gait present Motor exam (neuro): 5/5 motor strength present throughout Sensory Exam: No Sensory deficit (Neuro) Deep tendon reflexes (DTR's): Right patellar reflex intensity grade: 2+ and Left patellar reflex intensity grade: 2+ Extrem General: Yes normal to inspection and No edema Psych Appearance: grossly normal Affect: normal affect Attitude: cooperative Thought process: Normal thought process present Coding Level of Care Code Est Pt Level 3 (84172) Est Pt Prev Care >65y(85432) Diagnoses Adult general medical exam Z00.00 Elevated liver enzymes R74.8 Elevated LDL cholesterol level E78.00 Screening for colon cancer Z12.11 Bacteria in urine R82.71 Hip pain M25.559 Breast cancer screening by mammogram Z12.31 Screening for cervical cancer Z12.4 Screening for osteoporosis Z13.820 Additional Codes ALECIA-7 Assessment Billing - ALECIA-7 Assessment Tool: ALECIA-7 Assessment 55379 ([id number]) PHQ-9 - 08740 - PHQ-9 Billing: Yes ([id number]) Assessment & Plan Assessment & Plan (1) Adult general medical exam: Code(s): Z00.00 - Encounter for general adult medical examination without abnormal findings Category: Medical Plan: 64-year-old?female?presents?for?complete?physical?exam Encouraged?diet?with?active?lifestyle?and?plenty?exercise?as?tolerated (2) Elevated liver enzymes: Code(s): R74.8 - Abnormal levels of other serum enzymes Category: Medical Plan: Mildly?elevated?liver?enzymes Patient?denies?alcohol?and?Tylenol?use. Weight?is?controlled Patient?says?she?does?not?drink?much?water?at?all?and?encouraged?good?hydration Will?recheck?this?in?about?3?months (3) Elevated LDL cholesterol level: Code(s): E78.00 - Pure hypercholesterolemia, unspecified Category: Medical Plan: Patient?notes?that?she?eats?junk?food?package?snacks I?encouraged?her?to?decrease?or?discontinue?this Will?continue?to?monitor?cholesterol (4) Screening for colon cancer: Code(s): Z12.11 - Encounter for screening for malignant neoplasm of colon Category: Medical Plan: Patient?says?she?had?a?colonoscopy?about?5?years?ago?in?[place]?and?that?she?was?told?to?follow-up?in?5?years. Referred?to?Gastroenterology (5) Bacteria in urine: Code(s): R82.71 - Bacteriuria Category: Medical Plan: If?symptomatic. Increase?hydration (6) Hip pain: Code(s): M25.559 - Pain in unspecified hip Category: Medical Plan: Ongoing?severe?hip?pain?and?history?of?avascular?necrosis.??She?has?another?MRI?scheduled?for?next?week?and?follow-up?with?pain?management?after?that Now?taking?gabapentin?for?the?pain.??She?had?been?on?meloxicam She?can?also?taking?meloxicam?as?well?provided?she?hydrate?well.??Do?not?take?with?other?NSAIDs. (7) Breast cancer screening by mammogram: Code(s): Z12.31 - Encounter for screening mammogram for malignant neoplasm of breast Category: Medical Plan: Patient?had?her?mammogram?which?showed?no?evidence?of?malignancy?and?recommended?annual?screening?which?is?already?scheduled (8) Screening for cervical cancer: Code(s): Z12.4 - Encounter for screening for malignant neoplasm of cervix Category: Medical Plan: Followed?by?Roberto Chavez She?can?discuss?with?him?when/if?she?can?discontinue?Pap?smears. (9) Screening for osteoporosis: Code(s): Z13.820 - Encounter for screening for osteoporosis Category: Medical Plan: [age]?and?due?for?bone?density?test Ordered Orders: Orders Lipid Panel Today E78.00 - Pure hypercholesterolemia, unspecified, Z00.00 - Encounter for general adult medical examination without abnormal findings Comprehensive Points. Panel Fast Today R74.8 - Abnormal levels of other serum enzymes, Z00.00 - Encounter for general adult medical examination without abnormal findings XR DEXA axial skeleton Today M81.0 - Age-related osteoporosis without current pathological fracture UA and rflx microscopic Today Z00.00 - Encounter for general adult medical examination without abnormal findings Referrals Gastroenterology Referral Z12.11 - Encounter for screening for malignant neoplasm of colon Lung Cancer Screening Referral F17.200 - Nicotine dependence, unspecified, uncomplicated
[2024-08-31 09:21] VITALS: BP 130/60; PULSE 67; RESP 10; TEMP 36.8; O2SAT 96; BMI 21.8
== END 2024-08-31 10:02 | disposition home or self-care (01) ==
LOC: HO.HMCFM 08:45
PROVIDERS: PCP Family Medicine; Visit Provider Family Medicine
DX: Z00.00 Encounter for general adult medical examination without abnormal findings (principal); R74.8 Abnormal levels of other serum enzymes; E78.00 Pure hypercholesterolemia, unspecified; Z12.11 Encounter for screening for malignant neoplasm of colon; R82.71 Bacteriuria; M25.552 Pain in left hip; Z12.31 Encounter for screening mammogram for malignant neoplasm of breast; Z13.820 Encounter for screening for osteoporosis

== ENCOUNTER → 2024-08-31 08:45 | Outpatient (BNVA) | payer MEDICARE, SELFPAY | PROVIDERS: PCP Family Medicine; Visit Provider Family Medicine | DX: Z00.01 Encounter for general adult medical examination with abnormal findings (principal); R74.8 Abnormal levels of other serum enzymes; E78.00 Pure hypercholesterolemia, unspecified; R82.71 Bacteriuria; M25.551 Pain in right hip; M25.552 Pain in left hip; F17.200 Nicotine dependence, unspecified, uncomplicated; Z71.6 Tobacco abuse counseling | CPT/HCPCS: 96127; 99212; 99397 ==

== ENCOUNTER 2024-09-18 11:09 | Outpatient (REF) | payer MEDICARE, SELFPAY ==
--- NOTE | ~2024-09-18 | MR_ITS ---
EXAMINATION: MR HIP WITHOUT CONTRAST, LEFT CLINICAL INFORMATION: Idiopathic aseptic pneumatosis of left femur. COMPARISON: Correlated to the apex x-ray dated July 20, 2024. TECHNIQUE: MRI of the left hip was obtained using routine sequences on a high-field magnet. FINDINGS: There is a serpentine peripheral hypointense T1 bone lesion occupying the left femoral head and the anterior subcapital region with associated bone marrow STIR signal and mild volume loss. There is asymmetric joint space narrowing, left coxofemoral joint. There is increased the STIR signal within the medial aspect of the joint space/joint capsule. There is subtle bone marrow STIR signal in superior lateral and middle left acetabulum. No bone marrow signal within the intertrochanteric region, greater or lesser trochanter nor the proper left femoral neck. Degenerative changes in the symphysis pubis. There is a serpentine peripheral hypointense T1 bone lesion in the right femoral head without gross volume loss. There is bone marrow inhomogeneity throughout the bony pelvis, lower axial skeleton and the appendicular skeleton. Fluid-filled bladder. Fatty atrophy, mild to moderate, of the gluteal muscles. MR/MR hip LT wo con IMPRESSION: Ficat and Danika classification Stage II/stage III avascular necrosis, left hip and stage II, right hip. Electronically signed by: Harsha Song MD 09/20/2024 08:04 AM EDT
--- OUTSIDE RECORDS SUMMARY | 2024-09-18 11:17 | XMS_ITS | Patient Health Record ---
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) Active confirmed Problem 3481766750131707 Alcoholic hepat itis with ascites (K70.11) Active confirmed Problem 983217434 Encounter for screening colonoscopy (Z12.11) Active confirmed Problem 398760090 Elevated LFTs (R79.89) Active confirmed Problem 58661442 ETOH abuse (F10.10) Active confirmed Problem 727086431962083 Total bilirubin, elevated (R17) Active confirmed Problem 585023374 Anemia, unspecif ied type (D64.9) Active confirmed Problem 526665806 Gastroesophageal reflux disease, esophagitis presence not specified (K21.9) Active confirmed Problem 921757720 Leukocytosis, unspecified type (D72.829) Active confirmed Problem 36869691 Hypotension, unspecified hypotension type (I95.9) Active confirmed Problem 78477448 Esophageal varic es determined by endoscopy (I85.00) Active confirmed Problem 28853095 Diarrhea, unspecified type (R19.7) Active confirmed Problem 4573243068109640 Ascites due to alcoholic hepatitis (K70.11) Active confirmed Plan Of Treatment Pending Test Test Name Order Date Anti Mitochondrial (46386) 03/09/2020 COLONOSCOPY, SCREENING, INDIVIDUAL W/ HI GH RISK (G0105) 04/06/2020 ALPHA FETOPROTEIN TUMOR MARKER (CNFL-AFP TM) 03/09/2020 COMPREHENSIVE METABOLIC PANEL(Q-24368) 1 COMPREHENSIVE METABOLIC PANEL(Q-06164) 0 08/24/2020 HEPATIC FUNCTION PANEL (Q-66084) 021 CBC (H/H, RBC, INDICES, WBC, PLT) (Q-175 9) 08/24/2020 CBC (H/H, RBC, INDICES, WBC, PLT) (Q-175 9) 03/09/2020 LIVER FIBROSIS PANEL (HEPASCORE (R)) (Q- 74654) 03/09/2020 ALPHA FETOPROTEIN, TUMOR MARKER (Q-237) 03/09/2020 ALPHA FETOPROTEIN, TUMOR MARKER (Q-237) 08/24/2020 ALPHA FETOPROTEIN, TUMOR MARKER (Q-237) 07/11/2020 ALPHA FETOPROTEIN, TUMOR MARKER (Q-237) 03/30/2020 ABELINO SCREEN, IFA, W/REFL TITER AND PATTER N (Q-249) 03/09/2020 COMPREHENSIVE METABOLIC PANEL (REFL) CUS ANKIT ([id number]) 03/09/2020 CBC (INCLUDES DIFF/PLT)(Q-6399) 03/30/20 20 CBC (INCLUDES DIFF/PLT)(Q-6399) 07/11/19 21 HEPATITIS PANEL (Q-6462) 07/11/2020 HEPATITIS PANEL (Q-6462) 03/30/2020 HEPATITIS PANEL (Q-6462) 03/09/2020 US- PARACENTESIS W IMAGE INCL (41117)(PW EH-PARAWIU) 03/09/2020 PT/INR (COLH-PTINR) 03/09/2020 APTT (66565) 03/09/2020 EGD BIOPSY SINGLE/MULTIPLE (66202) 04/06 ANTI SMOOTH MUSCLE AB(CH-SMOOAB) 03/09 Insurance Providers Payer Name Payer Address Payer Phone Subscriber Number Group Number Insured Name Patient Relationship to Insured Coverage Start Date Coverage End Date MED[place]ARE [place] PART B [address] [facility] JEVON PETTY [id number] Naomy Cervantes Self - patient is the insured [facility] MEDICARE [facility] [address] [place], [place] [id number] Naomy Cervantes Self - patient is the insured Medical (General) History Medical History History ICD Code High blood pressure Surgical History Surgery Date(Month/Year) ankle surgery Hospitalization History Reason Date(Month/Year) childbirth
== END 2024-09-18 11:10 | disposition home or self-care (01) ==
LOC: HO.MRI 11:09
PROVIDERS: PCP Family Medicine; Visit Provider Nurse Practitioner Family
DX: M87.052 Idiopathic aseptic necrosis of left femur (principal); M25.552 Pain in left hip
CPT/HCPCS: 73721

== ENCOUNTER → 2024-09-18 11:10 | Outpatient (BNV) | payer MEDICARE, SELFPAY | PROVIDERS: PCP Family Medicine; Visit Provider Radiology Diagnostic Radiology | DX: M87.052 Idiopathic aseptic necrosis of left femur (principal) | CPT/HCPCS: 73721 ==

== ENCOUNTER 2024-09-30 11:14 | Outpatient (REF) | payer MEDICARE, SELFPAY ==
--- NOTE | ~2024-09-30 | MM_ITS ---
EXAMINATION: DXA BONE DENSITY AXIAL HISTORY: M81.0 - Age-related osteoporosis without current pathological fracture TECHNIQUE: Adwanted Dual energy absorptiometry (DEXA) of the lumbar spine, total left hip, and femoral neck was performed. COMPARISON: There are no prior studies for comparison. FINDINGS: The bone mineral density of the lumbar spine is 1.086 with a T-score of -0.8, and a Z-score of 1.1. This is indicative of normal bone mineral density. The bone mineral density of the left total hip is 0.811 with a T-score of -1.6, and a Z-score of -0.2. This is indicative of osteopenia. The bone mineral density of the left femoral neck is 0.896 with a T-score of -1.0, and a Z-score of 0.6. This is indicative of normal bone mineral density. FRACTURE RISK: The FRAX index suggests a risk of major osteoporotic fracture of 12.1%, and of hip fracture 1.6%. MM/XR DEXA axial skeleton IMPRESSION: Based on bone mineral density, and according to World Health Organization (WHO) criteria, the diagnosis is consistent with osteopenia. All bone density values are in grams per centimeter squared (g/cm2). Statistically, 68% of repeat scans fall within 1 SD (+/- 0.010 g/cm2 for AP spine L1-L4) and 1 SD (+/- 0.012 g/cm2 for femur total) FRAX is a trademark of the [employer]'s [place] for Metabolic Bone Disease, a World Health Organization (WHO) Collaborating Center. Electronically signed by: Royal Shah MD 09/30/2024 12:47 PM EDT
--- NOTE | 2024-09-30 11:58 | EMG_ITS ---
Chief complaint: Lower back pain radiating down to left ankle/foot with numbness in left foot. History of left L5 nerve compression, status post L4-[address] Cooley. History of left hip AVN. History of left ankle fracture status post ORIF. Reason for referral: Evaluate for radiculopathy or neuropathy Referred by: Shira Damon NP Procedure done: Left lower extremity NCS/EMG Precautions and/or limitations: Previous lumbar surgery The limb temperature was monitored continuously and remained between 32-36 degrees C during the performance of the NCS. Nerve Conduction Studies Anti Sensory Summary Table ?Stim Site NR Onset (ms) Norm Onset (ms) Peak (ms) Norm Peak (ms) O-P Amp (?V) Norm O-P Amp Site1 Site2 Delta-0 (ms) Dist (cm) Tiago (m/s) Norm Tiago (m/s) Left Sural Anti Sensory (Lat Mall) Calf ? 3.2 4.0 <4.0 8.2 >5.0 Calf Lat Mall 3.2 14.0 44 Motor Summary Table ?Stim Site NR Onset (ms) Norm Onset (ms) O-P Amp (mV) Norm O-P Amp iAmp (mV) Amp (1st) (%) Site1 Site2 Delta-0 (ms) Dist (cm) Tiago (m/s) Norm Tiago (m/s) Left Peroneal Motor (Ext Dig Brev) Ankle ? 3.8 <4.0 4.6 >2.5 5.4 100.0 Ankle Ext Dig Brev 3.8 0.0 B Fib ? 11.0 3.5 4.2 76.1 B Fib Ankle 7.2 29.5 41 >40 Poplt ? 12.0 4.3 5.4 93.5 Poplt B Fib 1.0 6.0 60 >40 Left Tibial Motor (Abd Mensah Brev) Ankle ? 3.4 <5 21.9 >2.5 30.7 100.0 Ankle Abd Mensah Brev 3.4 0.0 Knee ? 11.5 13.2 17.2 60.3 Knee Ankle 8.1 40.0 49 >40 EMG ?Side Muscle Nerve Root Ins Act Fibs Psw Amp Dur Poly Recrt Int Pat Comment Left AbdHallucis MedPlantar S1-2 Incr 1+ Nml Nml Nml 0 Nml Complete SMALL PSWS Left AntTibialis Dp Br Peron L4-5 Nml Nml Nml Nml Nml 0 Nml Complete Left PostTibialis Tibial L5, S1 Nml Nml Nml Nml Nml 0 Nml Complete DIFFICULT TO TOLERATE Left MedGastroc Tibial S1-2 Nml Nml Nml Nml Nml 0 Nml Complete Left VastusMed Femoral L2-4 Nml Nml Nml Nml Nml 0 Nml Complete Left BicepsFemS Sciatic L5-S1 Incr 1+ Nml Nml Nml 0 Nml Complete SMALL PSWS FINDINGS: All motor and sensory nerves tested showed normal latencies, amplitudes and conduction velocities. Concentric needle EMG was performed in selected muscles of the left lower extremity. Study revealed signs of electric abnormalities as shown in the table above. Could not tolerate needle on left posterior tibialis. Left FDI and short head of biceps femoris showed small PSWs. IMPRESSION: 1. This is an abnormal study. 2. There is electrodiagnostic evidence for chronic left L5-S1 radiculopathy. 3. There is no electrodiagnostic evidence for peroneal neuropathy, tibial neuropathy, lumbosacral plexopathy, or peripheral neuropathy. Thank you for your kind referral. Kay Swenson MD, CELESTE Board Certified, [place] Board of Physical Medicine and Rehabilitation (ABPMR) Board Certified, [place] Board of Electrodiagnostic Medicine (ABEM) [place] [id number] [facility]
== END 2024-09-30 11:15 | disposition home or self-care (01) ==
LOC: HO.MAMMO 11:14
PROVIDERS: Absent Provider Nurse Practitioner Family; PCP Nurse Practitioner Family; Referring Provider Family Medicine; Visit Provider Nurse Practitioner Family
DX: M54.17 Radiculopathy, lumbosacral region (principal); M81.0 Age-related osteoporosis without current pathological fracture; M54.32 Sciatica, left side; Z98.890 Other specified postprocedural states; R20.0 Anesthesia of skin
CPT/HCPCS: 77080; 95860; 95886; 95908

== ENCOUNTER → 2024-09-30 11:30 | Outpatient (BNV) | payer MEDICARE, SELFPAY | PROVIDERS: Absent Provider Nurse Practitioner Family; PCP Nurse Practitioner Family; Referring Provider Family Medicine; Visit Provider Radiology Diagnostic Radiology | DX: E28.39 Other primary ovarian failure (principal) | CPT/HCPCS: 77080 ==

== ENCOUNTER → 2024-09-30 11:58 | Outpatient (BNV) | payer MEDICARE, SELFPAY | PROVIDERS: Absent Provider Nurse Practitioner Family; PCP Nurse Practitioner Family; Referring Provider Family Medicine; Visit Provider Physical Medicine & Rehabilitation | DX: M54.16 Radiculopathy, lumbar region (principal) | CPT/HCPCS: 95886; 95908 ==

== ENCOUNTER 2024-10-14 11:20 | Outpatient (AMB) | payer MEDICARE, SELFPAY ==
--- NOTE | 2024-10-14 11:27 | A.OFFVIS_ITS ---
Vital Signs 10/14/24 11:31 Height 5 ft 4 in Weight 124 lb 4 oz BMI 21.3 BP 169/74 H Blood Pressure Location Rt brachial Position Sitting Pulse 84 Pulse Source Pulse Oximeter Pulse Oximetry (%) 97 Oxygen Delivery Method Room Air Intake Visit Reasons: BONE DENSITY/EMG FOLLOW UPS Intake Note: Pain today 9.5/10 Actuarial Director Required: No Accompanied by: Self / Same As Patient Allergies No Known Allergies Allergy (Verified 10/14/24 11:31) HPI Comments Details: The patient is a 64-year-old female presenting with chronic left hip pain. She has experienced ongoing discomfort in this area after undergoing left L4-L5 decompression surgery in 2022. Her symptoms include shooting pains, numbness, and tingling, aligned with findings of chronic left L5-S1 radiculopathy from a recent EMG. She has upcoming evaluation by Orthopedic for avascular necrosis of the left hip and recent hip MRI. Attempts at physical therapy were unsuccessful in alleviating her discomfort. Additionally, the patient has osteopenia. - Onset and Timing: Chronic back pain, h/o back surgery (2022). Chronic left hip pain. - Quality and Character: Shooting back pain with numbness and tingling. Aching, throbbing left hip. - Primary Location: Low back, left hip - Radiation: Sometimes shoots up to the left side and into the back and shoulders and into left lower leg in L5-S1. - Exacerbating Factors: Movements, walking, bending, climbing stairs, changing positions. - Alleviating Factors: Past attempts at physical therapy, not currently effective. - Activities Affected: Interferes with walking and biking. - Affect: Patient experiences significant discomfort impacting her activities of daily living. - Analgesia: No current pain medications reported. Pain persists at high levels. - Adverse Effects: None reported from past interventions. - Activities of Daily Living: Pain hinders walking and exercising. - Aberrant Drug-Related Behaviors: None reported. PRIOR: The patient is a 64-year-old female presenting with left hip pain. She has a history of left L4-L5 decompression surgery performed in 2022 for sciatica, which successfully alleviated her sciatic and back pain. However, post-surgery, she developed a pinched nerve in her left leg, leading to unresolved left leg pain with numbness and tingling, despite undergoing physical therapy in March- April 2024 with no improvement. 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 Denies previous hip injections or Orthopedic evaluation. Her left hip pain is not constant but occurs intermittently, initiated around the start of winter. Pain radiates to the groin and is exacerbated by certain movements such as squatting and internal or external rotation of the hip. We will proceed with left hip MRI and an EMG of the left lower extremity for further evaluation of current symptoms. The patient will also be advised to consult with Dr. Belcher for an orthopedic evaluation considering her condition of avascular necrosis and hip arthritis. Denies any fever or chills, abdominal pain, weakness, bladder or bowel dysfunction or saddle anesthesia. - Onset and Timing: Pain in the left hip began around the start of winter, with constant lower back pain and intermittent groin discomfort. - Quality and character: Pain in the left hip exacerbated by movements like squatting, getting up from a sitting position, internal and external rotation, and climbing stairs. There is also left buttock pain, left-side lower back pain, and radiating pain down the left leg. - Treatments tried and effect: - L4-L5 decompression surgery performed two years ago alleviated sciatica and back pain but resulted in a pinched nerve causing pain down the left leg. - Physical therapy before the holidays (March-April 2024) did not result in any pain relief. - Current medications include Meloxicam, which the patient reports as ineffective, and Tylenol Arthritis. - Use of a vibrating heating pad for pain relief at home. - Aggravating factors: Movement including getting up from sitting, bending, putting on shoes or socks, and climbing stairs increases pain. Prolonged sitting. - Alleviating factors: Use of a vibrating heating pad has been beneficial for the patient. - Affect: Reports frustration with pain; expressed that pain affects daily activities such as getting dressed, sitting, standing, and walking. - Analgesia: Currently taking Meloxicam and Tylenol Arthritis with limited relief. Previous use of gabapentin, unable to specify the time of use. - Adverse Effects: Reports no side effects from Meloxicam, including no gastrointestinal discomfort. No current report of adverse effects from other medications now. - Activities of Daily Living: Pain affects activities like sitting, standing, dressing, using the toilet, and daily walking. - Aberrant Drug Related Behaviors: No evidence of medication misuse or abuse; does not use alcohol but uses marijuana from a dispensary for pain and sleep. PRIOR: Patient presents today to discuss results of recent lumbar spine MRI. She continues to endorse significant overall back pain that has been coming on as frequent shooting and stabbing pain that radiates down to her legs posteriorly and laterally is numbness and tingling as well as weakness which is worse on the left. She also reports left hip pain with mild left groin pain with weigh tbearing. Patient reports significant pain with walking or prolonged standing, bending or flexing forward. She also reports unable to get adequate sleep due to pain. Patient has been taking NSAIDs around the clock but notices it affects her stomach at times. She also reports neck pain with left sided periscapular stiffness and bilateral trapezius muscle tenderness. Denies any recent cough, cold, infection, fever or other significant changes in medical history since last office visit. Patient denies any bladder or bowel incontinence or saddle anesthesia. PRIOR: Patient is a pleasant 62 years old female with a history of avascular necrosis of left femoral head, presents today for initial evaluation for chronic back pain with radiation to her both legs. Patient denies any recent trauma, injury or falls. She states being seen by an Orthopedic clinic while living in [place] and has received hip injection and physical therapy without pain relief in 2019. Her back pain is axial and also radiates to her left hip, lower back and into her bilateral lower legs laterally and posteriorly, worse on the left. Reports left leg weakness with numbness and tingling. She also has significant pain and t enderness in the projection of the left sacroiliac joint. Pain increases with walking, weight bearing, and changing positions. Patient has been taking diclofenac potassium 50 mg TID prn and admits taking this more than prescribed in a day due to severe pain. 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 Patient reports she currently does not have a car and has been walking to work 3 times a week and also babysits her grandkids. Patient reports increase in pain by nighttime and pain has been progressively worse since last summer. Denies any fever, weight loss, abdominal pain, bladder or bowel incontinence or saddle anesthesia. Location Chronic low back pain with radiation to legs Duration Chronic, worsening for past 8 months Characteristics of symptom or complaint Pulsing, throbbing, shooting, stabbing, sharp, aching, sore, heavy Aggravating or associated factors Walking, weight bearing, changing positions, prolonged standing or sitting Relieving factors Rest, heat therapy, NSAIDs, activity modification Treatment PT and left hip injection in 2019 -no pain relief, no function improvement PFSH Medical History EtOH dependence Heart murmur High blood pressure Surgical History History of lumbar laminectomy Hx of bilateral cataract extraction Hx of tonsillectomy History of ankle surgery History of eye surgery Family History Mother Breast cancer Sister Breast cancer Father Diabetes Other Substance use disorder Social History Household Members Other:: adult son Housing: Apartment Are you a primary healthcare market consultant to a significant other at home: No Do you presently have visiting nurse or other home services: No Alcohol intake: never Comment: all counts correct Patient Tobacco Use Status: Current everyday Tobacco user Tobacco use type: Cigarette Cigarette Packs Per Day: 0.7 Cigarettes Per Day: 8 Years Smoked: 10 e-Cigarette/Vaping Use: Never Used Second Hand Smoke Exposure: Yes Substance Use Type: Marijuana service: No Current occupational status: disabled 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 Alert and oriented. Mood and affect appropriate. Follows and participates in conversation appropriately. Respiratory effort is unlabored. No cough. Able to transition from sit to stand unassisted. Antalgic gait with limping. Difficulty getting up from sitting to standing, experiences pain. General: Yes no CVA tenderness Back/Spine/Pelvis Other: Limited lumbar ROM due to pain. Lumbar flexion is intact and reproduces mild to moderate symptoms, lumbar extension reproduces moderate pain. Demonstrates 5/5 right and 4/5 left due to pain strength of quadriceps bilaterally as well as flexion/dorsiflexion of bilateral feet against resistance. 2+ pedal pulses bilaterally. Straight leg rise with dorsiflexion negative bilaterally. +1 patellar and achilles reflexes bilaterally. Facet loading test positive bilaterally. Kennedy sign, Quan?s reproduces left buttock, back, lateral hip and groin pain, Gaenslen, Pelvic compression and Stinchfield tests are positive on the left. Moderate groin pain with left I/E hip rotations. Valsalva maneuver negative. Back: no CVA tenderness Cervical Spine: cervical muscular tenderness, pain with cervical ROM and No Cervical spine tenderness Thoracic/Lumbar Spine: thoracic and lumbar spine normal to inspection, Lasegue's sign positive on the left, pain with thoraco-lumbar ROM, paraspinal muscle tenderness, thoraco-lumbar ROM limited, No thoracic spinal tenderness and lumbar spinal tenderness Pelvis: buttock tenderness on the left Sacroiliac joints: bilaterally (left>right) tender to palpation Extrem General: Yes capillary refill normal, Yes no clubbing, cyanosis or edema and Yes no calf tenderness Results Reviewed Results Reviewed: XR HIP, LEFT 07/20/24 CLINICAL INFORMATION: M87.052 - Idiopathic aseptic necrosis of left femur COMPARISON: 07/29/2022. TECHNIQUE: Two views of the left hip. FINDINGS: No fracture, dislocation, or malalignment. Geographic sclerosis of the subchondral left femoral head again noted consistent with AVN. There is no evidence of subchondral collapse or articular surface irregularity. Finding appears stable from prior. Mild degenerative arthritis left hip joint. Remainder the bony structures are intact. Degenerative changes of the left SI joint and lower lumbar spine. No discrete soft tissue abnormality. IMPRESSION: 1. Stable AVN left femoral head without subchondral collapse. 2. Stable mild degenerative arthrosis left hip joint. NE electromyogram (EMG); NE nerve conduction velocity 09/30/24 FINDINGS: All motor and sensory nerves tested showed normal latencies, amplitudes and conduction velocities. Concentric needle EMG was performed in selected muscles of the left lower extremity. Study revealed signs of electric abnormalities as shown in the table above. Could not tolerate needle on left posterior tibialis. Left FDI and short head of biceps femoris showed small PSWs. IMPRESSION: 1. This is an abnormal study. 2. There is electrodiagnostic evidence for chronic left L5-S1 radiculopathy. 3. There is no electrodiagnostic evidence for peroneal neuropathy, tibial neuropathy, lumbosacral plexopathy, or peripheral neuropathy. Assessment & Plan Assessment & Plan (1) Lumbar radiculopathy: Code(s): M54.16 - Radiculopathy, lumbar region Category: Medical (2) Lumbar and sacral spondyloarthritis: Code(s): M47.817 - Spondylosis without myelopathy or radiculopathy, lumbosacral region Category: Medical (3) Sacroiliac joint pain: Code(s): M53.3 - Sacrococcygeal disorders, not elsewhere classified Category: Medical (4) Left hip pain: Code(s): M25.552 - Pain in left hip Category: Medical (5) Avascular necrosis of left femoral head: Code(s): M87.052 - Idiopathic aseptic necrosis of left femur Category: Medical Plan We will pursue further imaging to evaluate chronic left hip pain associated with L5-S1 radiculopathy and prior back surgery. Guidance includes arranging follow- up with orthopedics to address potential avascular necrosis concerns with Orthopedic follow up on 10/28/24. Lumbar MRI will be arranged to evaluate neural integrity and compression, and confirm left L5-S1 radiculopathy. Continue gabapentin. Vitamin D and calcium supplementation is advised for osteopenia management and follow up with PCP. The patient's biking activity is to remain restricted until further evaluation by Orthopedics. All questions and concerns have been answered and patient agreed with the plan. Follow up for MRI results and sooner as needed. Patient was informed and verbally consented to the use of an ambient scribe for clinic note documentation during this visit. Orders: Orders MR lumbar spine wo con Today M48.061 - Spinal stenosis, lumbar region without neurogenic claudication, M54.16 - Radiculopathy, lumbar region, M54.32 - Sciatica, left side Patient Instructions: I discussed with the patient the findings of her recent EMG, indicating chronic L5-S1 radiculopathy, and the potential overlap with her left hip avascular necrosis. We reviewed the need for further imaging of the back and emphasized a pending Orthopedic evaluation to address potential concerns about avascular necrosis progressing. Additional instruction included vitamin D and calcium supplementation for osteopenia, with the restriction of biking until after orthopedic guidance. - Follow up with orthopedics as scheduled in two weeks. - Repeat MRI of the back as advised. - Begin taking vitamin D and calcium supplements daily. - Refrain from biking activities until Orthopedic follow up. - Monitor symptoms and report any worsening pain or new symptoms promptly. Coding Level of Care Code Est Pt Level 4 (05773) Complex EM visit Add On G2211 Diagnoses Lumbar radiculopathy M54.16 Lumbar and sacral spondyloarthritis M47.817 Sacroiliac joint pain M53.3 Left hip pain M25.552 Avascular necrosis of left femoral head M87.052
[2024-10-14 11:31] VITALS: BP 169/74; PULSE 84; O2SAT 97; BMI 21.3
== END 2024-10-14 11:52 | disposition home or self-care (01) ==
LOC: HO.PMC 11:21
PROVIDERS: PCP Nurse Practitioner Family; Visit Provider Nurse Practitioner Family
DX: M54.16 Radiculopathy, lumbar region (principal); M47.817 Spondylosis without myelopathy or radiculopathy, lumbosacral region; M53.3 Sacrococcygeal disorders, not elsewhere classified; M25.552 Pain in left hip; M87.052 Idiopathic aseptic necrosis of left femur
CPT/HCPCS: 99214; G2211

== ENCOUNTER → 2024-10-14 11:20 | Outpatient (BNVA) | payer MEDICARE, SELFPAY | PROVIDERS: PCP Nurse Practitioner Family; Visit Provider Nurse Practitioner Family | DX: M47.27 Other spondylosis with radiculopathy, lumbosacral region (principal); M53.3 Sacrococcygeal disorders, not elsewhere classified; M25.552 Pain in left hip; M87.052 Idiopathic aseptic necrosis of left femur; M48.061 Spinal stenosis, lumbar region without neurogenic claudication; M54.32 Sciatica, left side | CPT/HCPCS: 99212 ==

== ENCOUNTER → 2024-10-22 15:35 | Outpatient (BNV) | payer MEDICARE, SELFPAY | PROVIDERS: PCP Family Medicine; Visit Provider Radiology Diagnostic Radiology | DX: M54.16 Radiculopathy, lumbar region (principal) | CPT/HCPCS: 72158 ==

== ENCOUNTER 2024-10-22 15:36 | Outpatient (REF) | payer MEDICARE, SELFPAY ==
--- NOTE | ~2024-10-22 | MR_ITS ---
EXAMINATION: MR LUMBAR SPINE WITH AND WITHOUT CONTRAST CLINICAL INFORMATION: Lumbar radiculopathy. Patient states back pain traveling into left lower extremity. History of L-spine surgery at L4-5 in 07/2022. COMPARISON: 11/27/2022. TECHNIQUE: Multiplanar multisequence MR imaging of the lumbar spine was both before and after the administration of 5.5 mL IV Gadavist. Examination was performed on a 1.5 Rita Siemens magnet, utilizing standard sequences. FINDINGS: CORONAL ALIGNMENT: -Normal. SAGITTAL ALIGNMENT: - Normal lordosis. -There is a 2 mm degenerative type anterolisthesis of L2 on L3. -There is a 3 mm degenerative retrolisthesis of L4 on L5. LUMBOSACRAL JUNCTION: -Normal. There are 5 [id number] lumbar-type vertebral bodies. VERTEBRAL BODIES/BONE MARROW: -There are no compression deformities or fractures. There is no gross bone marrow edema, or abnormal infiltrating bone marrow signal. There are a few scattered Schmorl's nodes in the endplates particularly at L4-5. DISCS: -Mild loss of disc height and signal spanning L2-L4, with moderate loss at L4-5 and L5-S1. SPINAL CANAL: -No abnormal developmental findings. CONUS MEDULLARIS: -Terminates at superior endplate of L2. Morphology and signal is normal. INTRADURAL NERVE ROOTS: - Within normal limits. Axial Disc Space Images: T12-L1: Mild facet hypertrophy bilaterally. No central canal or significant neural foraminal narrowing. No change. L1-L2: Mild facet hypertrophy bilaterally. No central canal or significant neural foraminal narrowing. No change. L2-L3: There is a shallow disc bulge present, with superimposed right greater than left foraminal disc protrusions. There are moderate hypertrophic degenerative facet changes bilaterally with posterior ligamentous thickening/infolding. Combination of findings is resulting in mild to moderate central canal stenosis, mild to moderate bilateral subarticular recess stenosis, moderate right and [id number] left neural foraminal stenosis. No significant interval change. L3-L4: There is a shallow disc bulge present with superimposed left greater than right foraminal disc protrusions. There are moderate hypertrophic degenerative facet changes bilaterally with posterior ligamentous thickening/infolding. The findings are resulting in mild to moderate central canal stenosis, mild to moderate bilateral subarticular recess stenosis, and moderate to severe left and moderate right neural foraminal stenosis. There is similar encroachment upon the exiting left L3 root. No significant interval change L4-L5: There has been a left hemilaminotomy and microdiscectomy. There is a persistent or recurrent diffuse disc bulge with a superimposed left paracentral and lateral extrusion of disc material with mild inferior migration. The extruded fragment measures approximately 6 x 11 x 13 mm (AP, TRV, CC). Coupled with mild to moderate hypertrophic degenerative facet changes, the findings are resulting in moderate central canal stenosis, severe left subarticular recess stenosis, with mass effect/impingement of the traversing left L5 nerve root. There is moderate left and mild to moderate right neural foraminal narrowing. Compared with the prior examination, the extruded fragment appears slightly larger than previously. L5-S1: Small central disc protrusion with annular fissuring. No significant central canal or neural foraminal narrowing. Mild hypertrophic facet changes right greater than left. No change. IMAGED SI JOINTS: -Mild degenerative arthrosis bilaterally. PARAVERTEBRAL AND INCLUDED EXTRASPINAL SOFT TISSUES: -There are bilateral small renal cysts present. The aorta is normal in caliber. No adenopathy or mass. OTHER: AVN of both femoral heads noted on the hinging machine operator sequence. MR/MR lumbar spine wo/w con IMPRESSION: 1. There has been left hemilaminotomy and microdiscectomy at L4-5. There is an either recurrent or residual left paracentral and lateral extrusion of disc material at this level which is causing moderate central canal stenosis and severe left subarticular recess stenosis, with impingement and mass effect upon the traversing left L5 nerve root. 2. Additional findings of spondylosis which are stable as described above. Scattered neural foraminal narrowings as detailed, worst at L3-4 on the left. 3. AVN of both femoral heads noted on the hinging machine operator sequence. Electronically signed by: Elijah Ramsay MD 10/25/2024 01:11 PM EDT
[2024-10-22] MEDS: gadobutroL 7.5 ML VIAL IVPUSH (16:14)
== END 2024-10-22 15:37 | disposition home or self-care (01) ==
LOC: HO.MRI 15:36
PROVIDERS: PCP Family Medicine; Visit Provider Nurse Practitioner Family
DX: M54.16 Radiculopathy, lumbar region (principal); M48.061 Spinal stenosis, lumbar region without neurogenic claudication; M54.50 Low back pain, unspecified; Z98.890 Other specified postprocedural states
CPT/HCPCS: 72158; A9585

== ENCOUNTER 2024-10-28 09:43 | Outpatient (AMB) | payer MEDICARE, SELFPAY ==
[2024-10-28 09:45] VITALS: BMI 21.3
--- NOTE | 2024-10-28 09:45 | A.OFFVIS_ITS ---
Vital Signs 10/28/24 09:45 Height 5 ft 4 in Weight 124 lb BMI 21.3 Intake Visit Reasons: OV - Left Hip AVN Intake Note: Naomy is a 64 year old female who presents today for a follow up of her left hip pain. She was last seen in 2022 when we referred her to Pain Management for lumbar radiculopathy. She was referred back to discuss Left Avascular necrosis concerns. Patient reports that her pain is felt along the buttock and radiates up the back and down the leg to her foot. The hip has given out on her and caused her to fall MRI of the hips 09/18/24 IMPRESSION: Ficat and Danika classification Stage II/stage III avascular necrosis, left hip and stage II, right hip. Hx of left L4-5 decompression 05/20/[address] Cooley. Allergies No Known Allergies Allergy (Verified 10/28/24 09:48) HPI HPI OV - Left Hip AVN: Details: The patient is a 64-year-old female presenting with hip pain and lumbar radiculopathy. The hip pain is chronic, with occasional episodes of instability noted on stairs. Pain radiates down the posterior aspect of the leg to the foot, with associated burning, numbness, and tingling. No significant groin pain, only infrequent, minor discomfort. She states she is able to walk for extended distances but pays for it afterwards with radiating left leg pain. She had spine surgery about 2 years ago. She had a left L4-5 Laminotomy, Partial facetectomy and foraminotomy. She states this pain is similar to the prior pain but worse. [facility] History EtOH dependence Heart murmur High blood pressure Surgical History History of lumbar laminectomy Hx of bilateral cataract extraction Hx of tonsillectomy History of ankle surgery History of eye surgery Family History Mother Breast cancer Sister Breast cancer Father Diabetes Other Substance use disorder Social History Household Members Other:: adult son Housing: Apartment Are you a primary health care legal assistant to a significant other at home: No Do you presently have visiting nurse or other home services: No Alcohol intake: never Comment: all counts correct Patient Tobacco Use Status: Current everyday Tobacco user Tobacco use type: Cigarette Cigarette Packs Per Day: 0.7 Cigarettes Per Day: 8 Years Smoked: 10 e-Cigarette/Vaping Use: Never Used Second Hand Smoke Exposure: Yes Substance Use Type: Marijuana service: No Current occupational status: disabled 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 She has no groin pain with hip range of motion. Negative impingement test. Negative Stinchfield. Normal gait. Results Reviewed Results Reviewed: I personally reviewed the MR images. Ficat and Danika classification Stage II/stage III avascular necrosis, left hip and stage II, right hip. Lumbar spine MRI: 1. There has been left hemilaminotomy and microdiscectomy at L4-5. There is an either recurrent or residual left paracentral and lateral extrusion of disc material at this level which is causing moderate central canal stenosis and severe left subarticular recess stenosis, with impingement and mass effect upon the traversing left L5 nerve root. 2. Additional findings of spondylosis which are stable as described above. Scattered neural foraminal narrowings as detailed, worst at L3-4 on the left. Assessment & Plan Assessment & Plan (1) Avascular necrosis of bone of left hip: Comment: noted on xray 2022 Code(s): M87.052 - Idiopathic aseptic necrosis of left femur Category: Medical Plan: Bilateral avascular necrosis of the femoral heads without collapse. Clinically she is minimally symptomatic. Her primary problem is likely neurogenic. I recommend a referral to our spine colleagues. I did discuss her hips in depth in terms of what to expect in the future and I think it is likely that at some point there will be collapse but at this point she is doing well given the MRI findings in her hips. I will coordinate a referral to neuro spine and she can see me for hips on an as-needed basis. Coding Level of Care Code Est Pt Level 4 (18081) Diagnoses Avascular necrosis of bone of left hip M87.052
== END 2024-10-28 10:23 | disposition home or self-care (01) ==
LOC: HO.HOS 09:43
PROVIDERS: PCP Family Medicine; Visit Provider Orthopaedic Surgery
DX: M87.052 Idiopathic aseptic necrosis of left femur (principal)
CPT/HCPCS: 99214

== ENCOUNTER → 2024-10-28 09:43 | Outpatient (BNVA) | payer MEDICARE, SELFPAY | PROVIDERS: PCP Family Medicine; Visit Provider Orthopaedic Surgery | DX: M87.052 Idiopathic aseptic necrosis of left femur (principal) | CPT/HCPCS: 99212 ==

== ENCOUNTER 2024-11-01 12:42 | Outpatient (AMB) | payer MEDICARE, SELFPAY ==
--- NOTE | 2024-11-01 13:12 | A.SPINEOV_ITS ---
Intake Visit Reasons: surgical discussion Intake Note: Ms. Cervantes is here today to discuss surgery. Ingot Stripper Required: No Allergies No Known Allergies Allergy (Verified 10/28/24 09:48) Assessment & Plan Assessment & Plan (1) S/P lumbar laminectomy: Code(s): Z98.890 - Other specified postprocedural states Category: Surgical Plan Mrs Cervantes is here in follow-up. This is a patient who underwent a left L4-5 hemilaminotomy in 2022. She was doing okay after surgery but then maybe a year ago so she started to notice recurrence of symptoms. She went through physical therapy, was trialed on meloxicam but unfortunately the symptoms were not improving. She saw Dr. 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 Her symptoms were radicular in nature and did not fit the classic symptoms of avascular necrosis so he referred her back to us. She tells me that she is in daily near constant pain shooting down her left leg into her calf and foot. It is very similar to what she had before her surgery. As above she tried some conservative management. She still continues to work on her feet all day doing check out. She is quite uncomfortable and is looking to see if there is anything we can do to help her. Her MRI done at [place] just a few weeks ago shows recurrent herniated disc on the left at L4-5. I went back and looked at Dr. Cooley last note with the patient and his operative note suggests that there some instability and that she would be high risk for fusion if something recurred. I reviewed with her the procedure he generally chooses which would be a transforaminal lumbar interbody fusion for recurrent herniated disc. We went over the risks, benefits etc.. Right now she is dealing with a very difficult home life situation. She has an alcoholic son in her house and she tells me it would not be optimal for her to recover in this environment. She is currently looking into getting t the situation resolved. I will review everything with Dr. Cooley and get back to her with the plan. In the meantime she is going to look into a better recovery situation. Temp ability Coding Level of Care Code Est Pt Level 3 (65105) Diagnoses S/P lumbar laminectomy Z98.890
== END 2024-11-01 14:40 | disposition home or self-care (01) ==
LOC: HO.HNS 12:43
PROVIDERS: PCP Family Medicine; Visit Provider Physician Assistant
DX: Z98.890 Other specified postprocedural states (principal)
CPT/HCPCS: 99213

== ENCOUNTER → 2024-11-01 12:42 | Outpatient (BNVA) | payer MEDICARE, SELFPAY | PROVIDERS: PCP Family Medicine; Visit Provider Physician Assistant | DX: M79.662 Pain in left lower leg (principal); M79.672 Pain in left foot; Z98.890 Other specified postprocedural states | CPT/HCPCS: 99212 ==

== ENCOUNTER 2024-11-24 18:42 | Emergency (ER) | payer MEDICARE, SELFPAY ==
[2024-11-24 19:37] VITALS: BP 185/89; PULSE 60; RESP 18; TEMP 36.9; O2SAT 100; BMI 20.6
--- NOTE | 2024-11-24 19:42 | ED.GENADULT ---
HPI - General Adult General Chief complaint: Back Pain/Injury Stated complaint: back pain Time Seen by Provider: 11/25/24 00:29 Source: patient Mode of arrival: ambulatory Limitations: no limitations History of Present Illness ED Provider: HPI narrative: Patient has chronic low back pain status post hemilaminotomy were 60 years ago repeat MRI done on 10/22/2024 showed significant lumbar canal stenosis with impingement of the now L5 in the left side with mass effect patient is supposed to have another surgery in future unable to get her gabapentin comes here with increased pain unable to sleep or work for last 2 3 days no recent fall or injury no bladder or bowel involvement no loss of sensation doxycycline Related Data Previous Rx's ?Medication ?Instructions ?Recorded lisinopril 20 mg tablet 20 mg PO DAILY 90 days #90 tabs 01/21/24 gabapentin 300 mg capsule 300 mg PO TID pain 30 days #90 caps 11/25/24 meloxicam 15 mg tablet 15 mg PO DAILY PRN pain (scale 11/25/24 score 4-6) #30 tabs morphine 15 mg tablet,extended 15 mg PO Q8H PRN pain (scale score 11/25/24 release 7-10) 3 days #9 tabs Allergies Allergy/AdvReac Type Severity Reaction Status Date / Time No Known Allergies Allergy Verified 11/24/24 19:37 Review of Systems Review of Systems: Yes all other systems are reviewed and are negative [facility] Past Medical History Medical History EtOH dependence Heart murmur High blood pressure Surgical History History of lumbar laminectomy Hx of bilateral cataract extraction Hx of tonsillectomy History of ankle surgery History of eye surgery Family History Family History Mother Breast cancer Sister Breast cancer Father Diabetes Other Substance use disorder Social History Social History Household Members Other:: adult son Housing: Apartment Are you a primary critical care transport nurse to a significant other at home: No Do you presently have visiting nurse or other home services: No Alcohol intake: never Comment: all counts correct Patient Tobacco Use Status: Current everyday Tobacco user Tobacco use type: Cigarette Cigarette Packs Per Day: 0.7 Cigarettes Per Day: 8 Years Smoked: 10 Smoked in Last 30 Days: No e-Cigarette/Vaping Use: Never Used Second Hand Smoke Exposure: Yes Use of substances other than those prescribed or required for medical reasons: No Substance Use Type: Marijuana Advance Directives: No Advance Directives Information Provided: No service: No Current occupational status: disabled 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 Oriented X3. In moderate distress. Eyes: No pallor or icterus ENT: Pharynx normal. Oral Mucosa moist Neck: Normal inspection. Neck supple. CVS: Normal heart rate and rhythm. Pulses normal. Respiratory: No respiratory distress. Equal air entry bilateral, no wheezing/rales/rhonchi Abdomen: Soft and nontender. Bowel sounds are present, no mass palpable, no CVA tenderness Back: Diffuse paraspinal tenderness specially in the left side SLR positive at 45 degrees left side neurovascular intact Skin: Skin warm and dry. Normal skin color. Normal skin turgor. Extremities: No lower extremity edema. No calf tenderness Neuro: Oriented X 3. No motor deficit. No sensory deficit.No cerebellar signs , cranial nerves II-XII intact Course Course Course Narrative: RME: 64 yold female with history of severe lumbar spine stenosis by MRI and he does need surgery presents to ED for back pain exacerbation with numbness/tingling lower extremities. Patient denies any urinary/bowel incontinence, or numbness of genital area. Patient needs pain meds. Reevaluation(s) Reevaluation #1: 11/25/24 1028 JEVON Phipps Patient contacted the ED stating that [facility] [place]) is unable to fill her morphine prescription as they do not have it in stock. She is requesting to have her morphine and walks a cam sent to [facility] in [place] instead. I electronically canceled both prescriptions. I reached out to pharmacy staff (Hola) at [facility] who confirmed that these prescriptions have been canceled and were not filled by the patient. Recent both of these prescriptions to [facility]. Medications Administered Discontinued Medications Generic Name Dose Route Start Last Admin Trade Name Freq PRN Reason Stop Dose Admin Morphine Sulfate 15 mg 11/25/24 00:53 11/25/24 01:04 Morphine Sulfate Immed Release 15 Mg Tablet PO 11/25/24 00:54 15 mg ONCE ONE Administration Medical Decision Making Medical Decision Making [facility] Narrative: Patient has chronic low back pain status post hemilaminotomy were 60 years ago repeat MRI done on 10/22/2024 showed significant lumbar canal stenosis with impingement of the now L5 in the left side with mass effect patient is supposed to have another surgery in future unable to get her gabapentin which was not working before will give her morphine tablets advised to follow with pain clinic/neuro spine surgeon Differential Diagnosis Differential Diagnoses: The differential diagnosis associated with the presentation includes Discharge Plan Discharge Clinical Impression: Lumbar canal stenosis, Left lumbar radiculopathy Patient Disposition: Home, Self-Care Instructions: Lumbar Radiculopathy (ED), Back Pain (ED) Additional Instructions: Take pain medication as prescribed follow up with your neuro military equipment specialist Prescriptions: New morphine 15 mg tablet extended release 15 mg PO Q8H PRN (Reason: pain (scale score 7-10)) 3 Days Qty: 9 0RF Rx Instructions: Partial Fill upon patient request. meloxicam 15 mg tablet 15 mg PO DAILY PRN (Reason: pain (scale score 4-6)) Qty: 30 0RF No Action lisinopril 20 mg tablet 20 mg PO DAILY 90 Days Qty: 90 3RF gabapentin 300 mg capsule 300 mg PO TID 30 Days Qty: 90 3RF Interventions: ED Discharge Assessment Last Done: 11/25/24 01:11 Discharge Date/Time: 11/25/24 01:12 Print Language: Bhutanese
[2024-11-25] MEDS: Morphine Sulfate Immed Release 15 MG TABLET PO (01:04)
[2024-11-25 01:07] VITALS: BP 159/87; PULSE 82; RESP 20; TEMP 36.1; O2SAT 98
[2024-11-25 01:11] VITALS: BP 159/87; PULSE 82; RESP 20; TEMP 36.1; O2SAT 98
--- NOTE | 2024-11-25 01:11 | PC.NURSE ---
medicated per mar, reviewed discharge instructions with pt. pt verbalized understanding, no sign of distress.
== END 2024-11-25 01:12 | disposition home or self-care (01) ==
PROVIDERS: Emergency Provider Internal Medicine; PCP Family Medicine
DX: M54.16 Radiculopathy, lumbar region (principal)
CPT/HCPCS: 99283; 99284

== ENCOUNTER 2024-11-30 09:26 | Outpatient (REF) | payer MEDICARE, SELFPAY ==
[2024-11-30 11:42] LABS: Appearance Urine Turbid; Color Urine Dark Yellow; Glucose Urine UA Negative (Negative); Leukocyte Esterase Urine Moderate (2+) (Negative); Nitrite Urine Negative (Negative); Specific Gravity - Urine 1.025 (1.005-1.025); UMIC TRIGGER UA YES; Urine Blood Negative (Negative); Urine Ketones Trace mg/dL (Negative); Urine Protein Trace mg/dL (Neg-Trace)
[2024-11-30 11:52] LABS: Bacteria Urine 4+ (None Seen); RBC Urine 0-2 /HPF (0-2); Squamous Epithelial Cell Urine >20 /HPF (0-2)
[2024-11-30 12:09] LABS: Alanine Aminotransferase 11 U/L (0-31); Albumin Level 4.2 g/dL (3.5-5.0); Alkaline Phosphatase 68 U/L (39-117); Anion Gap 10 (12-20); Aspartate Amino Transferase 23 U/L (5-31); Bilirubin Total 0.2 mg/dL (0.0-1.0); Blood Urea Nitrogen 16 mg/dL (9-16); Calcium 9.5 mg/dL (8.4-10.2); Carbon Dioxide 27 mmol/L (22-29); Chloride 109 mmol/L (96-108); Cholesterol 179 mg/dL (<200); Estimated Glomerular Filt Rate 58; Glucose Fasting 75 mg/dL (60-99); HDL Cholesterol 44 mg/dL (>40); LDL Cholesterol Calculated 118 mg/dL (<100); Potassium 4.4 mmol/L (3.3-5.1); Sodium 142 mmol/L (135-145); Total Protein 6.7 g/dL (6.5-8.0); Triglycerides 89 mg/dL (<150)
== END 2024-11-30 09:27 | disposition home or self-care (01) ==
LOC: HO.WFDLDS 09:26
PROVIDERS: Visit Provider Family Medicine
DX: Z00.00 Encounter for general adult medical examination without abnormal findings (principal); E78.00 Pure hypercholesterolemia, unspecified; R74.8 Abnormal levels of other serum enzymes
CPT/HCPCS: 36415; 80053; 80061; 81001

== ENCOUNTER 2024-12-07 08:38 | Outpatient (AMB) | payer MEDICARE, SELFPAY ==
--- NOTE | 2024-12-07 08:43 | MHC.PC.OV ---
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 Also following up on bone density test and colonoscopy results if available. Labs drawn 11/30/24. Reviewed labs with pt. Triglycerides 89. TC 179. LDL 118. HDL 44. 4+ urine bacteria seen. Liver enzymes improved - AST from 43 to 23, ALT 11. BP today 110/70, 73p. She is on lisinopril 20mg daily. Bone density test 09/30/24 shows osteopenia. [facility], [facility] Medical History EtOH dependence Heart murmur High blood pressure Surgical History History of lumbar laminectomy Hx of bilateral cataract extraction Hx of tonsillectomy History of ankle surgery History of eye surgery Family History Mother Breast cancer Sister Breast cancer Father Diabetes Other Substance use disorder Social History Household Members Other:: adult son Housing: Apartment Are you a primary client care representative to a significant other at home: No Do you presently have visiting nurse or other home services: No Alcohol intake: never Comment: all counts correct Patient Tobacco Use Status: Current everyday Tobacco user Tobacco use type: Cigarette Cigarette Packs Per Day: 0.7 Cigarettes Per Day: 8 Years Smoked: 10 e-Cigarette/Vaping Use: Never Used Second Hand Smoke Exposure: Yes Substance Use Type: Marijuana service: No Current occupational status: disabled 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 Royal George, Niki Huff, Donald Geller and colleagues, with an educational jeison from [employer]. Review of Systems Const Denies chills, Denies fatigue, Denies fever(s), Denies headache(s) and Denies weakness ENT Denies dizziness and Denies headache(s) Card Denies dyspnea Resp Denies cough, Denies dyspnea, Denies wheezing and Denies other (shortness of breath) Musc Denies numbness and Denies tingling Neuro Denies dizziness, Denies headache(s), Denies numbness, Denies tingling and Denies weakness Psych Denies anxiety and Denies depression Endo Denies fatigue Aller/Immun Denies wheezing Physical exam (Primary Care) Vital Signs: Last Vital Signs Temp 98.6 F 12/07/24 08:45 Pulse 73 12/07/24 08:45 Resp 16 12/07/24 08:45 BP 110/70 12/07/24 08:45 Pulse Ox 96 12/07/24 08:45 Oxygen Delivery Method Room Air 12/07/24 08:45 BMI result Body Mass Index 21.8 Tobacco/Smoking Status: Tobacco use Status Tobacco use date assessed 08/31/24 12/07/24 08:48 Patient Tobacco Use Status Current everyday Tobacco 12/07/24 08:48 Tobacco use type Cigarette 12/07/24 08:48 e-Cigarette/Vaping Use Never Used 12/07/24 08:48 Thrive Assessment: Date of Thrive Assessment Date Thrive assessed 08/31/24 12/07/24 08:48 Const General: well developed; No acute distress Nutritional Appearance: well nourished Orientation/consciousness: patient oriented x3 HENMT Head: Yes normocephalic and Yes atraumatic Eyes General: appearance normal, both eyes and all related structures Pupils: Equal, round and reactive pupils present EOM: EOMs intact bilaterally Resp Effort & Inspection: normal respiratory effort Neuro General: patient oriented x3 and gait normal Cranial nerves: Yes Equal, round and reactive pupils present Psych Affect: normal affect Coding Level of Care Code Est Pt Level 4 (63265) Diagnoses Primary hypertension I10 Hypertension type: primary hypertension Elevated LDL cholesterol level E78.00 Elevated liver enzymes R74.8 Osteopenia M85.80 Back pain M54.9 Smoker F17.200 Screening for colon cancer Z12.11 Assessment & Plan Assessment & Plan (1) Hypertension: Code(s): I10 - Essential (primary) hypertension Category: Medical Qualifiers: Hypertension type: primary hypertension Qualified Code(s): I10 - Essential (primary) hypertension Plan: Blood?pressure?is?well?controlled.??Goal?is?less?than?140/90 Continue?lisinopril?as?prescribed (2) Elevated LDL cholesterol level: Code(s): E78.00 - Pure hypercholesterolemia, unspecified Category: Medical Plan: LDL?cholesterol?is?still?elevated Encouraged?improved?diet?and?lifestyle?changes (3) Elevated liver enzymes: Code(s): R74.8 - Abnormal levels of other serum enzymes Category: Medical Plan: Liver?enzymes?back?within?normal?range (4) Osteopenia: Code(s): M85.80 - Other specified disorders of bone density and structure, unspecified site Category: Medical Plan: Encouraged?good?sources?of?calcium,?vitamin-D?and?weight-bearing?exercise Encouraged?Smoking?cessation (5) Back pain: Code(s): M54.9 - Dorsalgia, unspecified Category: Medical Plan: Ongoing?severe?back?pain?and?followed?by?pain?management Difficulty?falling?asleep?due?to?pain Increased?her?gabapentin (6) Smoker: Code(s): F17.200 - Nicotine dependence, unspecified, uncomplicated Category: Social Hx Plan: start?nicotine?patches Had?been?referred?for?low-dose?CT?screening?and?she?has?not?gotten?the?scheduled?yet?but?I?encouraged?her?to?do?so (7) Screening for colon cancer: Code(s): Z12.11 - Encounter for screening for malignant neoplasm of colon Category: Medical Plan: Has?1st?appointment?with?Gastroenterology?scheduled Orders: Referrals Dermatology Referral D48.5 - Neoplasm of uncertain behavior of skin Medications: New nicotine 1 patch transdermal DAILY 28 ea 3RF 28 days Changed From gabapentin 300 mg PO TID 30 days 90 caps 3RF pain M25.552 - Pain in left hip, M54.16 - Radiculopathy, lumbar region, M54.32 - Sciatica, left side, R20.0 - Anesthesia of skin, R20.2 - Paresthesia of skin, Z98.890 - Other specified postprocedural states To gabapentin 400 mg PO QID 120 caps 3RF pain 30 days M25.552 - Pain in left hip, M54.16 - Radiculopathy, lumbar region, M54.32 - Sciatica, left side, R20.0 - Anesthesia of skin, R20.2 - Paresthesia of skin, Z98.890 - Other specified postprocedural states
[2024-12-07 08:45] VITALS: BP 110/70; PULSE 73; RESP 16; TEMP 37; O2SAT 96; BMI 21.8
== END 2024-12-07 09:27 | disposition home or self-care (01) ==
LOC: HO.HMCFM 08:39
PROVIDERS: PCP Family Medicine; Visit Provider Family Medicine
DX: I10 Essential (primary) hypertension (principal); E78.00 Pure hypercholesterolemia, unspecified; R74.8 Abnormal levels of other serum enzymes; M85.80 Other specified disorders of bone density and structure, unspecified site; M54.9 Dorsalgia, unspecified; F17.200 Nicotine dependence, unspecified, uncomplicated; Z12.11 Encounter for screening for malignant neoplasm of colon

== ENCOUNTER → 2024-12-07 08:38 | Outpatient (BNVA) | payer MEDICARE, SELFPAY | PROVIDERS: PCP Family Medicine; Visit Provider Family Medicine | DX: I10 Essential (primary) hypertension (principal); E78.00 Pure hypercholesterolemia, unspecified; R74.8 Abnormal levels of other serum enzymes; M85.80 Other specified disorders of bone density and structure, unspecified site; M54.9 Dorsalgia, unspecified; F17.200 Nicotine dependence, unspecified, uncomplicated; Z71.6 Tobacco abuse counseling | CPT/HCPCS: 99212 ==

== ENCOUNTER 2025-01-04 05:58 | Inpatient (IN) | payer MEDICARE, SELFPAY ==
[2024-12-21 12:00] VITALS: BP 147/72; PULSE 67; RESP 16; O2SAT 98; BMI 21.3
[2025-01-04] VITALS (15 sets, daily range): BP systolic 115–168; BP diastolic 52–82; PULSE 60–96; RESP 14–22; TEMP 36.1–36.7; O2SAT 92–100; BMI 21.4; BMI 23.3
--- NOTE | ~2025-01-04 | FL_ITS ---
EXAMINATION: FL GUIDANCE ONLY HISTORY: L4-5 Transforaminal Interbody Fusion Left COMPARISON: Correlation is made with an MRI of the lumbar spine dated 10/22/2024. TECHNIQUE: Fluoroscopy time: 40.3 seconds. Cumulative Dose: 22.1 mGy. DAP: 7.0861 mGym2 Images: 3. FINDINGS: Fluoroscopic spot films of the lumbar spine demonstrate posterior fusion of L4 and L5 with pedicle screws, spinal stabilization rods, and an intervertebral spacer. FL/FL guidance in OR IMPRESSION: Fluoroscopy during procedure. Please see procedure report for additional information. Electronically signed by: Royal Shah MD 01/04/2025 09:35 AM EDT
[2025-01-04] MEDS: Lactated Ringers 1,000 ML 100 ML IVCONT (06:31)
--- NOTE | 2025-01-04 06:59 | MHC.SHP ---
Pre-Procedural Eval Section A - 24 Hr Update-Section A only Date of Service: 01/04/25 Section B - Complete if H&P > 30 days Chief Complaint: s/p L, L4-5 transforaminal lumbar interbody fusion Allergies: Allergies Allergy/AdvReac Type Severity Reaction Status Date / Time No Known Allergies Allergy Verified 01/04/25 06:06 Review of Systems Sugical H&P ROS: Negative: Constitution, Cardiovascular, Respiratory, Neurological, Psychiatric, Hem-Onc, Allergic/Immunologic, Gastrointestinal, Genitourinary, Musculoskeletal, Integumentary, Endocrine and Eyes/Ears/Nose/Throat Exam Surgical H&P Exam: Not Evaluated: HEENT, Not Evaluated: Heart, Not Evaluated: Lungs, Not Evaluated: Extremities, Not Evaluated: Abdomen, Not Evaluated: Skin and Not Evaluated: Neurological Exam Comment: The patient is awake, alert, in no acute distress. Proposed surgical incision site is clean, dry, no signs of recent trauma. Plan Diagnosis/Plan: Unchanged I have reviewed the history and physical and performed a pertinent physical examination on my patient. No changes have occurred unless specified. Plan remains the same, L4-5 TLIF Time Spent With Patient Time: Total time managing care of this patient today __6__ minutes.
--- NOTE | 2025-01-04 07:15 | PHA.MEDREC ---
Pharmacy Consult ? Medication Reconciliation Pharmacy has reviewed the medication reconciliation completed by nursing. Claims match med rec.
--- NOTE | 2025-01-04 07:25 | HO.ANESPROP2 ---
Documented by User: Mariajose Vilchis NP 12/22/24 14:38 HPI - Anesthesia Eval Consult details Narrative: 64yo F for Left Transforaminal Lumbar Interbody Fusion, 01/04/25 s/p laminectomy 2022 with GA-ETT 7.5 No recent illness NO CP/SOB with walking daily, carrying groceries Daily THC: advised preop hold Smoker: plans to quit PMFSH Active Problems Active Problems: All Active Problems Osteopenia (Acute) Hip pain (Acute) Bacteria in urine (Acute) Screening for osteoporosis (Acute) Elevated LDL cholesterol level (Acute) Elevated liver enzymes (Acute) Numbness and tingling of left lower extremity (Acute) Left hip pain (Acute) Chronic radicular pain of lower back (Acute) Avascular necrosis of bone of left hip (Acute) Mitral valve annular calcification (Acute) Aortic valve calcification (Acute) Low back pain (Acute) Lateral pain of left hip (Acute) Condyloma acuminata (Acute) S/P lumbar laminectomy (Acute) Preop examination (Acute) Vulvar lesion (Acute) Well woman exam (Acute) Lumbar disc herniation with radiculopathy (Acute) Lumbar disc herniation (Acute) Muscle spasm (Acute) Cervical spondylosis (Acute) Lumbar spinal stenosis (Acute) Tobacco dependence with current use (Acute) Sacroiliac joint pain (Acute) Lumbar and sacral spondyloarthritis (Acute) Microalbuminuria (Acute) Screening for cervical cancer (Acute) Breast cancer screening by mammogram (Acute) Screening for colon cancer (Acute) Adult general medical exam (Acute) Lumbar radiculopathy (Acute) Avascular necrosis of left femoral head (Acute) Ascending aorta dilatation (Acute) Right wrist pain (Acute) Sciatica, left side (Acute) Aortic dilatation (Acute) Cardiac murmur (Acute) Preop cardiovascular exam (Acute) Hypertension (Acute) Discomfort of left ear (Acute) Back pain (Acute) Daytime sleepiness (Acute) Smoker (Acute) Faint heart murmur (Acute) Neoplasm of uncertain behavior of skin (Acute) Rash (Acute) Weight loss (Acute) Anxiety (Acute) High blood pressure (Acute) Past Medical History Medical History Back pain Numbness Cannabis dependence, daily use Smoker EtOH dependence Heart murmur High blood pressure Family History Family History Mother Breast cancer Sister Breast cancer Father Diabetes Other Substance use disorder Family history of problems with anesthesia: No Surgical History Surgical History History of lumbar laminectomy (~2022) Hx of bilateral cataract extraction Hx of tonsillectomy History of ankle surgery History of eye surgery History of Problems with Anesthesia: No Social History Social History Household Members Other:: adult son Housing: Apartment Are you a primary assistant child care teacher to a significant other at home: No Do you presently have visiting nurse or other home services: No Alcohol intake: never Comment: all counts correct Patient Tobacco Use Status: Current everyday Tobacco user Tobacco use type: Cigarette Cigarette Packs Per Day: 0.7 Cigarettes Per Day: 8 Years Smoked: 10 Smoked in Last 30 Days: Yes e-Cigarette/Vaping Use: Never Used Patient Interested in Nicotine Replacement: Yes Second Hand Smoke Exposure: Yes Use of substances other than those prescribed or required for medical reasons: Yes Substance Use Type: Marijuana Substance Use Frequency: Daily Have you been hit, kicked, punched, or otherwise hurt by someone within the past year? 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 Current occupational exposures/hazards: No Sexual orientation: Straight/Heterosexual Gender identity: Female Cognitive needs: No Hearing needs: No Vision needs: No Meds Allergies Allergy/AdvReac Type Severity Reaction Status Date / Time No Known Allergies Allergy Verified 01/04/25 06:06 Exam Height,Weight and Vital Signs: Height 5 ft 4 in Weight 56.245 kg Last Vital Signs Pulse 67 12/21/24 12:00 Resp 16 12/21/24 12:00 BP 147/72 H 12/21/24 12:00 Pulse Ox 98 12/21/24 12:00 O2 Del Method Room Air 12/21/24 12:00 Pertinent Lab Results Pertinent Lab Results: Laboratory Tests 08/26/24 11/30/24 11:09 09:30 WBC 9.3 Hgb 12.6 Hct 38.3 Plt Count 258 Sodium 142 Potassium 4.4 Chloride 109 H Carbon Dioxide 27 BUN 16 Creatinine 0.97 Lab Results 12/21/24 Range/Units 12:40 Blood Type O Negative Antibody Screen NEGATIVE Narrative Narrative: EKG 05/2024 EKG Details: EKG with underlying sinus rhythm at 74/Min; leftward axis; nonspecific ST-T changes; normal AL and corrected QT. PVC. ECHO 2023 Conclusions: - 1. Normal LV ejection fraction of 60 65% with impaired relaxation filling pattern 2. At least mildly dilated left atrium 3. Calcific mitral and aortic valve changes noted with trace aortic regurgitation early mild aortic stenosis 4. Upper limits of normal ascending aortic size 5. No gross pericardial effusion Airway Mallampati Class: II TM Dist: >3cm Neck ROM: Full (sore d/t shoulder pain) Loose/Missing/Broken Teeth: Yes (front top veneers, molars extracted) Heart: RRR Lungs: CTAB Assessment and Plan Assessment Anesthesia Assessment: Anesthesia Plan Discussed, Smoking Cess. Discussed and PAT Visit Final Anesthetic Review Family History of Problems with Anesthesia: No History of Problems with Anesthesia: No Documented by User: Cyn Young DO 01/04/25 07:[facility] Past Medical History Medical History Back pain Numbness Cannabis dependence, daily use Smoker EtOH dependence Heart murmur High blood pressure Family History Family History Mother Breast cancer Sister Breast cancer Father Diabetes Other Substance use disorder Family history of problems with anesthesia: No Surgical History Surgical History History of lumbar laminectomy (~2022) Hx of bilateral cataract extraction Hx of tonsillectomy History of ankle surgery History of eye surgery History of Problems with Anesthesia: No Social History Social History Household Members Other:: adult son Housing: Apartment Are you a primary assistant child care teacher to a significant other at home: No Do you presently have visiting nurse or other home services: No Alcohol intake: never Comment: all counts correct Patient Tobacco Use Status: Current everyday Tobacco user Tobacco use type: Cigarette Cigarette Packs Per Day: 0.7 Cigarettes Per Day: 8 Years Smoked: 10 Smoked in Last 30 Days: Yes e-Cigarette/Vaping Use: Never Used Patient Interested in Nicotine Replacement: Yes Second Hand Smoke Exposure: Yes Use of substances other than those prescribed or required for medical reasons: Yes Substance Use Type: Marijuana Substance Use Frequency: Daily Have you been hit, kicked, punched, or otherwise hurt by someone within the past year? 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 Current occupational exposures/hazards: No Sexual orientation: Straight/Heterosexual Gender identity: Female Cognitive needs: No Hearing needs: No Vision needs: No Meds Allergies Allergy/AdvReac Type Severity Reaction Status Date / Time No Known Allergies Allergy Verified 01/04/25 06:06 Exam Exam Date and Time: 01/04/25724 Height,Weight and Vital Signs: Height 5 ft 4 in Weight 56.245 kg Last Vital Signs Pulse 67 12/21/24 12:00 Resp 16 12/21/24 12:00 BP 147/72 H 12/21/24 12:00 Pulse Ox 98 12/21/24 12:00 O2 Del Method Room Air 12/21/24 12:00 Vital Signs Pulse Rate 67 12/21/24 12:00 Respiratory Rate 16 12/21/24 12:00 Blood Pressure 147/72 H 12/21/24 12:00 Pulse Oximetry 98 12/21/24 12:00 Oxygen Delivery Method Room Air 12/21/24 12:00 Temperature 98.1 F 01/04/25 06:37 Pulse Rate 60 01/04/25 06:37 Respiratory Rate 14 01/04/25 06:37 Blood Pressure 132/54 L 01/04/25 06:37 Pulse Oximetry 97 01/04/25 06:37 Oxygen Delivery Method Room Air 01/04/25 06:37 Airway Mallampati Class: II TM Dist: <=3cm Neck ROM: Full Loose/Missing/Broken Teeth: Yes (multiple missing teeth) Heart: S1S2 Assessment and Plan Assessment Anesthesia Assessment: Anesthesia Plan Discussed and Chart Reviewed Final Anesthetic Review Family History of Problems with Anesthesia: No History of Problems with Anesthesia: No NPO: Yes ASA Class: III Final Preanesthetic Review: No Changes in Pt Med Stat, Meds/Allgs Chart Reviewed, Consent Obtained/Reviewed and Anes Risks/Benef Reviewed Patient Risk: Intermediate Procedure Risk: Intermediate Anesthetic Plan Anesthetic Plan: GA and Agree w/ Assess. and Plan Disposition: Standard PACU
--- NOTE | 2025-01-04 12:15 | P.OP_ITS ---
Operative Note Operative Note Date of Service: 01/04/25 Narrative: Preop diagnosis: Recurrent disc herniation; degenerative disc disease; lumbar radiculopathy Postop diagnosis: Same Procedure: Left L4-5 complete facetectomy; diskectomy, arthrodesis and implantation cage; L4-L5 posterior instrumentation; combination of allograft and allograft Consent Informed Consent was obtained for this operation. I have explained the nature, purpose and benefits of the operation. I have discussed the risks and benefit of the operation including possible complications or adverse events with patient/family. Alternative(s) were discussed with the patient with their relative benefits and risks as well as the consequences of not accepting the operation were included in obtaining consent. Surgeon: Ramos Cooley MD, PhD Assist: JEVON Chung Description of Procedure: This patient previously underwent a left L4-5 laminotomy diskectomy. She returned with recurrent symptoms. An MRI showed a recurrent disc herniation L4- 5 compressing the left 5. . The patient was offered a remove the disc herniation followed by a fusion of the L4-5 segment with a transforaminal lumbar interbody fusion. The procedure and complication were explained. The patient was consented. The patient was brought to the operating room endotracheally intubated. The patient was turned in a prone position the Ady spine table prepping and draping was done followed by time-out. Two C arms were installed for fluoroscopy. Two paramedian incisions were made in preparation for pedicle screw placement. Following steps were taken for pedicle screw placement: First the pediguard tap was used to create a transpedicular trajectory into the vertebral body. Then a K-wire was advanced into the vertebral body. On the contralateral side, a specially designed instrument was advanced over the K-wire , followed by placement of a pedicle screw in the corresponding pedicle and removal of the K-wire. On the ipsilateral side, the K-wires were bent out of the way after which the transforaminal interbody fusion process was started. The paravertebral muscles were released to expose the L4-5 lamina and facet joint. A high-speed drill was used to a complete facetectomy. The nerve root was retracted medially after which a thorough L4-5 diskectomy was done. The endplates were prepared. The anterior 1/3 of the disc space was filled with a combination of allograft and autograft. An expandable CTL cage with the initial height of 8 mm and 30.5 mm length was inserted under fluoroscopic guidance ending in the midline on AP fluoroscopic image and expanded until its torque limit. The expandable cage was back filled with 2 cc of allograft. Final x- rays were obtained in AP and lateral projection which showed a good position of the interbody device. Hemostasis was done. The retractor was removed. Finally, pedicle screws were placed over the K-wires and the K-wires were removed. A total of 4 pedicle screws were placed with a diameter of 6.5 x 45 mm in the bilateral L4 and L5 pedicles. The pedicle screws were connected with a 45 mm abida on the right and a 40 mm abida on the left and locked down with locking caps. Final x-rays in AP and lateral projection showed good position of the int erbody device and posterior instrumentation. Hemostasis was done and the incisions were closed with an 0 Vicryl to fascia and a 3-0 Vicryl for the subdermal layer. All sponge and needle counts were correct. Patient was extubated and transported in a stable condition to recovery room. This procedure was done with assistance of her physician assistant teacher who helped an refrigeration engineer in the fluoroscopic imaging, placed pedicle screws and performed hemostasis and closure of the incisions. Anesthesia: General Estimated blood loss: 20 mL Surgical time: 70 minutes Complications: None. Deposition: Admit to inpatient for clinical observation.
[2025-01-04] MEDS: Nicotine 21 MG PATCH.TD24 TRANSDERMA (13:48)
[2025-01-04] MEDS: oxyCODONE HCl Immed Release 5 MG TABLET 10 MG PO ×2 (18:06→22:12)
[2025-01-05] VITALS: BP 143/66; PULSE 82; RESP 20; TEMP 36.5; O2SAT 99
[2025-01-05 04:00] VITALS: BP 135/58; PULSE 68; RESP 14; TEMP 36.6; O2SAT 97
[2025-01-05] MEDS: oxyCODONE HCl Immed Release 5 MG TABLET 10 MG PO (07:09)
--- NOTE | 2025-01-05 07:30 | P.DS_ITS ---
DS: Providers Provider Date of Service: 01/05/25 Date of admission: 01/04/25 05:58 Date of discharge: 01/05/25 Primary care physician: Ramesh Ventura MD DS: Summary Time Attestation Discharge Coordination Time (in mins): 12 Quality: Safe Use of Opioids Does Pt have an Active Cancer Diagnosis on the Problem List?: No Quality: Stroke Does the patient have a stroke diagnosis?: No Physical Exam Vital Signs: Vital Signs: Last Vital Signs Temp 97.8 F 01/05/25 04:00 Pulse 68 01/05/25 04:00 Resp 14 01/05/25 04:00 BP 135/58 L 01/05/25 04:00 Pulse Ox 97 01/05/25 04:00 O2 Del Method Room Air 01/05/25 04:00 O2 Flow Rate 6 01/04/25 09:30 BMI result Body Mass Index 23.3 Discharge Plan Discharge Anticipated Discharge Date/Time: 01/05/25 07:30 Patient Disposition: Home, Self-Care Discharge Diagnosis: S/P L4-5 TLIF Referrals: Ramesh Ventura MD [Primary Care Provider, Internal Medicine] - 1 Week Discharge Medications: New oxycodone 5 mg tablet See Rx Instructions .ROUTE .COMPLEX PRN (Reason: pain) Qty: 30 0RF Rx Instructions: Take 1-2 tablets by mouth every 4 hours; Partial Fill upon patient request. 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 Hold until Oxycodone Rx is complete Rx Instructions: Partial Fill upon patient request. Discharge Orders: Discharge Order (Routine); Ordered 01/05/25 Ordered By: Da Prieto Diet: Advance to usual diet Activity on Discharge: As tolerated Stand Alone Forms: Patient Portal Discharge page Print Language: Georgian Activity Restrictions/Additional Instructions: After your spinal surgery we ask you to observe the following restri ctions/guidelines: Activity: It is normal to feel some discomfort as you increase your activity, but that will improve with time. We ask you avoid heavy lifting or acitivities that cause pain. As a general rule, 8lbs is a safe limit for lifting right after surgery. Walk as much as you feel comfortable but not to exhaustion. You will feel extra tired the first few days after surgery. Stay well hydrated. It is OK to walk up and down stairs You may return to driving when you are off narcotics (such as vicodin, oxycodone, dilaudid, etc), and you are back to normal functional capacity. If you have any concerns please check with office before driving. Return to work is specific to each patient and each surgery, so please speak with your doctor/PA at first follow up. Please bring paperwork such as FMLA at that time if you need it filled out. Medications: We recommend you take 1,000mg Tylenol every 8 hours for the first few weeks after surgery, if you do not have any liver issues and can tolerate this medication. Do not exceed 4,000mg daily. We will give you a short supply of narcotics after surgery (usually one weeks worth). If you need more please call the office but do not use more than prescribed. You will need to give our office 48 hours notice if you need narcotics refilled and we do not fill narcotics on weekends or evenings. If you are on a narcotic, it is a good idea to take a stool softener such as colace or senna to avoid constipation If you take blood thinner such as aspirin, Plavix, Coumadin, Effient, Eliquis etc for conditions such as Afib, DVT, Pulmonary embolus, coronary disease, stents etc please speak with your surgeon about specific details as to when you can resume these medications. You can resume NSAIDs on post op day 1 (eg: Motrin, Naproxen, etc). Follow up: Please call the office, , after surgery to arrange a 3 week follow up for wound check. Wound Care: You may remove your dressing on the first day after surgery. ?You may ?leave open to air. Please do not remove the steri strips underneath. they will fall off on their own in one week. IT IS NORMAL FOR THE WOUND TO OOZE OR BE BLOODY FOR A FEW DAYS AFTER SURGERY. ?IF THIS HAPPENS JUST PLACE NEW DRESSING OVER IT TO AVOID STAINING CLOTHES. You may shower on post op day # 1 We ask that you do not let the water soak the wound. If it does get wet, just towel dry lightly. Please do not scrub your incision or place any type of chemical/ointment on the wound. No tub baths, pools or jacuzzis for one month. If you have any leaking or redness from your wound, or fevers, please call the office. Care Plan Goals: Return to normal activity as tolerated Health Concerns: None Plan of Treatment: Follow-up in clinic in 2-3 weeks Assessment: POD: 1 Procedure: L4-5 TLIF Naomy is a pleasant 64-year-old female who underwent L4-[address] Cooley yesterday. She reports she is up walking around is otherwise doing well. She still has some continued low back pain with good relief from current pain regimen. She denies any radicular / leg symptoms. She has been up out of bed to the bathroom, and is voiding well. She is tolerating her current diet. Overall, she feels her symptoms are much better than they were preoperatively. Afebrile, vital signs stable. Full strength 5/5 bilateral lower extremities. Back dressings have some staining without signs of hematoma. No active sanguineous drainage. Area is dry. Plan: Pleasant 64-year-old female who underwent L4-[address] Cooley yesterday. She is progressing normally as expected. Patient meets criteria to be medically discharged home. She was seen at bedside with Dr. Cooley. I will send in a prescription for Oxycodone 5mg to [facility]. Da Cooley MD,PhD [facility]
[2025-01-05 07:37] VITALS: BP 144/65; PULSE 69; RESP 18; TEMP 36.4; O2SAT 100
[2025-01-05] MEDS: Nicotine 21 MG PATCH.TD24 TRANSDERMA (07:47)
--- NOTE | 2025-01-05 08:58 | HO.POSTANES ---
Post Anesthesia Evaluation Post Anesthesia Evaluation Date of Service: 01/04/25 Vital Signs: Vital Signs Temp Pulse Resp BP Pulse Ox O2 Del Method 01/05/25 07:37 97.6 F 69 18 144/65 H 100 Room Air 01/05/25 04:00 97.8 F 68 14 135/58 L 97 Room Air 01/05/25 00:00 97.7 F 82 20 143/66 H 99 Room Air Anesthesia: General Mental Status: Awake Pain Control: Satisfactory Nausea/Vomiting: None Hydration: Adequate Anesthesia-Related Issues: No Anes. Related Issues
--- NOTE | 2025-01-05 09:23 | MHC.CM.PN ---
IMM delivered. Patient lives in an apt w/ her son. Functionally independent. Denies use of DME or services. PCP Ramesh Ventura MD Reports she has an HCP listing her daughter, Sharon, as HCA. Copy requested. DP: Medically cleared for dc. PT initally recommending home services, now recommending home w/ family support. Patient reports she will stay w/ her daughter for a few days post op, who can assist PRN. Nephew will transport. RN aware.
== END 2025-01-05 09:34 | disposition home or self-care (01) | DRG 451 ==
LOC: HO.SSSA 06:17 → HO.S3 10:46
PROVIDERS: Admitting Provider Neurological Surgery; PCP Family Medicine; Visit Provider Neurological Surgery
PROC: 0SG00A0 Fusion of Lumbar Vertebral Joint with Interbody Fusion Device, Anterior Approach, Anterior Column, Open Approach (ICD-10-PCS; principal; 2025-01-04 07:30)
DX: M51.16 Intervertebral disc disorders with radiculopathy, lumbar region (principal); F17.210 Nicotine dependence, cigarettes, uncomplicated; Z71.6 Tobacco abuse counseling; Z79.899 Other long term (current) drug therapy
CPT/HCPCS: 86850; 86900; 86901; 97116; 97162; C1713; C1889; J0131; J0690; J1100; J1171; J1885; J2250; J2405; J2704; J3010; L8699

== ENCOUNTER → 2025-01-04 05:58 | Outpatient (BNV) | payer MEDICARE, SELFPAY | PROVIDERS: Admitting Provider Neurological Surgery; PCP Family Medicine; Visit Provider Neurological Surgery | DX: M51.26 Other intervertebral disc displacement, lumbar region (principal); M51.16 Intervertebral disc disorders with radiculopathy, lumbar region | CPT/HCPCS: 20930; 20936; 22633; 22840; 22853; 63052; 99499 ==

== ENCOUNTER 2025-01-21 08:51 | Outpatient (AMB) | payer MEDICARE, SELFPAY ==
--- NOTE | 2025-01-21 08:54 | MHC.OFFVIS ---
Vital Signs 01/21/25 08:57 Height 5 ft 4 in Weight 120 lb BMI 20.6 BP 138/62 Blood Pressure Location Lt brachial Position Sitting Pulse 92 Pulse Oximetry (%) 96 Oxygen Delivery Method Room Air Intake Visit Reasons: [facility] Screening r/s 11/25/24 Intake Note: Patient new consult for 3rd pre Colonoscopy/EGD screening. Patient cc: some swallowing difficulty on and off. tiredness. Denies any other GI issues. End Lathe Operator Required: No Accompanied by: Self / Same As Patient Allergies No Known Allergies Allergy (Verified 01/21/25 08:53) Medication List - Last Reconciled 01/21/25 by Carmen Hendrickson CNP gabapentin 400 mg PO QID 30 days lisinopril 20 mg PO DAILY 90 days meloxicam 15 mg PO DAILY PRN morphine ER 15 mg PO Q8H PRN 3 days Held on 01/05/25. Instructions: Resume on 02/05/25. Hold until Oxycodone Rx is complete nicotine 1 patch transdermal DAILY 28 days oxycodone Take 1-2 tablets by mouth every 4 hours; Partial Fill upon patient request. HPI HPI [facility] Screening r/s 11/25/24: Details: Patient is a 64-year-old female with PMH of nicotine, cannabis dependence, alcohol dependence in remission; hypertension. Referred by PCP for pre colonoscopy screening This will be her third colonoscopy, with the last performed approximately seven years ago in [place] and reported as normal. During that time, an upper endoscopy was also performed due to symptoms related to GERD, attributed to their history of heavy alcohol use, which has since ceased over five years ago. Currently, the patient reports ongoing intermittent difficulty swallowing (dysphagia), which they believe may have originated during the timeframe of their endoscopy in [place]. Symptoms include difficulty swallowing both solids and liquids, which are more prominent when food intake has been delayed due to reduced appetite. The patient denies any associated pain, heartburn, regurgitation, choking, nausea, vomiting, or weight loss. They state that their poor appetite began 2?3 years ago and persists. The patient denies recent symptoms of constipation, diarrhea, blood in stools, or abdominal pain. Bowel movements occur daily or every other day with soft and formed stool consistency. They were previously prescribed medication post-endoscopy in [place], which resolved earlier swallowing difficulties, but details of the prescription are unclear. Relevant background includes a history of elevated liver function tests and cholesterol levels noted in August 2024, which normalized by November 2024. Social hx: -Diet: Poor appetite; primarily consuming [employer] protein shakes, potentially as meal replacements. Reports inadequate intake of solid meals. -Alcohol Use: History of heavy alcohol use, abstinent for 5+ years. -Tobacco Use: Currently smoking <1 pack/day; intention to quit using nicotine replacement therapy. -Drug Use: Daily recreational marijuana use, prefers it over cigarettes. Denies other recreational drug use - family hx as below -denies personal hx of [place] -denies significant cardiopulmonary history -tolerated anesthesia in the past without difficulty. [facility] Medical History (Updated 01/21/25 @ 09:52 by Carmen Hendrickson CNP) Decreased appetite Dysphagia Back pain Numbness Cannabis dependence, daily use Smoker EtOH dependence Heart murmur High blood pressure Surgical History (Updated 01/21/25 @ 09:01 by Ava Adams) History of back surgery History of lumbar laminectomy (~2022) Hx of bilateral cataract extraction Hx of tonsillectomy History of ankle surgery History of eye surgery Family History Mother Breast cancer Sister Breast cancer Father Diabetes Other Substance use disorder Social History Household Members: Children Household Members Other:: adult son Housing: Apartment Are you a primary housekeeper child care to a significant other at home: No Do you presently have visiting nurse or other home services: No Alcohol intake: never Comment: all counts correct Patient Tobacco Use Status: Current everyday Tobacco user Tobacco use type: Cigarette Cigarette Packs Per Day: 0.7 Cigarettes Per Day: 8 Years Smoked: 10 e-Cigarette/Vaping Use: Never Used Second Hand Smoke Exposure: Yes Substance Use Type: Marijuana service: No Current occupational status: disabled 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 Current occupational exposures/hazards: No Sexual orientation: Straight/Heterosexual Gender identity: Female Cognitive needs: No Hearing needs: No Vision needs: No Review of Systems Const Reports as per HPI ENT Reports as per HPI, Reports bleeding gums and Reports hearing loss Card Reports as per HPI Resp Reports as per HPI GI Reports as per HPI Reports as per HPI Physical Exam Vital Signs: Last Vital Signs Pulse 92 01/21/25 08:57 BP 138/62 01/21/25 08:57 Pulse Ox 96 01/21/25 08:57 Oxygen Delivery Method Room Air 01/21/25 08:57 BMI result Body Mass Index 20.6 Const General: healthy appearing, no acute distress and well developed Nutritional Appearance: average body habitus Orientation/consciousness: patient oriented x3 HEENT Head: Yes normal to inspection, Yes normocephalic and Yes atraumatic Face and sinus: Yes normal facial exam Eyes General: appearance normal, both eyes and all related structures Neck Neck: Yes normal visual inspection Resp Effort & Inspection: normal respiratory effort, able to speak in complete sentences, no tracheal deviation and symmetric chest movement Auscultation: clear to auscultation bilaterally Cardio Jugular venous distension: no JVD Rate: regular rate Rhythm: regular rhythm Heart sounds: S1 normal heart sound present, S2 normal heart sound present, no gallops and no murmurs GI Inspection: Yes normal to inspection and No distended Palpation (GI): Soft to palpation, not firm, nontender and No hepatosplenomegaly present Auscultation: normal bowel sounds Neuro General: patient oriented x3 Gait exam (Neuro): Normal gait present Psych Appearance: grossly normal Mental Status: mental status grossly normal Speech and movement: Normal speech and movement present Affect: normal affect Attitude: cooperative Thought process: Normal thought process present Thought content: Normal thought content present Insight: Good insight present (Psych) Judgement: Good judgement present (Psych) Assessment & Plan Assessment & Plan (1) Screening for colon cancer: Code(s): Z12.11 - Encounter for screening for malignant neoplasm of colon Category: Medical Plan: Routine follow-up based on history and interval since prior colonoscopy. Medications: -prescriptions for laxative tablets and MiraLax sent to pharmacy; instructions for Gatorade purchase and clear liquid diet given. Patient educated on scheduling process, procedure preparation, including avoiding certain foods and ensuring clear liquid intake Advised on necessity for ride post-procedure due to sedation. (2) Dysphagia: Code(s): R13.10 - Dysphagia, unspecified Category: Medical Qualifiers: Dysphagia type: unspecified Qualified Code(s): R13.10 - Dysphagia, unspecified Plan: Chronic history of swallowing difficulty without progression, affecting both solids and liquids. Additional Testing: -Order Barium swallow study to evaluate for anatomical or functional esophageal abnormalities. -Concurrent upper endoscopy to assess for tissue changes such as esophagitis, gastritis or other pathology. Medication Management: No medications initiated at this time; PRN options for GERD symptoms if present in the future. Lifestyle Recommendations: Recommend small, frequent meals, chewing thoroughly, and staying hydrated. Suggest homemade protein shakes instead of prepackaged options to monitor ingredients and increase variety. Follow-Up: Post-swallow study and endoscopy results to discuss findings and next steps. (3) Decreased appetite: Code(s): R63.0 - Anorexia Category: Medical Plan: Current nutritional intake insufficient to meet long-term caloric and micronutrient needs, considering reliance on protein shakes as meal replacements. Reviewed weight trend and identified a discrepancy in weights documented on 01/04/2025: 124 lbs at 06:15 and 135 lbs at 11:07 AM. Previous weight on 12/21/2024 was 124 lbs. Weight today is 120 lbs, which is more consistent with baseline. Variance on 01/04 may reflect documentation error Lifestyle Recommendations: Emphasize whole foods diet for both cardiac and hepatic health, minimizing fried and fatty foods. follow up: GI workup unyielding further workup deferred to PCP (4) Tobacco dependence with current use: Code(s): F17.200 - Nicotine dependence, unspecified, uncomplicated Category: Medical Plan: Smoking contributes to overall health risk. Lifestyle Recommendations: Encourage smoking cessation with continued exploration of nicotine replacement therapy, such as patches. Plan Follow-up after endoscopy or sooner as needed Time: I spent a total of 30 minutes on the date of encounter which includes: Preparing to see the patient (reviewed previous documentation, test results and medical history) Performing a medically appropriate exam and/or evaluation Ordering medications, tests, and procedures Documenting clinical information in the health record Orders: Orders FL barium swallow Today R13.10 - Dysphagia, unspecified Medications: New polyethylene glycol 3350 (Miralax) per colonoscopy prep instructions 238 grams PO ONCE 238 grams 0RF bisacodyl (Dulcolax (bisacodyl)) Take four tablets pre colonoscopy instructions 20 mg (4 x 5 mg) PO ONCE 4 tabs 0RF 1 day Coding Level of Care Code New Pt New Pt Level 3 (15291) Patient Type New Diagnoses Screening for colon cancer Z12.11 Dysphagia, unspecified type R13.10 Dysphagia type: unspecified Decreased appetite R63.0 Tobacco dependence with current use F17.200
[2025-01-21 08:57] VITALS: BP 138/62; PULSE 92; O2SAT 96; BMI 20.6
== END 2025-01-21 09:28 | disposition home or self-care (01) ==
LOC: HO.HGI 08:51
PROVIDERS: PCP Family Medicine; Visit Provider Nurse Practitioner Family
DX: Z12.11 Encounter for screening for malignant neoplasm of colon (principal); R13.10 Dysphagia, unspecified; R63.0 Anorexia; F17.200 Nicotine dependence, unspecified, uncomplicated
CPT/HCPCS: 99024

== ENCOUNTER → 2025-01-21 08:51 | Outpatient (BNVA) | payer MEDICARE, SELFPAY | PROVIDERS: PCP Family Medicine; Visit Provider Nurse Practitioner Family | DX: Z12.11 Encounter for screening for malignant neoplasm of colon (principal); R13.10 Dysphagia, unspecified; R63.0 Anorexia; F17.210 Nicotine dependence, cigarettes, uncomplicated | CPT/HCPCS: 99212 ==

== ENCOUNTER 2025-01-25 15:00 | Outpatient (AMB) | payer MEDICARE, SELFPAY ==
--- NOTE | 2025-01-25 15:07 | A.SPINEOV_ITS ---
Intake Visit Reasons: 1st post op Intake Note: Ms. Cervantes is here today for her 1st post-op visit. Joist Setter Required: No Allergies No Known Allergies Allergy (Verified 01/21/25 08:53) Assessment & Plan Assessment & Plan (1) S/P lumbar fusion: Code(s): Z98.1 - Arthrodesis status Category: Medical Plan Operation: L4-5 TLIF Naomy is a pleasant 64 year old female comes in today for her 1st postoperative visit after having an L4-[address] Cooley 01/04/25. To recap she had a recurrent disc herniation at L4-5 and was offered lumbar fusion to address this. Thankfully, today she reports that she is largely had resolution of her pain since the surgery. She still will occasionally get twinges of pain, but feels this is fairly well mitigated with nonnarcotic pain control. She did ask that we refill some muscle relaxers for her during this visit, as she does not want to continue taking anything stronger for pain. He has been completing her ADLs without much issue, and is otherwise very satisfied with her surgery. No new neurological deficits. The patient ambulates well and rises from seated position without difficulty. Her posterior incision sites are closed and well healing. I would like to follow up with Naomy again in 6 weeks for her 2nd postoperative visit. At that time we will obtain a set of x-rays. Da Cooley MD,PhD [facility] Medications: New baclofen 10 mg PO TID PRN 30 tabs 0RF muscle spasm Discontinued oxycodone Discontinued Reason: Doctor's Order Take 1-2 tablets by mouth every 4 hours; Partial Fill upon patient request. 30 tabs 0RF pain meloxicam Discontinued Reason: None 15 mg PO DAILY PRN 30 tabs 0RF pain (scale score 4-6) Coding Level of Care Code Global (93144) Diagnoses S/P lumbar fusion Z98.1
== END 2025-01-25 15:21 | disposition home or self-care (01) ==
LOC: HO.HNS 15:01
PROVIDERS: PCP Family Medicine; Visit Provider Physician Assistant
DX: Z98.1 Arthrodesis status (principal)
CPT/HCPCS: 99024

== ENCOUNTER → 2025-01-25 15:00 | Outpatient (BNVA) | payer MEDICARE, SELFPAY | PROVIDERS: PCP Family Medicine; Visit Provider Physician Assistant | DX: Z98.1 Arthrodesis status (principal) | CPT/HCPCS: 99212 ==

== ENCOUNTER 2025-03-04 10:07 | Outpatient (REF) | payer MEDICARE, SELFPAY ==
--- NOTE | ~2025-03-04 | MM_ITS ---
EXAMINATION: MM SCREENING DIGITAL BREAST TOMOSYNTHESIS, BILATERAL CLINICAL INFORMATION: Screening. Asymptomatic. COMPARISON: Comparison made to multiple prior, most recent February 05, 2024, and most remote April 21, 2020. TECHNIQUE: Digital breast tomosynthesis is performed in mediolateral oblique and craniocaudal views along with computer-aided detection (CAD). Synthesized 2D images are generated from the tomosynthesis. FINDINGS: BREAST COMPOSITION: The breasts are heterogeneously dense, which may obscure small masses (ACR BI-RADS breast composition Category c). RIGHT BREAST: Technical recall. Patient will be called back to repeat the right MLO view without the skin fold. Tissue marker from previous needle core biopsy. No obvious significant masses, suspicious calcifications or other abnormalities are seen within the limitation described above. LEFT BREAST: No significant masses, suspicious calcifications or other abnormalities are seen. MM/MM tomosynthesis screening BI IMPRESSION: RIGHT BREAST: Technical recall. Patient will be called back to repeat the right MLO without skinfold. LEFT BREAST: Negative, no mammographic evidence of malignancy. Normal interval follow-up is recommended in 12 months. ASSESSMENT: BI-RADS 0 - Incomplete: Needs additional Imaging. RECOMMENDATION: 1. Additional views of the right breast. 2. Targeted ultrasound if warranted after review of the additional views. 3. Radiology department staff will contact the patient for additional imaging. FOLLOW-UP: Additional Imaging required This examination should not preclude the clinical evaluation of a suspicious palpable abnormality. This patient's information was entered into a reminder system with a target due date for their next mammogram. Electronically signed by: Raymond Cavanaugh MD 03/08/2025 07:45 AM EDT
== END 2025-03-04 10:08 | disposition home or self-care (01) ==
LOC: HO.MAMMO 10:07
PROVIDERS: PCP Family Medicine; Visit Provider Family Medicine
DX: Z12.31 Encounter for screening mammogram for malignant neoplasm of breast (principal)
CPT/HCPCS: 77063; 77067

== ENCOUNTER → 2025-03-04 10:15 | Outpatient (BNV) | payer MEDICARE, SELFPAY | PROVIDERS: PCP Family Medicine; Visit Provider Radiology Body Imaging | DX: Z12.31 Encounter for screening mammogram for malignant neoplasm of breast (principal) | CPT/HCPCS: 77063; 77067 ==

== ENCOUNTER 2025-03-10 10:05 | Outpatient (AMB) | payer MEDICARE, SELFPAY ==
--- NOTE | 2025-03-10 10:10 | HO.SPINEOV ---
Intake Visit Reasons: 2nd post op with Xrays Intake Note: Ms. Cervantes is here today for her 2nd post op with xrays. Rock Crusher Operator Required: No Allergies No Known Allergies Allergy (Verified 01/21/25 08:53) Assessment & Plan Assessment & Plan (1) S/P lumbar fusion: Code(s): Z98.1 - Arthrodesis status Category: Surgical Plan Operation: L4-5 TLIF Naomy is a pleasant 64 year old female who comes in today for her first postoperative appt. after having L4-[address] Cooley on 01/04/25 for herniated disc recurrence. To recap during her last postoperative visit she reported overall good resolution of her pain aside from occasional flare ups. We had her obtain a set of X-rays during this visit today which show stable placement of her surgical construct with no notable changes from flouroscopy. She is set to return back to work, and states that she would like to start on 03/16/2025. She brought in some paperwork for me to fill out. She states that her job is fine with some restrictions, so I have recommended to limit excessive heavy lifting, and limit more aggressive physical activities like squatting, crawling, climbing. No new neurological deficits. The patient ambulates well and rises from a seated position without difficulty. Her posterior incision sites are well healed. I would like to follow up with Naomy again 1 year out from surgery. I will order a CT scan to be completed 10 months out from surgery. Da Cooley MD,PhD [facility] Orders: Orders XR lumbar spine 4V min Today Z98.1 - Arthrodesis status CT lumbar spine wo IV con Today Z98.1 - Arthrodesis status Coding Level of Care Code Global (15332) Diagnoses S/P lumbar fusion Z98.1
== END 2025-03-10 10:37 | disposition home or self-care (01) ==
LOC: HO.HNS 10:06
PROVIDERS: PCP Family Medicine; Visit Provider Physician Assistant
DX: Z98.1 Arthrodesis status (principal)
CPT/HCPCS: 99024

== ENCOUNTER → 2025-03-10 10:09 | Outpatient (BNV) | payer MEDICARE, SELFPAY | PROVIDERS: Visit Provider Radiology Diagnostic Radiology | DX: Z98.1 Arthrodesis status (principal); M43.16 Spondylolisthesis, lumbar region | CPT/HCPCS: 72110 ==

== ENCOUNTER 2025-03-10 12:04 | Outpatient (REF) | payer MEDICARE, SELFPAY ==
--- NOTE | ~2025-03-10 | XR_ITS ---
EXAMINATION: XR LUMBAR SPINE 4 OR MORE VIEWS HISTORY: Z98.1 - Arthrodesis status COMPARISON: Comparison is made with the prior examination dated 07/29/2022. FINDINGS: AP, and neutral, flexion, and extension lateral views of the lumbar spine are submitted. Osseous mineralization is normal. The patient is status post posterior fusion of L4 and L5 with pedicle screws, spinal stabilization rods, and an intervertebral spacer. There is slight retrolisthesis at this level. This does not change with flexion or extension. The vertebral bodies maintain normal height. There is mild degenerative disc disease with disc space narrowing. There is calcification of the abdominal aorta. XR/XR lumbar spine 4V min IMPRESSION: Status post posterior fusion of L4 and L5. Slight retrolisthesis at this level does not change with flexion or extension. Electronically signed by: Royal Shah MD 03/10/2025 11:06 AM EDT
== END 2025-03-10 12:05 | disposition home or self-care (01) ==
LOC: HO.HOSX 12:04
PROVIDERS: Visit Provider Physician Assistant
DX: Z47.89 Encounter for other orthopedic aftercare (principal); Z98.1 Arthrodesis status
CPT/HCPCS: 72110; 99212

== ENCOUNTER 2025-03-11 14:39 | Outpatient (AMB) | payer MEDICARE, SELFPAY ==
--- NOTE | 2025-03-11 14:45 | A.OFFPC_ITS ---
Vital Signs 03/11/25 14:49 Height 5 ft 4 in Weight 125 lb 4 oz BMI 21.5 BP 122/70 Blood Pressure Location Rt brachial Position Sitting Respiration 12 Pulse 76 Pulse Source Pulse Oximeter Temp 97.5 F Temp Source Oral Pulse Oximetry (%) 98 Oxygen Delivery Method Room Air Intake Visit Reasons: f/u HTN Intake Note: Follow up htn. 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 Instructions: Resume on 02/05/25. Hold until Oxycodone Rx is complete nicotine 1 patch transdermal DAILY 28 days polyethylene glycol 3350 (Miralax) 238 grams PO ONCE Tobacco use date assessed: 03/11/25 Fall risk assessment: No Falls in past year Last assessed Fall Risk: 03/11/25 Dental Screening Dental Screen Date: 03/11/25 Did you have a dental visit in the last 12 months?: Yes Did you have a dental problem in the last 6 months where you did not have access to dental care?: No Was dental information given to patient?: Patient has dentist HPI f/u HTN HPI Details 64 y/o female presents to f/u HTN. BP today 122/70, 76p. She is on lisinopril 20mg daily. S/p lumbar fusion and had been following up with neuro spine. Pt notes she feels she no longer needs her gabapentin. [facility] Medical History (Updated 01/21/25 @ 09:52 by Carmen Hendrickson CNP) Decreased appetite Dysphagia Back pain Numbness Cannabis dependence, daily use Smoker EtOH dependence Heart murmur High blood pressure Surgical History (Updated 01/25/25 @ 15:15 by JEVON Chung) History of back surgery History of lumbar laminectomy (~2022) Hx of bilateral cataract extraction Hx of tonsillectomy History of ankle surgery History of eye surgery Family History Mother Breast cancer Sister Breast cancer Father Diabetes Other Substance use disorder Social History Household Members: Children Household Members Other:: adult son Housing: Apartment Are you a primary home care administrator to a significant other at home: No Do you presently have visiting nurse or other home services: No Alcohol intake: never Comment: all counts correct Patient Tobacco Use Status: Current everyday Tobacco user Tobacco use type: Cigarette Cigarette Packs Per Day: 1 Cigarettes Per Day: 20.0 Years Smoked: 10 e-Cigarette/Vaping Use: Never Used Second Hand Smoke Exposure: Yes Substance Use Type: Marijuana service: No Current occupational status: disabled 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 1. Little interest or pleasure in doing things: not at all 2. Feeling down, depressed, or hopeless: not at all 3. Trouble falling or staying asleep, or sleeping too much: not at all 4. Feeling tired or having little energy: not at all 5. Poor appetite or overeating: not at all 6. Feeling bad about yourself - or that you are a failure or have let yourself or your family down: not at all 7. Trouble concentrating on things, such as reading the newspaper or watching television: not at all 8. Moving or speaking so slowly that other people could have noticed. Or the opposite - being so fidgety or restless that you have been moving around a lot more than usual: not at all 9. Thoughts that you would be better off or of hurting yourself in some way: not at all Total score: 0 Depression Screening Interpretation: Negative Depression Screening Done: Yes 49354 - PHQ-9 Billing: Yes Source: Developed by Drs. Royal George, Niki Huff, Donald Geller and colleagues, with an educational jeison from [employer]. Thrive Questionnaire Date Thrive assessed: 03/11/25 I am a: Patient What is your living situation today?: I have a steady place to live Within the past 12 months, did the food you bought not last and you didn't have the money to get more?: Never true Within the past 12 months, did you worry whether your food would run out before you got money to buy more?: Never true Do you have trouble paying for medicines?: No Do you have trouble getting transportation to medical appointments?: No Do you have trouble paying your heating and electricity bill?: No Do you have trouble taking care of your child, family member or friend?: No Do you have trouble with day-to-day activities such as bathing, preparing meals, shopping, managing finances, etc.?: No Are you currently unemployed and looking for a job?: No Are you interested in more education?: No THRIVE Score: 0 ALECIA-7 AMB Questionnaire ALECIA-7 Date ALECIA - 7 assessed: 03/11/25 Feeling nervous, anxious, or on edge: 0 = Not at all Not being able to stop or control worryin = Not at all Worrying too much about different things: 0 = Not at all Trouble relaxin = Not at all Being so restless that it is hard to sit still: 0 = Not at all Becoming easily annoyed or irritable: 0 = Not at all Feeling afraid as if something awful might happen: 0 = Not at all Total ALECIA-7 score (0-4 normal; 5-9 mild; 10-14 moderate; 15-21 severe): 0 Source: Developed by Drs. Royal George, Niki Huff, Donald Geller and colleagues, with an educational jeison from [employer]. ALECIA-7 Assessment Billing ALECIA-7 Assessment Tool: ALECIA-7 Assessment 60039 Review of Systems Const Denies chills, Denies fatigue, Denies fever(s), Denies headache(s) and Denies weakness ENT Denies dizziness and Denies headache(s) Card Denies dyspnea Resp Denies cough, Denies dyspnea, Denies wheezing and Denies other (shortness of breath) Musc Denies numbness and Denies tingling Neuro Denies dizziness, Denies headache(s), Denies numbness, Denies tingling and Denies weakness Psych Denies anxiety and Denies depression Endo Denies fatigue Aller/Immun Denies wheezing Physical exam (Primary Care) Vital Signs: Last Vital Signs Temp 97.5 F 03/11/25 14:49 Pulse 76 03/11/25 14:49 Resp 12 03/11/25 14:49 BP 122/70 03/11/25 14:49 Pulse Ox 98 03/11/25 14:49 Oxygen Delivery Method Room Air 03/11/25 14:49 BMI result Body Mass Index 21.5 Tobacco/Smoking Status: Tobacco use Status Tobacco use date assessed 03/11/25 03/11/25 14:51 Patient Tobacco Use Status Current everyday Tobacco 03/11/25 14:46 Tobacco use type Cigarette 03/11/25 14:46 e-Cigarette/Vaping Use Never Used 03/11/25 14:46 PHQ-9: PHQ-9 Score PHQ-9: Total score 0 03/11/25 14:46 Depression Screening Interpretation: Negative Thrive Assessment: Date of Thrive Assessment Date Thrive assessed 03/11/25 03/11/25 14:46 Const General: well developed; No acute distress Nutritional Appearance: well nourished Orientation/consciousness: patient oriented x3 HENMT Head: Yes normocephalic and Yes atraumatic Eyes General: appearance normal, both eyes and all related structures Pupils: Equal, round and reactive pupils present EOM: EOMs intact bilaterally Resp Effort & Inspection: normal respiratory effort Neuro General: patient oriented x3 and gait normal Cranial nerves: Yes Equal, round and reactive pupils present Psych Affect: normal affect Coding Level of Care Code Est Pt Level 4 (25769) Diagnoses Primary hypertension I10 Hypertension type: primary hypertension S/P lumbar fusion Z98.1 Elevated LDL cholesterol level E78.00 Dysphagia, unspecified type R13.10 Dysphagia type: unspecified Additional Codes LAECIA-7 Assessment Billing - ALECIA-7 Assessment Tool: ALECIA-7 Assessment 62105 ([id number]) PHQ-9 - 38906 - PHQ-9 Billing: Yes ([id number]) Assessment & Plan Assessment & Plan (1) Hypertension: Code(s): I10 - Essential (primary) hypertension Category: Medical Qualifiers: Hypertension type: primary hypertension Qualified Code(s): I10 - Essential (primary) hypertension Plan: Blood pressure is controlled. Goal is less than 140/90 Continue current medication (2) S/P lumbar fusion: Code(s): Z98.1 - Arthrodesis status Category: Surgical Plan: Patient is doing well. She does get occasional flare-ups. She has been given some baclofen but this has not helped so much. She notes that steroids and help in the past. Currently doing well and she can call or come here for up 1 his for mild flare ups. She wants start work again soon. Encouraged good body mechanics and plenty of rest (3) Elevated LDL cholesterol level: Code(s): E78.00 - Pure hypercholesterolemia, unspecified Category: Medical Plan: LDL cholesterol has been elevated Encouraged diet changes. Will recheck prior to next visit (4) Dysphagia: Code(s): R13.10 - Dysphagia, unspecified Category: Medical Qualifiers: Dysphagia type: unspecified Qualified Code(s): R13.10 - Dysphagia, unspecified Plan: Patient was seen recently by Gastroenterology for dysphagia They are planning a barium swallow and endoscopy. Follow-up with GI as recommended Orders: Orders Lipid Panel Today Z00.00 - Encounter for general adult medical examination without abnormal findings Comprehensive [place]. Panel Fast Today Z00.00 - Encounter for general adult medical examination without abnormal findings
[2025-03-11 14:49] VITALS: BP 122/70; PULSE 76; RESP 12; TEMP 36.4; O2SAT 98; BMI 21.5
== END 2025-03-11 15:32 | disposition home or self-care (01) ==
LOC: HO.HMCFM 14:39
PROVIDERS: PCP Family Medicine; Visit Provider Family Medicine
DX: I10 Essential (primary) hypertension (principal); Z98.1 Arthrodesis status; E78.00 Pure hypercholesterolemia, unspecified; R13.10 Dysphagia, unspecified

== ENCOUNTER → 2025-03-11 14:39 | Outpatient (BNVA) | payer MEDICARE, SELFPAY | PROVIDERS: PCP Family Medicine; Visit Provider Family Medicine | DX: I10 Essential (primary) hypertension (principal); E78.00 Pure hypercholesterolemia, unspecified; R13.10 Dysphagia, unspecified; Z98.1 Arthrodesis status; F17.200 Nicotine dependence, unspecified, uncomplicated; Z71.6 Tobacco abuse counseling | CPT/HCPCS: 96127; 99212 ==

== ENCOUNTER 2025-03-17 10:02 | Outpatient (REF) | payer MEDICARE, SELFPAY | END 2025-03-17 10:03 | disposition home or self-care (01) | LOC: HO.MAMMO 10:02 | PROVIDERS: PCP Family Medicine; Visit Provider Family Medicine | DX: Z12.31 Encounter for screening mammogram for malignant neoplasm of breast (principal) | CPT/HCPCS: 77063; 77067 ==

== ENCOUNTER → 2025-03-17 10:15 | Outpatient (BNV) | payer MEDICARE, SELFPAY | PROVIDERS: PCP Family Medicine; Visit Provider Internal Medicine | DX: Z12.31 Encounter for screening mammogram for malignant neoplasm of breast (principal) | CPT/HCPCS: 77063; 77067 ==